=== PATIENT | female | born 1975 | race Caucasian/White ===

== ENCOUNTER 2016-09-05 00:37 | Inpatient (IN) | payer MEDICAID ==
[2016-09-05 00:51] VITALS: BMI 24.5
[2016-09-05] MEDS ORDERED: Morphine 2 mg/ml ISec IVP STA (00:51)
--- NOTE | 2016-09-05 00:57 | ED PDOC ---
Arrival/HPI - General Time Seen by Provider: 09/05/16 00:39 Historian: Patient - History of Present Illness Narrative History of Present Illness (Text): 09/05/16 01:07 Felisa Little is a 41 year old female, whose past medical history includes seizure, diverticulitis, appendectomy, and tubal ligation, presents to the emergency department for evaluation following a seizure episode prior to arrival. As per family who called ambulance, patient had a seizure episode while she was in the bath tub. Currently patient is alert, oriented X3 and is complaining of abdominal pain. States she did not take her seizure medications today. Denies any fever, chills, headache, nausea, vomiting, urinary symptoms, or any other complaints at this time. 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 - Integumentary Hx Dermatological Disorder: No - Musculoskeletal/Rheumatological Hx Falls: No - Gastrointestinal Hx Gastrointestinal Disorders: Yes Hx Diverticulitis: Yes - Genitourinary/Gynecological Hx Genitourinary Disorders: No - Psychiatric Hx Depression: No Hx Emotional Abuse: No Hx Physical Abuse: No Hx Substance Use: No - Surgical History Hx Appendectomy: Yes Other/Comment: ovarian cysts removed - Anesthesia Hx Anesthesia: Yes Hx Anesthesia Reactions: No - Suicidal Assessment Feels Threatened In Home Enviroment: No Family/Social History - Physician Review Nursing Documentation Reviewed: Yes Family/Social History: No Known Family HX Smoking Status: Former Smoker Hx Alcohol Use: Yes Hx Substance Use: No Hx Substance Use Treatment: No Allergies/Home Meds Allergies/Adverse Reactions: Allergies No Known Allergies Allergy (Verified 09/05/16 00:51) Review of Systems - Physician Review All systems were reviewed & negative as marked: Yes - Review of Systems Constitutional: Normal. absent: Fatigue, Fevers Respiratory: Normal. absent: SOB, Cough Cardiovascular: Normal. absent: Chest Pain Gastrointestinal: Abdominal Pain. absent: Diarrhea, Nausea, Vomiting Neurological: Seizure. absent: Headache, Dizziness Psychiatric: Normal Physical Exam Vital Signs Reviewed: Yes Vital Signs Temp Pulse Resp BP Pulse Ox 09/05/16 05:28 52 L 14 111/62 100 09/05/16 04:37 60 22 113/60 100 09/05/16 03:28 98.5 F 72 24 124/77 100 09/05/16 01:57 66 26 H 127/77 97 09/05/16 00:51 97.7 F 67 20 140/76 97 Temperature: Afebrile Blood Pressure: Normal Pulse: Regular Respiratory Rate: Normal Appearance: Positive for: Well-Appearing, Non-Toxic, Comfortable Pain Distress: None Mental Status: Positive for: Alert and Oriented X 3 - Systems Exam Head: Present: Atraumatic, Normocephalic Pupils: Present: PERRL Extroacular Muscles: Present: EOMI Conjunctiva: Present: Normal Mouth: Present: Moist Mucous Membranes Neck: Present: Normal Range of Motion Respiratory/Chest: Present: Clear to Auscultation, Good Air Exchange. No: Respiratory Distress, Accessory Muscle Use Cardiovascular: Present: Regular Rate and Rhythm, Normal S1, S2. No: Murmurs Abdomen: Present: Tenderness (diffuse abdominal tenderness ), Normal Bowel Sounds. No: Distention, Peritoneal Signs, Rebound, Guarding Upper Extremity: Present: Normal Inspection. No: Cyanosis, Edema Lower Extremity: Present: Normal Inspection. No: Edema Neurological: Present: GCS=15, CN II-XII Intact, Speech Normal, Motor Func Grossly Intact, Normal Sensory Function Skin: Present: Warm, Dry, Normal Color. No: Rashes Psychiatric: Present: Alert, Oriented x 3, Normal Insight, Normal Concentration Medical Decision Making ED Course and Treatment: 09/05/16 00:55 Impression: A 41 year old female who presents to emergency department for evaluation of seizure episode prior to arrival. Plan: -- EKG -- Labs, cardiac enzymes -- Keppra -- Morphine -- Protonix -- IV fluids -- Blood culture -- Urine Culture -- Urinalysis -- Reassess and disposition Progress Notes: 09/05/16 01:45 Patient with lactate of 3.3. Code sepsis called. 09/05/16 04:52 EKG reviewed by me: NSR @ 64 BPM. Normal [place]. Normal interval. EXAM: CT Abdomen and Pelvis Without Intravenous Contrast FINDINGS: Lower thorax: The bilateral lung bases are clear. ABDOMEN: Liver: Fatty infiltration of the liver is again identified. Gallbladder and bile ducts: The gallbladder is decompressed, without and with calcified stones. No intra-extrahepatic biliary ductal dilation. Pancreas: Limited evaluation secondary to the lack of intravenous contrast. Spleen: No acute findings. Adrenals: No acute findings. Kidneys and ureters: No obstructing stones. No hydronephrosis. PELVIS: Bladder: No acute findings. Reproductive: A 32 mm focus of decreased attenuation is identified within the left hemipelvis, statistically representing a cyst. The uterus is enlarged, and nodular in contour. Appendix: The appendix is not definitively visualized, however there is no pericecal inflammatory change to suggest appendicitis. ABDOMEN and PELVIS: Stomach and bowel: No acute findings. Peritoneum: No acute findings. Lymph nodes: Limited evaluation without intravenous contrast. Vasculature: No aortic aneurysm. Bones: No acute fracture. IMPRESSION: Findings within the left hemipelvis which statistically represent a cyst, for which ultrasound may be performed for confirmation. 09/05/16 04:55 Case discussed with who is aware and agrees with the plan to admit patient to [facility] for abdominal pain and sepsis. Accepts patient under hospitalist service. - Lab Interpretations Microbiology Results: Microbiology Results 09/05/16 02:30 Urine,Clean Catch Urine Culture - Final No Growth (<1,000 CFU/ML) 09/05/16 01:50 Blood-Venous Blood Culture - Preliminary NO GROWTH AFTER 24 HOURS 09/05/16 01:30 Blood-Venous Blood Culture - Preliminary NO GROWTH AFTER 24 HOURS Lab Results: 09/05/16 00:45 09/05/16 00:45 Lab Results 09/05/16 02:30: Urine Color Yellow, Urine Appearance Cloudy, Urine pH 8.0, Ur Specific [place] 1.020, Urine Protein Negative, Urine Glucose (UA) Negative, Urine Ketones Trace H, Urine Blood Small H, Urine Nitrate Negative, Urine Bilirubin Negative, Urine Urobilinogen 0.2, Ur Leukocyte Esterase Small H, Urine RBC 1 - 3, Urine WBC 2 - 5, Ur Epithelial Cells 6 - 8, Urine Bacteria Many , Urine Other Mucus 09/05/16 01:10: pO2 44, VBG pH 7.46 H, VBG pCO2 30.0 L, VBG HCO3 21.3, VBG Total CO2 22.2, VBG O2 Sat (Calc) 84.9 H, VBG Base Excess -1.5 L, VBG Potassium 5.2, Glucose 126 H, Lactate 3.3 H, FiO2 21.0, Sodium 140.0, Chloride 111.0 H, Venous Blood Potassium 5.2 09/05/16 00:45: Phosphorus 2.4 L, Magnesium 2.2 09/05/16 00:45: Procalcitonin < 0.05 L 09/05/16 00:45: Sodium 141, Potassium 3.7, Chloride 109 H, Carbon Dioxide 19 L, Anion Gap 17, BUN 12, Creatinine 0.7, Est GFR ( Amer) > 60, Est GFR (Non- Af Amer) > 60, Random Glucose 134 H, Calcium 9.7, Total Bilirubin 0.9, AST 29, ALT 43, Alkaline Phosphatase 69, Lactate Dehydrogenase 532, Total Creatine Kinase 126, Troponin I < 0.01, Total Protein 8.1, Albumin 4.2, Globulin 3.9, Albumin/Globulin Ratio 1.1, Amylase 88, Lipase 98 09/05/16 00:45: PT 11.2, INR 1.04, APTT 23.6 L 09/05/16 00:45: WBC 15.4 H D, RBC 4.42, Hgb 10.5 L, Hct 32.4 L, MCV 73.3 L, MCH 23.8 L, MCHC 32.4, RDW 16.5 H, Plt Count 362, MPV 9.8, Gran % 75.9 H, Lymph % ( Auto) 15.2 L, [place] % (Auto) 7.9 H, Eos % (Auto) 0.7 L, Baso % (Auto) 0.3, Gran # 11.65 H, Lymph # 2.3, Ma[place] # 1.2 H, Eos # 0.1, Baso # 0.04 - RAD Interpretation Radiology Orders: 09/05/16 01:10 ABD & PELVIS W/O PO OR IV CONT [CT] Stat 09/05/16 04:00 CHEST PORTABLE [RAD] Stat - Medication Orders Current Medication Orders: Acetaminophen (Tylenol 325mg Tab) 650 mg PO Q6H PRN PRN Reason: Pain, moderate (4-7) Last Admin: 09/06/16 08:37 Dose: 650 mg Re-Assess: [facility] Pain/Vitals Document 09/06/16 09:37 [facility] (Rec: 09/06/16 15:52 [id number] Pain Reassessment Is This A Pain ReAssessment? Yes Presence of Pain Presence of Pain Yes Levetiracetam (Keppra 500mg Ivpb) 500 mg in 100 mls @ 300 mls/hr IV Q12 [facility] Last Admin: 09/06/16 10:21 Dose: 300 mls/hr Sodium Chloride (Sodium Chloride 0.9%) 1,000 mls @ 100 mls/hr IV .Q10H [facility] Last Admin: 09/06/16 20:53 Dose: 100 mls/hr Morphine Sulfate (Morphine) 0.5 mg IVP Q4H PRN PRN Reason: Pain, moderate (4-7) Last Admin: 09/06/16 15:29 Dose: 0.5 mg Re-Assess: [facility] Pain Assessment Document 09/06/16 16:29 [facility] (Rec: 09/06/16 16:57 [id number] Pain Reassessment Is this a pain reassessment? Yes Sleep Is patient sleeping during reassessment? No Presence of Pain Presence of Pain Yes Pain Scale Used Pain Scale Used Numeric Description Intensity of Pain at present 1 Ondansetron HCl (Zofran Inj) 4 mg IVP Q6H PRN PRN Reason: Nausea/Vomiting Last Admin: 09/06/16 08:38 Dose: 4 mg Pantoprazole Sodium (Protonix Inj) 40 mg IVP BID [facility] Last Admin: 09/06/16 17:53 Dose: 40 mg Polyethylene Glycol (Miralax) 17 gm PO BID [facility] Last Admin: 09/06/16 17:54 Dose: 17 gm Discontinued Medications Heparin Sodium (Porcine) (Heparin) 5,000 units SC Q8 [facility] PRN Reason: Protocol Last Admin: 09/06/16 05:03 Dose: 5,000 units Hydromorphone HCl (Dilaudid) 2 mg IVP STAT ST[facility] Stop: 09/05/16 01:55 Last Admin: 09/05/16 02:13 Dose: 2 mg Hydromorphone HCl (Dilaudid) 2 mg IVP STAT STA Stop: 09/05/16 04:30 Last Admin: 09/05/16 04:48 Dose: 2 mg Re-Assess: [facility] Pain Assessment Document 09/05/16 05:48 [facility] (Rec: 09/05/16 06:43 [facility] [id number]) Pain Reassessment Is this a pain reassessment? Yes Sleep Is patient sleeping during reassessment? Yes Levetiracetam (Keppra 500mg Ivpb) 500 mg in 100 mls @ 400 mls/hr IVPB STAT STA Stop: 09/05/16 01:07 Last Admin: 09/05/16 01:55 Dose: 400 mls/hr Pantoprazole Sodium 40 mg/ (Sodium Chloride) 100 mls @ 400 mls/hr IV STAT STA Stop: 09/05/16 01:05 Last Admin: 09/05/16 02:12 Dose: 400 mls/hr Sodium Chloride (Sodium Chloride 0.9%) 1,000 mls @ 100 mls/hr IV .Q10H [facility] Stop: 09/05/16 10:50 Last Admin: 09/05/16 02:49 Dose: 100 mls/hr Sodium Chloride 1,800 ml/ IV (SUPPLIES) 1,800 mls @ 3,538.02 mls/hr IV ONCE ONE PRN Reason: 60 ML/KG/HR Stop: 09/05/16 01:38 Last Admin: 09/05/16 02:49 Dose: 3,538.02 mls/hr Vancomycin HCl (Vancomycin 1gm) 1 gm in 250 mls @ 167 mls/hr IVPB STAT ST[facility] PRN Reason: Protocol Stop: 09/05/16 03:06 Last Admin: 09/05/16 02:47 Dose: 167 mls/hr Piperacillin Sod/Tazobactam Sod (Zosyn 4.5 Gm In Ns 100ml) 4.5 gm in 100 mls @ 200 mls/hr IVPB STAT STA PRN Reason: Protocol Stop: 09/05/16 02:06 Last Admin: 09/05/16 02:35 Dose: 200 mls/hr Metronidazole (Flagyl) 500 mg in 100 mls @ 100 mls/hr IVPB Q8 [facility] PRN Reason: Protocol Last Admin: 09/06/16 15:21 Dose: 100 mls/hr Ceftriaxone Sodium (Rocephin 1 Gram Ivpb) 1 gm in 100 mls @ 100 mls/hr IVPB DAILY [facility] PRN Reason: Protocol Last Admin: 09/06/16 13:31 Dose: 100 mls/hr Sodium Chloride (Sodium Chloride 0.9%) 1,000 mls @ 100 mls/hr IV .Q10H [facility] Last Admin: 09/05/16 15:00 Dose: Sodium Chloride (Sodium Chloride 0.9%) 100 mls @ 100 mls/hr IV .Q1H [facility] Last Admin: 09/05/16 19:54 Dose: 100 mls/hr Levetiracetam (Keppra) 500 mg PO BID [facility] Last Admin: 09/05/16 10:41 Dose: Morphine Sulfate (Morphine) 2 mg IVP STAT STA Stop: 09/05/16 00:52 Last Admin: 09/05/16 01:23 Dose: 2 mg Re-Assess: ZEINAB Pain Assessment Document 09/05/16 02:23 [facility] (Rec: 09/05/16 06:43 [facility] [id number]) Pain Reassessment Is this a pain reassessment? Yes Sleep Is patient sleeping during reassessment? Yes Ondansetron HCl (Zofran Inj) 4 mg IVP STAT STA Stop: 09/05/16 00:52 Last Admin: 09/05/16 01:23 Dose: 4 mg Pantoprazole Sodium (Protonix Inj) 40 mg IVP DAILY [facility] Last Admin: 09/05/16 10:43 Dose: 40 mg Potassium Chloride (Potassium Chloride Oral Soln) 40 meq PO ONCE ONE Stop: 09/06/16 09:20 Last Admin: 09/06/16 10:20 Dose: 40 meq Potassium Phos/Sodium Phos (Neutra-Phos) 1 pkt PO ONCE ONE Stop: 09/06/16 14:24 Last Admin: 09/06/16 15:23 Dose: 1 pkt - Scribe Statement The provider has reviewed the documentation as recorded by the Aimee Couch Provider Attestation: All medical record entries made by the Busteribjanuary were at my direction and personally dictated by me. I have reviewed the chart and agree that the record accurately reflects my personal performance of the history, physical exam, medical decision making, and the department course for this patient. I have also personally directed, reviewed, and agree with the discharge instructions and disposition. Disposition/Present on Arrival - Present on Arrival Any Indicators Present on Arrival: No History of DVT/PE: No History of Uncontrolled Diabetes: No Urinary Catheter: No History Surgical Site Infection Following: None - Disposition Have Diagnosis and Disposition been Completed?: Yes Diagnosis: Seizure, Abdominal pain Disposition: HOSPITALIZED Disposition Time: 05:00 Condition: GOOD
[2016-09-05 00:59] LABS: ADD MANUAL DIFF? NO
[2016-09-05 01:02] LABS: BASO # 0.04 K/mm3 (0.0-2.0); BASO % 0.3 % (0.0-3.0); EOS # 0.1 (0.0-0.7); EOS % 0.7 % (1.5-5.0); GRAN # 11.65 (1.4-6.5); GRAN % 75.9 % (50.0-68.0); HEMATOCRIT 32.4 % (36.0-48.0); LYMPH # 2.3 (1.2-3.4); LYMPH % 15.2 % (22.0-35.0); MEAN CELL VOLUME 73.3 fL (80.0-105.0); MEAN CORPUSCULAR HEMOGLOBIN 23.8 pg (25.0-35.0); MEAN CORPUSCULAR HGB CONC 32.4 g/dl (31.0-37.0); MEAN PLATELET VOLUME 9.8 fl (7.0-11.0); MONO # 1.2 (0.1-0.6); MONO % 7.9 % (1.0-6.0); PLATELET COUNT 362 10^3/uL (120.0-450.0); RED CELL DISTRIBUTION WIDTH 16.5 % (11.5-14.5); WHITE BLOOD COUNT 15.4 10^3/ul (4.5-11.0)
[2016-09-05 01:07] LABS: INR 1.04 (0.93-1.08); PARTIAL THROMBOPLASTIN TIME 23.6 Seconds (23.7-30.8)
[2016-09-05 01:10] LABS: ALB/GLOB RATIO 1.1 (1.1-1.8); ALKALINE PHOSPHATASE 69 U/L (38-133); ALT/SGPT 43 U/L (7-56); AMYLASE 88 U/L (35-125); AST/SGOT 29 U/L (15-39); BILIRUBIN,TOTAL 0.9 mg/dL (0.2-1.3); BLOOD UREA NITROGEN 12 mg/dL (7-21); CALCIUM 9.7 mg/dL (8.4-10.5); CARBON DIOXIDE 19 mmol/L (21-33); GFR AFRICAN-AMERICAN > 60; GLUCOSE,RANDOM 134 mg/dL (70-110); LIPASE 98 U/L (23-300); POTASSIUM 3.7 mmol/L (3.6-5.0); SODIUM 141 mmol/L (132-148); TOTAL PROTEIN 8.1 g/dL (5.8-8.3)
[2016-09-05 01:12] LABS: CHLORIDE 109 mmol/L (98-107)
[2016-09-05 01:21] LABS: VENOUS BLOOD GAS BASE EXCESS -1.5 mmol/L (0.0-2.0); VENOUS BLOOD PH 7.46 (7.32-7.43)
[2016-09-05] MEDS: Sodium Chloride 0.9% 1,000 ML IV STA ×3 (01:23→18:00)
[2016-09-05] MEDS: levETIRAcetam 500mg IVPB 500 MG/100 ML BAG IVPB STA ×2 (01:24→01:55)
[2016-09-05 01:32] LABS: TROPONIN I < 0.01 ng/mL
[2016-09-05] MEDS ORDERED: Vancomycin 1gm in NS 250ml 1 GM/250 ML BAG IVPB STA (01:37)
[2016-09-05] MEDS ORDERED: HYDROmorphone 2 mg/ml ISec IVP STA ×2 (01:54→04:29)
[2016-09-05] MEDS: Pantoprazole 40 MG in Sodium Chloride 0.9% 100 ML IV STA ×2 (01:55→02:12)
[2016-09-05] MEDS: Piperacill/Tazo 4.5gm in NS 4.5 GM/100 ML BAG IVPB STA ×2 (02:12→02:35)
[2016-09-05 02:19] LABS: MAGNESIUM 2.2 mg/dL (1.7-2.2); PHOSPHOROUS 2.4 mg/dL (2.5-4.5)
[2016-09-05 03:04] LABS: URINE BILIRUBIN NEGATIVE (NEGATIVE); URINE BLOOD SMALL (NEGATIVE); URINE GLUCOSE (UA) NEGATIVE (NEGATIVE); URINE KETONE TRACE mg/dL (NEGATIVE); URINE LEUKOCYTE ESTERASE SMALL Leu/uL (NEGATIVE); URINE PROTEIN NEGATIVE mg/dL (<30 mg/dL); URINE UROBILINOGEN 0.2 E.U./dL (<1 E.U./dL)
[2016-09-05 03:10] LABS: URINE APPEARANCE CLOUDY (CLEAR); URINE COLOR YELLOW (YELLOW)
[2016-09-05 03:39] LABS: URINE BACTERIA MANY (NEG)
--- NOTE | 2016-09-05 03:56 | CT ---
EXAM: CT Abdomen and Pelvis Without Intravenous Contrast CLINICAL HISTORY: 41 years old, female; Pain; Abdominal pain; Generalized; Additional info: Abd pain TECHNIQUE: Axial computed tomography images of the abdomen and pelvis without intravenous contrast. This CT exam was performed using one or more of the following dose reduction techniques: automated exposure control, adjustment of the mA and/or kV according to patient size, and/or use of iterative reconstruction technique. Coronal and sagittal reformatted images were created and reviewed. COMPARISON: CT - ABD PELVIS W/O PO OR IV CONT 01/02/2016 11:27:29 AM FINDINGS: Lower thorax: The bilateral lung bases are clear. ABDOMEN: Liver: Fatty infiltration of the liver is again identified. Gallbladder and bile ducts: The gallbladder is decompressed, without and with calcified stones. No intra-extrahepatic biliary ductal dilation. Pancreas: Limited evaluation secondary to the lack of intravenous contrast. Spleen: No acute findings. Adrenals: No acute findings. Kidneys and ureters: No obstructing stones. No hydronephrosis. PELVIS: Bladder: No acute findings. Reproductive: A 32 mm focus of decreased attenuation is identified within the left hemipelvis, statistically representing a cyst. The uterus is enlarged, and nodular in contour. Appendix: The appendix is not definitively visualized, however there is no pericecal inflammatory change to suggest appendicitis. ABDOMEN and PELVIS: Stomach and bowel: No acute findings. Peritoneum: No acute findings. Lymph nodes: Limited evaluation without intravenous contrast. Vasculature: No aortic aneurysm. Bones: No acute fracture. IMPRESSION: Findings within the left hemipelvis which statistically represent a cyst, for which ultrasound may be performed for confirmation.
[2016-09-05 04:39] LABS: VENOUS BLOOD GAS BASE EXCESS -5.5 mmol/L (0.0-2.0); VENOUS BLOOD PH 7.24 (7.32-7.43)
--- NOTE | 2016-09-05 05:45 | CP.PCM.HP ---
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 Pt reports that she does not remember the events and remembers waking up in the ambulance. Pt is accompanied by her daughter who reports that the event did not look like a seizure, as her mother was complaining of chills, but was not actively shaking. The pt's daughter reports that her younger brother witnessed the event. Pt also reports that she is also experiencing mid abdominal pain, nausea, and has vomited 2 times day. Pt reports that she has a decreased appetite. Pt also reports chills and a headache. Pt denies fever, chest pain, shortness of breath, diarrhea, and constipation. 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 absent: Fever - EENT Eyes: absent: Blurred Vision Ears: absent: Disequilibrium - Cardiovascular Cardiovascular: absent: Chest Pain, Dyspnea - Respiratory Respiratory: absent: Cough - Gastrointestinal Gastrointestinal: Abdominal Pain, Nausea, Vomiting. absent: Diarrhea - Genitourinary Genitourinary: absent: Dysuria - Musculoskeletal Musculoskeletal: Back Pain - Neurological Neurological: Headaches. absent: Dizziness - Hematologic/Lymphatic Hematologic: absent: Easy Bleeding Past Patient History - Infectious Disease Hx of Infectious Diseases: None - Tetanus Immunizations Tetanus Immunization: Unknown - Past Social History Smoking Status: Former Smoker - CARDIAC Hx Cardiac Disorders: No - PULMONARY Hx Asthma: Yes (as a child) - NEUROLOGICAL Hx Seizures: Yes (keppra daily) - HEENT Hx HEENT Problems: No - RENAL Hx Chronic Kidney Disease: No - HEMATOLOGICAL/ONCOLOGICAL Hx Blood Disorders: Yes Other/Comment: lead poisoning as a child - INTEGUMENTARY Hx Dermatological Problems: No - MUSCULOSKELETAL/RHEUMATOLOGICAL Hx Falls: No - GASTROINTESTINAL Hx Gastrointestinal Disorders: Yes Hx Diverticulitis: Yes - GENITOURINARY/GYNECOLOGICAL Hx Genitourinary Disorders: No - PSYCHIATRIC Hx Depression: No Hx Emotional Abuse: No Hx Physical Abuse: No Hx Substance Use: No - SURGICAL HISTORY Hx Appendectomy: Yes Other/Comment: ovarian cysts removed - ANESTHESIA Hx Anesthesia: Yes Hx Anesthesia Reactions: No Meds Allergies/Adverse Reactions: Allergies Allergy/AdvReac Type Severity Reaction Status Date / Time No Known Allergies Allergy Verified 09/05/16 00:51 Physical Exam - Constitutional Appears: No Acute Distress - Head Exam Head Exam: ATRAUMATIC, NORMOCEPHALIC - Eye Exam Eye Exam: EOMI, PERRL - ENT Exam ENT Exam: Mucous Membranes Moist. absent: Mucous Membranes Dry - Respiratory Exam Respiratory Exam: Clear to Auscultation Bilateral. absent: Rales, Rhonchi, Wheezes - Cardiovascular Exam Cardiovascular Exam: +S1, +S2. absent: Gallop, Rubs - GI/Abdominal Exam GI & Abdominal Exam: Soft, Tenderness. absent: Distended, Rigid - Extremities Exam Extremities exam: Positive for: full ROM. Negative for: pedal edema - Neurological Exam Neurological exam: Alert, Oriented x3 - Psychiatric Exam Psychiatric exam: Normal Affect, Normal Mood - Skin Skin Exam: Normal Color, Warm Results - Vital Signs Recent Vital Signs: Last Vital Signs Temp 98.5 F 09/05/16 03:28 Pulse 60 09/05/16 04:37 Resp 22 09/05/16 04:37 BP 113/60 09/05/16 04:37 Pulse Ox 100 09/05/16 04:37 - Labs Result Diagrams: 09/05/16 00:45 09/05/16 00:45 Labs: Laboratory Results - last 24 hr 09/05/16 04:15 pO2 45 VBG pH 7.24 L VBG pCO2 52.0 VBG HCO3 22.3 VBG Total CO2 23.9 VBG O2 Sat (Calc) 77.3 H VBG Base Excess -5.5 L VBG Potassium 3.5 L Sodium 141.0 Chloride 118.0 H Glucose 131 H Lactate 1.6 FiO2 21.0 Venous Blood Potassium 3.5 L Assessment & Plan - Assessment and Plan (Free Text) Assessment: SIRS/Code Sepsis: WBC - 15.4 Initial lactate 3.3, repeat lactate 1.6 Afebrile, nontachycardic, normotensive CXR pending read Procalcitonin pending Abd/Pelvis CT w/o po or IV contrast- left hemipelvic cyst (please see full report) Blood cultures, urine cultures pending Urinalysis: urine positive for blood, trace ketones, leukocyte esterase positive Vacomycin 1 gm IV 1d Zosyn 3.375 gm IV q6h Abdominal Pain/Vomiting: Abd/Pelvis CT w/o po or Iv contrast- left hemipelvic cyst (please see full report) Procalcitonin pending Zofran 4 mg IV q4h prn for nausea NPO NS IVF 100 cc/hr Morphine 0.5 mg IV q4h prn for pain Anemia: H/H: 10.5/32.4 Iron studies pending: iron, TIBC, transferrin, ferritin Prophylactic Measures: GI: Protonix 40 mg IV qd DVT: SCDs, heparin 5000 units sc q8h <Mila Ritter - Last Filed: 09/05/16 07:03> Results - Vital Signs Recent Vital Signs: Last Vital Signs Temp 98.5 F 09/05/16 03:28 Pulse 52 L 09/05/16 05:28 Resp 14 09/05/16 05:28 BP 111/62 09/05/16 05:28 Pulse Ox 100 09/05/16 05:28 - Labs Result Diagrams: 09/05/16 00:45 09/05/16 00:45 Labs: Laboratory Results - last 24 hr 09/05/16 04:15 pO2 45 VBG pH 7.24 L VBG pCO2 52.0 VBG HCO3 22.3 VBG Total CO2 23.9 VBG O2 Sat (Calc) 77.3 H VBG Base Excess -5.5 L VBG Potassium 3.5 L Sodium 141.0 Chloride 118.0 H Glucose 131 H Lactate 1.6 FiO2 21.0 Venous Blood Potassium 3.5 L Attending/Attestation - Attestation I have personally seen and examined this patient.: Yes I have fully participated in the care of the patient.: Yes I have reviewed all pertinent clinical information: Yes Notes (Text): 09/05/16 07:02 Patient was seen when she was in bed # 16 in the ER. Agree with history, physical examination, assessment and plan.
[2016-09-05] MEDS ORDERED: Morphine 2 mg/ml ISec IVP PRN (06:35)
--- NOTE | 2016-09-05 07:16 | PCM.SEPTIC ---
Sepsis Progress Note - Reassessment Type Date of Evaluation: 09/05/16 Time of Evaluation: 07:00 Reassessment Type: Non-invasive reassessment - Non Invasive Reassessment Were the most recent vital sign reviewed: Yes Vital Sign (Latest): Temp Pulse Resp BP Pulse Ox 98.5 F 52 L 14 111/62 100 09/05/16 03:28 09/05/16 05:28 09/05/16 05:28 09/05/16 05:28 09/05/16 05:28 7am vitals BP: 103/55 P: 54 100% on 2L O2 RR: 18 Tepm: 97.7 Cardiovascular: Yes: Regular Rate, Rhythm. No: Edema Respiratory: Yes: Normal Breath Sounds. No: Accessory Muscle Use, Rales, Wheezing Capillary Refill: Normal (Less than 2 sec) Pulses: Normal Radial, Normal Dorsalis Pedis, Normal Posterior Tibialis Skin: Normal Color, Warm, Dry
--- NOTE | 2016-09-05 08:08 | RAD ---
HISTORY: SEPSIS COMPARISON: 01/08/2016 FINDINGS: LUNGS: No active pulmonary disease. PLEURA: No significant pleural effusion identified, no pneumothorax apparent. CARDIOVASCULAR: Normal. OSSEOUS STRUCTURES: No significant abnormalities. VISUALIZED UPPER ABDOMEN: Normal. OTHER FINDINGS: None. IMPRESSION: No active disease.
[2016-09-05 08:33] VITALS: RESP 18
--- NOTE | 2016-09-05 08:48 | CT ---
PROCEDURE: CT HEAD WITHOUT CONTRAST. HISTORY: Headache, s/p fall at home COMPARISON: 01/02/2016 TECHNIQUE: Axial computed tomography images were obtained through the head/brain without intravenous contrast. Radiation dose: Total exam DLP = 688.95 mGy-cm. This CT exam was performed using one or more of the following dose reduction techniques: Automated exposure control, adjustment of the mA and/or kV according to patient size, and/or use of iterative reconstruction technique. FINDINGS: HEMORRHAGE: No intracranial hemorrhage. BRAIN: [place]field-white matter differentiation is preserved. There is no mass, mass effect or abnormal extra-axial fluid collection. VENTRICLES: The ventricles are normal in size, shape and configuration. There is mild asymmetry in the size of the lateral ventricles, right larger than left, likely an anatomic variant. CALVARIUM: There is no calvarial fracture or extracranial soft tissue swelling. PARANASAL SINUSES: There is scattered mucosal thickening in the ethmoid air cells. The remaining included paranasal sinuses are predominantly clear. MASTOID AIR CELLS: Predominantly clear. OTHER FINDINGS: None. IMPRESSION: No acute intracranial abnormality.
[2016-09-05] MEDS: metroNIDAZOLE IV 500 mg/100 ml 500 MG/100 ML BAG IVPB SCH ×3 (09:02→21:10)
[2016-09-05 09:26] LABS: IRON 29 ug/dL (45-180)
[2016-09-05] MEDS: cefTRIAXone 1 gm 1 GM/100 ML BAG IVPB SCH (10:40)
[2016-09-05] MEDS: levETIRAcetam 500mg IVPB 500 MG/100 ML BAG IV SCH ×2 (11:23→21:12)
[2016-09-05] MEDS ORDERED: Piperacillin/Tazobact 3.375 gm 100 ML IVPB SCH (12:00)
--- NOTE | 2016-09-05 12:49 | CON ---
DATE: 09/05/2016 This is a 41-year-old female with a past medical history of asthma and diverticulitis and appendiciti s. Came with a past medical history of seizures. The patient is on Keppra. Came to the hospital wi th abdominal pain and workup in progress. PAST MEDICAL HISTORY: As above. ALLERGIES: No known drug allergies. SOCIAL HISTORY: The patient does not smoke, does not drink. PHYSICAL EXAMINATION: HEENT: Normocephalic, atraumatic. VITAL SIGNS: Blood pressure 113/60. NECK: Supple. NEUROLOGIC: Alert, awake, oriented x 3. No aphasia. Cranial nerves II-XII were tested. Pupils jerri ctive. EOM intact. Visual field full. No facial asymmetry. Tongue midline. Motor examination: M oves all the extremities equally. Tone normal. Deep tendon reflexes 1+. Both plantars are downgoin g. Sensory appears intact. Cerebellar, gait deferred. Workup in progress. WBC 15.4, hemoglobin 10.5, hematocrit 32.4, platelets 362. Sodium 141, potassiu m 3.7, chloride 109, CO2 19, glucose 134, BUN 12, creatinine 0.7. Continue present management. We will follow up. Noam Pena MD cc: [id number] TT: 09/05/2016 12:48:28 Confirmation # [id number] Dictation # [id number]
--- NOTE | 2016-09-05 12:53 | CON ---
DATE: 09/05/2016 Seen and examined at the bedside this morning. REQUEST FOR CONSULT: For abdominal pain. 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 The patient was brought by ambulance and is in the Emergency Room, awake and alert, complaining of abdominal pain. Originally, the patient comp lained of abdominal pain in the right quadrant, but now complaints of diffuse abdominal pain. Appare ntly, the patient did not take her seizure medication yesterday. Right now, the patient on admission was found to have elevated WBC count. The patient complained of having chills and a headache. Matheus es any known fever, chest pain, shortness of breath. She does report constipation and complains of l ower abdominal pain. Denies any dysuria or hematuria. Denies any weight loss or loss of appetite. She does complain of reflux and usually has the abdominal pain after eating heavy foods, usually frie d food. Never had an endoscopy or colonoscopy. On admission, she did have a CT scan of abdomen and pelvis done without any oral or IV contrast and it showed enlarged uterus and nodular in contour as w ell as a 32 mm focus of decreased attenuation in the left hemipelvis likely representing a cyst. No reports of any overt GI bleed. 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 PAST SURGICAL HISTORY: She had abdominal surgery for a congenital condition, appendectomy. Last menstrual period was 08/2016. FAMILY HISTORY: Hypertension, asthma, diabetes, and cancer unknown. SOCIAL HISTORY: Denies tobacco use. Drinks 1 bottle of beer at least twice a month, only socially. Denies any substance abuse. ALLERGIES: No known drug allergies. MEDICATIONS: Reviewed as per MAR. REVIEW OF SYSTEMS: Systems were reviewed with positive findings, see HPI. VITAL SIGNS: Temperature is 97.7, blood pressure 103/51, pulse 54, respirations 18. LABORATORY DATA: WBC is 15.4, H and H are 10.5 and 32.4, platelets are 362. PT is 11.2, INR is 1.0 4, PTT 23.6. Chem: Sodium 141, K 3.7, BUN 12, creatinine 0.7. Total bilirubin is 0.9, AST 29, ALT 43, alkaline phosphatase is 69. LDH is 532. Total CK is 126. Iron level 29 (that is low), TIBC 350 , percent saturation is 8 (that is low). Troponin is negative x 1. Urine was done; it showed small leukocyte esterase, trace of ketones, small blood. OTHER DIAGNOSTICS: She had a chest x-ray and that showed no active disease, no active pulmonary dise ase, no pleural effusion, no pneumothorax. Head CT: No intracranial hemorrhage, no mass, no acute i ntracranial abnormality. PHYSICAL EXAMINATION: HEENT: Sclerae are anicteric. NECK: Supple. CARDIAC: S1, S2. LUNGS: Sounds are clear. ABDOMEN: With bowel sounds. Soft. Positive tenderness to lower suprapubic area, more on the lower abdomen and suprapubic area. No rebound, guarding, or organomegaly. EXTREMITIES: Positive pulses. No edema. NEUROLOGIC: The patient is sleepy, is lethargic, but easily arousable and oriented. ASSESSMENT: This is a 41-year-old female with history of seizures secondary to lead poisoning. Repo rtedly had seizure at home. The patient reportedly forgot to take her medication, but the patient hargrove s been complaining of abdominal discomfort that seems mostly lower abdomen. CT scan: No acute bowel findings, but noted to have a left hemipelvis cyst. The patient is status post code sepsis. Mild a nemia. PLAN: Currently n.p.o. If patient's symptoms improve, will start with a clear liquid diet. Agree w [facility] pelvic sonogram. On IV antibiotics as per ID; she is on ceftriaxone and Flagyl. Continue Proton ix 40 daily, Zofran p.r.n. nausea. Is on DVT prophylaxis of heparin. She is pending an evaluation w [facility] ID and neuro. Will continue to follow along with you. Thank you for this consultation and for allowing us to participate in your patient's care. Will make further recommendations based upon patient's clinical course. The patient was seen and case discuss ed with Dr. Hannon. Genevieve BRAVO cc: [id number] TT: 09/05/2016 12:52:35 Confirmation # [id number] Dictation # [id number] mn
[2016-09-05] MEDS ORDERED: Sodium Chloride 0.9% 1,000 ML IV SCH (14:30)
[2016-09-05] MEDS ORDERED: Vancomycin 1gm in NS 250ml 1 GM/250 ML BAG IVPB SCH (15:00)
[2016-09-05] MEDS: POLYETHYLENE GLYCOL 3350 17 GM/Dose PACKET PO SCH (17:22)
--- NOTE | 2016-09-05 19:11 | CP.PCM.CON ---
History of Present Illness - History of Present Illness History of Present Illness: 40 year old female with PMH of diverticulitis, histoty of appendicitis S/P appendectomy, asthma, S/P abdominal surgery as a child was brought in to the ED because the patient apparently passed out at home while taking a bath in a bathtub. There was no note of convulsions, no trauma to the head. The patient also denies headache or dizziness, no chest pain, no palpitations, no SOB, no diarrhea. The patient complains of abdominal pain, which has been ongoing for years but has worsened in the past 3-4 days. The patient is currently comfortable in bed, not in distress. In the ED, CT of the abdomen and pelvis showed a pelvic cyst and nodular and enlarged uterus. Infectious Diseases consult is requested to further evaluate and manage. Review of Systems - Review of Systems All systems: reviewed and no additional remarkable complaints except (as per HPI ) Past Patient History - Infectious Disease Hx of Infectious Diseases: None - Tetanus Immunizations Tetanus Immunization: Unknown - Past Social History Smoking Status: Former Smoker - CARDIAC Hx Cardiac Disorders: No - PULMONARY Hx Asthma: Yes (as a child) - NEUROLOGICAL Hx Seizures: Yes (keppra daily) - HEENT Hx HEENT Problems: No - RENAL Hx Chronic Kidney Disease: No - HEMATOLOGICAL/ONCOLOGICAL Hx Blood Disorders: Yes Other/Comment: lead poisoning as a child - INTEGUMENTARY Hx Dermatological Problems: No - MUSCULOSKELETAL/RHEUMATOLOGICAL Hx Falls: No - GASTROINTESTINAL Hx Gastrointestinal Disorders: Yes Hx Diverticulitis: Yes - GENITOURINARY/GYNECOLOGICAL Hx Genitourinary Disorders: No - PSYCHIATRIC Hx Depression: No Hx Emotional Abuse: No Hx Physical Abuse: No Hx Substance Use: No - SURGICAL HISTORY Hx Appendectomy: Yes Other/Comment: ovarian cysts removed - ANESTHESIA Hx Anesthesia: Yes Hx Anesthesia Reactions: No Meds Allergies/Adverse Reactions: Allergies Allergy/AdvReac Type Severity Reaction Status Date / Time No Known Allergies Allergy Verified 09/05/16 00:51 - Medications Medications: Current Medications Heparin Sodium (Porcine) (Heparin) 5,000 units SC Q8 [facility] PRN Reason: Protocol Sodium Chloride (Sodium Chloride 0.9%) 1,000 mls @ 100 mls/hr IV .Q10H STA Stop: 09/05/16 10:50 Last Admin: 09/05/16 02:49 Dose: 100 mls/hr Vancomycin HCl (Vancomycin 1gm) 1 gm in 250 mls @ 167 mls/hr IVPB DAILY [facility] PRN Reason: Protocol Piperacillin Sod/Tazobactam Sod (Zosyn 3.375 In Ns 100ml) 100 mls @ 200 mls/hr IVPB Q6 [facility] PRN Reason: Protocol Stop: 09/05/16 18:29 Metronidazole (Flagyl) 500 mg in 100 mls @ 100 mls/hr IVPB Q8 [facility] PRN Reason: Protocol Last Admin: 09/05/16 09:02 Dose: 100 mls/hr Ceftriaxone Sodium (Rocephin 1 Gram Ivpb) 1 gm in 100 mls @ 100 mls/hr IVPB DAILY [facility] PRN Reason: Protocol Levetiracetam (Keppra) 500 mg PO BID [facility] Morphine Sulfate (Morphine) 0.5 mg IVP Q4H PRN PRN Reason: Pain, moderate (4-7) Ondansetron HCl (Zofran Inj) 4 mg IVP Q6H PRN PRN Reason: Nausea/Vomiting Pantoprazole Sodium (Protonix Inj) 40 mg IVP DAILY [facility] Physical Exam - Constitutional Appears: Non-toxic, No Acute Distress - Head Exam Head Exam: NORMAL INSPECTION - ENT Exam ENT Exam: Mucous Membranes Moist - Neck Exam Neck exam: Negative for: Lymphadenopathy, Meningismus - Respiratory Exam Respiratory Exam: Decreased Breath Sounds - Cardiovascular Exam Cardiovascular Exam: +S1, +S2 - GI/Abdominal Exam GI & Abdominal Exam: Soft. absent: Tenderness Results - Vital Signs Recent Vital Signs: Last Vital Signs Temp 97.7 F 09/05/16 07:30 Pulse 54 L 09/05/16 07:30 Resp 18 09/05/16 07:30 BP 103/51 L 09/05/16 07:30 Pulse Ox 54 L 09/05/16 07:30 - Labs Result Diagrams: 09/05/16 00:45 09/05/16 00:45 Labs: Laboratory Results - last 24 hr 09/05/16 04:15 pO2 45 VBG pH 7.24 L VBG pCO2 52.0 VBG HCO3 22.3 VBG Total CO2 23.9 VBG O2 Sat (Calc) 77.3 H VBG Base Excess -5.5 L VBG Potassium 3.5 L Sodium 141.0 Chloride 118.0 H Glucose 131 H Lactate 1.6 FiO2 21.0 Venous Blood Potassium 3.5 L Assessment & Plan - Assessment and Plan (Free Text) Plan: Assessment Systemic Inflammatory Response Syndrome, R/O sepsis source to be determined Nodular and enalrged uterus, pelvic cyst diverticulitis history of appendicitis S/P appendectomy asthma S/P abdominal surgery Plan Started patient on Rocephin and Flagyl pending blood cx, urine cx Would recommend OB-Sleep Lab Technologist evaluation for the uterus and pelvis Will monitor clinically
[2016-09-05] MEDS ORDERED: Sodium Chloride 0.9% 100 ML IV SCH (19:52)
[2016-09-05] MEDS: Sodium Chloride 0.9% 1,000 ML IV SCH (20:28)
--- NOTE | 2016-09-05 22:51 | CARD ---
APPROVED REPORT EKG Measurement Heart [id number] <Conclusion> Normal sinus rhythm Normal ECG
[2016-09-06] MEDS: metroNIDAZOLE IV 500 mg/100 ml 500 MG/100 ML BAG IVPB SCH ×2 (05:02→15:21)
[2016-09-06] MEDS: Sodium Chloride 0.9% 1,000 ML IV SCH ×3 (05:03→20:53)
[2016-09-06 07:04] LABS: ADD MANUAL DIFF? NO
[2016-09-06 07:16] LABS: BASO # 0.03 K/mm3 (0.0-2.0); BASO % 0.3 % (0.0-3.0); EOS # 0.3 (0.0-0.7); EOS % 3.1 % (1.5-5.0); GRAN # 4.52 (1.4-6.5); GRAN % 48.8 % (50.0-68.0); HEMATOCRIT 28.5 % (36.0-48.0); LYMPH # 3.7 (1.2-3.4); LYMPH % 39.5 % (22.0-35.0); MEAN CELL VOLUME 75.2 fL (80.0-105.0); MEAN CORPUSCULAR HEMOGLOBIN 23.5 pg (25.0-35.0); MEAN CORPUSCULAR HGB CONC 31.2 g/dl (31.0-37.0); MEAN PLATELET VOLUME 9.9 fl (7.0-11.0); MONO # 0.8 (0.1-0.6); MONO % 8.3 % (1.0-6.0); PLATELET COUNT 306 10^3/uL (120.0-450.0); RED CELL DISTRIBUTION WIDTH 16.9 % (11.5-14.5); WHITE BLOOD COUNT 9.3 10^3/ul (4.5-11.0)
[2016-09-06 07:23] LABS: ALKALINE PHOSPHATASE 54 U/L (38-133); ALT/SGPT 73 U/L (7-56); AST/SGOT 53 U/L (15-39); BLOOD UREA NITROGEN 3 mg/dL (7-21); CALCIUM 7.9 mg/dL (8.4-10.5); CARBON DIOXIDE 23 mmol/L (21-33); CHLORIDE 108 mmol/L (98-107); GFR AFRICAN-AMERICAN > 60; GLUCOSE,RANDOM 81 mg/dL (70-110); POTASSIUM 3.2 mmol/L (3.6-5.0); SODIUM 140 mmol/L (132-148); TOTAL PROTEIN 6.4 g/dL (5.8-8.3)
[2016-09-06] MEDS ORDERED: Potassium Chloride 40 mEq/30 ml LIQ UD PO ONE (09:19)
[2016-09-06] MEDS: POLYETHYLENE GLYCOL 3350 17 GM/Dose PACKET PO SCH ×2 (10:21→17:54)
[2016-09-06] MEDS: levETIRAcetam 500mg IVPB 500 MG/100 ML BAG IV SCH ×2 (10:21→22:26)
--- NOTE | 2016-09-06 12:09 | US ---
HISTORY: follow up cyst LMP 08/11/2016 COMPARISON: CT abdomen and pelvis 09/05/2016 - reporting a 3.2 mm left agustin pelvic probable ovarian cyst TECHNIQUE: Transvaginal technique utilized FINDINGS: UTERUS: Measures 11.2 x 5.8 x 6.4 cm and is anteverted. Cm. Normal in size. There is mild heterogeneity to the uterine echotexture An anterior intramural fibroid - 2.0 x 1.8 x 1.7 cm is present. ENDOMETRIUM: Measures 11 mm in diameter. Unremarkable. CERVIX: No cervical abnormality identified. RIGHT OVARY: Measures 2.1 x 1.9 x 3.2 cm. No solid mass. Normal flow. LEFT OVARY: Measures 2.7 x 1.9 x 2.7 cm. No solid mass. Normal flow. Currently no left ovarian cyst is noted. There is free fluid in the cul-de-sac - consistent with a very recently ruptured left ovarian cyst. FREE FLUID: Yes OTHER FINDINGS: None. IMPRESSION: No left ovarian cyst now appreciated. Given the free fluid in the cul-de-sac in this 41-year-old patient, a very recent rupture of a prior left ovarian cyst is inferred Incidentally noted is an anterior intramural fibroid
[2016-09-06] MEDS: cefTRIAXone 1 gm 1 GM/100 ML BAG IVPB SCH (13:31)
[2016-09-06] MEDS ORDERED: Potassium & Sodium Phosphate PO ONE (14:23)
[2016-09-06] MEDS ORDERED: Iron Sucrose 100 mg/5 ml Inj IVP ONE (14:26)
--- NOTE | 2016-09-06 14:33 | CP.PCM.PN ---
<Jose E Celestin - Last Filed: 09/06/16 14:09> Subjective - Date & Time of Evaluation Date of Evaluation: 09/06/16 Time of Evaluation: 07:45 - Subjective Subjective: Hospitalist progress note: Pt seen and examined at bedside. No acute events overnight. Pt c/o mid epigastric and supra pubic abd pain, but denies any nausea or vomiting. Denies any headaches, dizziness, f/c, sob, cp, urinary or bm changes. Objective - Vital Signs/Intake and Output Vital Signs (last 24 hours): Temp Pulse Resp BP Pulse Ox 97.8 F 58 L 18 106/61 97 09/06/16 06:00 09/06/16 06:00 09/06/16 06:00 09/06/16 06:00 09/06/16 06:00 Intake and Output: 09/06/16 09/06/16 06:59 18:59 Intake Total 360 Output Total 600 Balance -240 - Medications Medications: Current Medications Acetaminophen (Tylenol 325mg Tab) 650 mg PO Q6H PRN PRN Reason: Pain, moderate (4-7) Last Admin: 09/06/16 08:37 Dose: 650 mg Metronidazole (Flagyl) 500 mg in 100 mls @ 100 mls/hr IVPB Q8 [facility] PRN Reason: Protocol Last Admin: 09/06/16 05:02 Dose: 100 mls/hr Ceftriaxone Sodium (Rocephin 1 Gram Ivpb) 1 gm in 100 mls @ 100 mls/hr IVPB DAILY [facility] PRN Reason: Protocol Last Admin: 09/06/16 13:31 Dose: 100 mls/hr Levetiracetam (Keppra 500mg Ivpb) 500 mg in 100 mls @ 300 mls/hr IV Q12 [facility] Last Admin: 09/06/16 10:21 Dose: 300 mls/hr Sodium Chloride (Sodium Chloride 0.9%) 1,000 mls @ 100 mls/hr IV .Q10H [facility] Last Admin: 09/06/16 05:03 Dose: 100 mls/hr Levetiracetam (Keppra) 500 mg PO BID [facility] Last Admin: 09/05/16 10:41 Dose: Not Given Morphine Sulfate (Morphine) 0.5 mg IVP Q4H PRN PRN Reason: Pain, moderate (4-7) Ondansetron HCl (Zofran Inj) 4 mg IVP Q6H PRN PRN Reason: Nausea/Vomiting Last Admin: 09/06/16 08:38 Dose: 4 mg Pantoprazole Sodium (Protonix Inj) 40 mg IVP BID [facility] Last Admin: 09/06/16 10:21 Dose: 40 mg Polyethylene Glycol (Miralax) 17 gm PO BID [facility] Last Admin: 09/06/16 10:21 Dose: 17 gm - Labs Labs: 09/06/16 06:45 09/06/16 06:45 PT 11.2 Seconds (9.9-11.8) 09/05/16 00:45 INR 1.04 (0.93-1.08) 09/05/16 00:45 APTT 25.2 Seconds (23.7-30.8) 09/05/16 09:00 - Constitutional Appears: No Acute Distress - Head Exam Head Exam: ATRAUMATIC, NORMAL INSPECTION, NORMOCEPHALIC - Eye Exam Eye Exam: EOMI, Normal appearance, PERRL - ENT Exam ENT Exam: Mucous Membranes Moist, Normal Exam - Neck Exam Neck Exam: Full ROM, Normal Inspection. absent: Lymphadenopathy - Respiratory Exam Respiratory Exam: Clear to Ausculation Bilateral. absent: Rales, Rhonchi, Wheezes - Cardiovascular Exam Cardiovascular Exam: REGULAR RHYTHM, RRR, +S1, +S2 - GI/Abdominal Exam GI & Abdominal Exam: Soft. absent: Distended, Tenderness - Extremities Exam Extremities Exam: Normal Capillary Refill. absent: Calf Tenderness, Joint Swelling, Pedal Edema - Neurological Exam Neurological Exam: Alert, Awake, Oriented x3 - Psychiatric Exam Psychiatric exam: Normal Affect, Normal Mood - Skin Skin Exam: Dry, Intact, Normal Color, Warm Assessment and Plan - Assessment and Plan (Free Text) Assessment: 41 F female with a past medical history of seizures secondary to lead poisoning as a child, diverticulitis, appendicitis, and juvenile asthma who presents following seizure, now complaining of abdominal pain. 1. Seizure 2/2 non compliance - Cont Keppra 500mg BID - F/u Neuro Dr Pena recs - F/u EEG - Seizure, fall, aspiration precautions - Head CT - negative 2. Abdominal Pain/Vomiting: - Liquid diet - Transvaginal US showed - no L ovarian cyct appreciated, free fluid in the cul de sac infers a very recent rupture of L ovarian cyst -Abd/Pelvis CT w/o po or Iv contrast- left hemipelvic cyst (please see full report) - F/u GI Dr Parvez benson -Zofran 4 mg IV q4h prn for nausea -NS IVF 100 cc/hr -Morphine 0.5 mg IV q4h prn for pain 3. Sepsis - resolved -WBC - 15.4 --> 9.3 this am -Cont Rocephin and Flagyl - F/u ID Dr Noni benson -Initial lactate 3.3, repeat lactate 1.6 -Afebrile, nontachycardic, normotensive -CXR - no active disease -Procalcitonin 0.05 -Blood cultures, urine cultures pending -Urinalysis: urine positive for blood, trace ketones, leukocyte esterase positive 4. Anemia: -H/H 10.5/32.4 dec to 8.9/28.5 likely dilution due to IV fluids -Iron studies: iron 29, TIBC 350, transferrin 26.1, ferritin5.7 - Iron sucrose - ordered 5. Hypokalemia - K of 3.2 - KCl 40meq PO ordered - replete as needed 6. Hypophosphatemia - P of 2.4 - Neutraphos ordered - replete as needed 7.GI/DVT ppx - Protonix and SCDs Case and plan was seen, reviewed, and discussed in detail with Dr Cole <Bill Cole - Last Filed: 09/06/16 15:54> Objective - Vital Signs/Intake and Output Vital Signs (last 24 hours): Temp Pulse Resp BP Pulse Ox 97.8 F 58 L 18 106/61 97 09/06/16 06:00 09/06/16 06:00 09/06/16 06:00 09/06/16 06:00 09/06/16 06:00 Intake and Output: 09/06/16 09/06/16 06:59 18:59 Intake Total 360 Output Total 600 Balance -240 - Medications Medications: Current Medications Acetaminophen (Tylenol 325mg Tab) 650 mg PO Q6H PRN PRN Reason: Pain, moderate (4-7) Last Admin: 09/06/16 08:37 Dose: 650 mg Metronidazole (Flagyl) 500 mg in 100 mls @ 100 mls/hr IVPB Q8 [facility] PRN Reason: Protocol Last Admin: 09/06/16 15:21 Dose: 100 mls/hr Ceftriaxone Sodium (Rocephin 1 Gram Ivpb) 1 gm in 100 mls @ 100 mls/hr IVPB DAILY [facility] PRN Reason: Protocol Last Admin: 09/06/16 13:31 Dose: 100 mls/hr Levetiracetam (Keppra 500mg Ivpb) 500 mg in 100 mls @ 300 mls/hr IV Q12 [facility] Last Admin: 09/06/16 10:21 Dose: 300 mls/hr Sodium Chloride (Sodium Chloride 0.9%) 1,000 mls @ 100 mls/hr IV .Q10H [facility] Last Admin: 09/06/16 05:03 Dose: 100 mls/hr Morphine Sulfate (Morphine) 0.5 mg IVP Q4H PRN PRN Reason: Pain, moderate (4-7) Last Admin: 09/06/16 15:29 Dose: 0.5 mg Ondansetron HCl (Zofran Inj) 4 mg IVP Q6H PRN PRN Reason: Nausea/Vomiting Last Admin: 09/06/16 08:38 Dose: 4 mg Pantoprazole Sodium (Protonix Inj) 40 mg IVP BID [facility] Last Admin: 09/06/16 10:21 Dose: 40 mg Polyethylene Glycol (Miralax) 17 gm PO BID [facility] Last Admin: 09/06/16 10:21 Dose: 17 gm - Labs Labs: 09/06/16 06:45 09/06/16 06:45 PT 11.2 Seconds (9.9-11.8) 09/05/16 00:45 INR 1.04 (0.93-1.08) 09/05/16 00:45 APTT 25.2 Seconds (23.7-30.8) 09/05/16 09:00 Attending/Attestation - Attestation I have personally seen and examined this patient.: Yes I have fully participated in the care of the patient.: Yes I have reviewed all pertinent clinical information, including history, physical exam and plan: Yes Notes (Text): 09/06/16 15:51 Attending note; Patient seen and examined with resident. Patient is a 41-year-old female admitted after a seizure episode and a fall. CT head is negative. Noncompliance with Keppra. Neurology evaluation appreciated. Continue Keppra. Need for medication compliance insisted. Abdominal pain; CT abdomen and pelvis left hemipelvic cyst. Transvaginal ultrasound ordered. No nausea and vomiting; continue Zofran. On clear liquid diet. GI evaluation appreciated. Advance as tolerated. Today patient is complaining of epigastric pain. Elevated lactic acid; post seizure. Follow-up lactic acid negative. Code sepsis protocol followed. ID evaluation appreciated. Possible discharge home tomorrow if tolerates diet. Upon discharge patient will follow-up with PMD Dr. Alvarenga. 09/06/16 15:54
--- NOTE | 2016-09-06 18:29 | CP.PCM.PN ---
Subjective - Date & Time of Evaluation Date of Evaluation: 09/06/16 Time of Evaluation: 11:15 - Subjective Subjective: Comfortable in bed, improved abdominal pain, not in distress, afebrile. Objective - Vital Signs/Intake and Output Vital Signs (last 24 hours): Temp Pulse Resp BP Pulse Ox 97.8 F 58 L 18 106/61 97 09/06/16 06:00 09/06/16 06:00 09/06/16 06:00 09/06/16 06:00 09/06/16 06:00 Intake and Output: 09/06/16 09/06/16 06:59 18:59 Intake Total 360 Output Total 600 Balance -240 - Medications Medications: Current Medications Acetaminophen (Tylenol 325mg Tab) 650 mg PO Q6H PRN PRN Reason: Pain, moderate (4-7) Last Admin: 09/06/16 08:37 Dose: 650 mg Metronidazole (Flagyl) 500 mg in 100 mls @ 100 mls/hr IVPB Q8 [facility] PRN Reason: Protocol Last Admin: 09/06/16 15:21 Dose: 100 mls/hr Ceftriaxone Sodium (Rocephin 1 Gram Ivpb) 1 gm in 100 mls @ 100 mls/hr IVPB DAILY [facility] PRN Reason: Protocol Last Admin: 09/06/16 13:31 Dose: 100 mls/hr Levetiracetam (Keppra 500mg Ivpb) 500 mg in 100 mls @ 300 mls/hr IV Q12 [facility] Last Admin: 09/06/16 10:21 Dose: 300 mls/hr Sodium Chloride (Sodium Chloride 0.9%) 1,000 mls @ 100 mls/hr IV .Q10H [facility] Last Admin: 09/06/16 16:57 Dose: Not Given Morphine Sulfate (Morphine) 0.5 mg IVP Q4H PRN PRN Reason: Pain, moderate (4-7) Last Admin: 09/06/16 15:29 Dose: 0.5 mg Ondansetron HCl (Zofran Inj) 4 mg IVP Q6H PRN PRN Reason: Nausea/Vomiting Last Admin: 09/06/16 08:38 Dose: 4 mg Pantoprazole Sodium (Protonix Inj) 40 mg IVP BID [facility] Last Admin: 09/06/16 17:53 Dose: 40 mg Polyethylene Glycol (Miralax) 17 gm PO BID [facility] Last Admin: 09/06/16 17:54 Dose: 17 gm - Labs Labs: 09/06/16 06:45 09/06/16 06:45 PT 11.2 Seconds (9.9-11.8) 09/05/16 00:45 INR 1.04 (0.93-1.08) 09/05/16 00:45 APTT 25.2 Seconds (23.7-30.8) 09/05/16 09:00 - Constitutional Appears: Non-toxic, No Acute Distress - Head Exam Head Exam: NORMAL INSPECTION - Respiratory Exam Respiratory Exam: Decreased Breath Sounds - Cardiovascular Exam Cardiovascular Exam: +S1, +S2 - GI/Abdominal Exam GI & Abdominal Exam: Soft. absent: Tenderness Assessment and Plan - Assessment and Plan (Free Text) Plan: Assessment Systemic Inflammatory Response Syndrome - no evidence of sepsis identified Nodular and enalrged uterus - probably uterine fibroids diverticulitis history of appendicitis S/P appendectomy asthma S/P abdominal surgery Plan blood and urine cx are negative, PCT is <0.05 - will d/c Rocepsamantha and Imani Would recommend OB-[employer] Worker evaluation for the uterus and pelvis Will continue to monitor clinically off antibiotics
--- NOTE | 2016-09-06 22:36 | CP.PCM.PN ---
Subjective - Date & Time of Evaluation Date of Evaluation: 09/06/16 Time of Evaluation: 20:00 - Subjective Subjective: Seen and examined at bedside. Had abdominal pain earlier today but better. Last pain medication was 3 pm, tolerating oral intake. No N/V. No complaints of overt GI bleeding. TRansvaginal US report fibroids and left ovarian cyst, fluid in cul de sac likely from ruptured cyst. Objective - Vital Signs/Intake and Output Vital Signs (last 24 hours): Temp Pulse Resp BP Pulse Ox 97.8 F 56 L 18 123/79 99 09/06/16 16:00 09/06/16 16:00 09/06/16 16:00 09/06/16 16:00 09/06/16 16:00 Intake and Output: 09/06/16 09/07/16 18:59 06:59 Intake Total 660 Balance 660 - Medications Medications: Current Medications Acetaminophen (Tylenol 325mg Tab) 650 mg PO Q6H PRN PRN Reason: Pain, moderate (4-7) Last Admin: 09/06/16 08:37 Dose: 650 mg Levetiracetam (Keppra 500mg Ivpb) 500 mg in 100 mls @ 300 mls/hr IV Q12 [facility] Last Admin: 09/06/16 10:21 Dose: 300 mls/hr Sodium Chloride (Sodium Chloride 0.9%) 1,000 mls @ 100 mls/hr IV .Q10H [facility] Last Admin: 09/06/16 20:53 Dose: 100 mls/hr Morphine Sulfate (Morphine) 0.5 mg IVP Q4H PRN PRN Reason: Pain, moderate (4-7) Last Admin: 09/06/16 15:29 Dose: 0.5 mg Ondansetron HCl (Zofran Inj) 4 mg IVP Q6H PRN PRN Reason: Nausea/Vomiting Last Admin: 09/06/16 08:38 Dose: 4 mg Pantoprazole Sodium (Protonix Inj) 40 mg IVP BID [facility] Last Admin: 09/06/16 17:53 Dose: 40 mg Polyethylene Glycol (Miralax) 17 gm PO BID [facility] Last Admin: 09/06/16 17:54 Dose: 17 gm - Labs Labs: 09/06/16 06:45 09/06/16 06:45 PT 11.2 Seconds (9.9-11.8) 09/05/16 00:45 INR 1.04 (0.93-1.08) 09/05/16 00:45 APTT 25.2 Seconds (23.7-30.8) 09/05/16 09:00 - Constitutional Appears: No Acute Distress - Head Exam Head Exam: NORMAL INSPECTION - Eye Exam Eye Exam: Normal appearance Pupil Exam: NORMAL ACCOMODATION Additional comments: anicteric - ENT Exam ENT Exam: Mucous Membranes Moist - Neck Exam Neck Exam: Normal Inspection - Respiratory Exam Respiratory Exam: Clear to Ausculation Bilateral, NORMAL BREATHING PATTERN - Cardiovascular Exam Cardiovascular Exam: +S1, +S2 Additional comments: non tender, no rebound or guarding. - GI/Abdominal Exam GI & Abdominal Exam: Soft, Normal Bowel Sounds - Extremities Exam Extremities Exam: Normal Capillary Refill, Normal Inspection - Neurological Exam Neurological Exam: Alert, Awake, Oriented x3 - Skin Skin Exam: Dry, Warm Assessment and Plan - Assessment and Plan (Free Text) Assessment: ASSESSMENT: Seizures, H/O lead poisoning as child Abdominal Pain Left Ovarian cyst rupture, see transvaginal report Uterine Fibroids S/P Code Sepsis Anemia PLAN: Diet advanced to Regular continue PPI Off antibiotics stool guiac on Keppra siezure precaution FU iron studies R D INTERNSHIP FU Seen and discussed with Dr. Cavazos.
[2016-09-07] MEDS: Sodium Chloride 0.9% 1,000 ML IV SCH (06:53)
[2016-09-07] MEDS ORDERED: Pantoprazole 40 mg EC Tab PO SCH (07:30)
[2016-09-07 07:39] LABS: ADD MANUAL DIFF? NO
[2016-09-07 07:48] LABS: BASO # 0.04 K/mm3 (0.0-2.0); BASO % 0.4 % (0.0-3.0); EOS # 0.3 (0.0-0.7); EOS % 2.9 % (1.5-5.0); GRAN # 4.87 (1.4-6.5); GRAN % 52.6 % (50.0-68.0); HEMATOCRIT 30.3 % (36.0-48.0); LYMPH # 3.3 (1.2-3.4); LYMPH % 35.1 % (22.0-35.0); MEAN CELL VOLUME 74.8 fL (80.0-105.0); MEAN CORPUSCULAR HEMOGLOBIN 23.5 pg (25.0-35.0); MEAN CORPUSCULAR HGB CONC 31.4 g/dl (31.0-37.0); MEAN PLATELET VOLUME 9.6 fl (7.0-11.0); MONO # 0.8 (0.1-0.6); PLATELET COUNT 315 10^3/uL (120.0-450.0); RED CELL DISTRIBUTION WIDTH 16.9 % (11.5-14.5); WHITE BLOOD COUNT 9.3 10^3/ul (4.5-11.0)
[2016-09-07 07:59] LABS: ALKALINE PHOSPHATASE 55 U/L (38-133); ALT/SGPT 61 U/L (7-56); AST/SGOT 36 U/L (15-39); BILIRUBIN,TOTAL 0.8 mg/dL (0.2-1.3); BLOOD UREA NITROGEN 4 mg/dL (7-21); CALCIUM 8.2 mg/dL (8.4-10.5); CARBON DIOXIDE 26 mmol/L (21-33); CHLORIDE 106 mmol/L (98-107); GFR AFRICAN-AMERICAN > 60; GLUCOSE,RANDOM 87 mg/dL (70-110); IRON 19 ug/dL (45-180); PHOSPHOROUS 2.9 mg/dL (2.5-4.5); POTASSIUM 3.5 mmol/L (3.6-5.0); SODIUM 138 mmol/L (132-148); TOTAL PROTEIN 6.7 g/dL (5.8-8.3)
[2016-09-07 08:52] VITALS: BP 114/68; PULSE 60; TEMP 98.1; O2SAT 95
[2016-09-07] MEDS ORDERED: Potassium Chloride 40 mEq/30 ml LIQ UD PO ONE (09:00)
[2016-09-07] MEDS: levETIRAcetam 500mg IVPB 500 MG/100 ML BAG IV SCH (09:16)
[2016-09-07] MEDS: POLYETHYLENE GLYCOL 3350 17 GM/Dose PACKET PO SCH (09:16)
--- NOTE | 2016-09-07 13:45 | CP.PCM.DIS ---
<Jose E Celestin - Last Filed: 09/07/16 13:32> Provider - Provider Date of Admission: 09/05/16 04:01 Attending physician: Bill Cole MD Consults: Neurology, ID, GI Time Spent in preparation of Discharge (in minutes): 45 Hospital Course - Lab Results Lab Results: Most Recent Lab Values WBC 9.3 10^3/ul (4.5-11.0) 09/07/16 07:00 RBC 4.05 10^6/uL (3.5-6.1) 09/07/16 07:00 Hgb 9.5 gm/dL (12.0-16.0) L 09/07/16 07:00 Hct 30.3 % (36.0-48.0) L 09/07/16 07:00 MCV 74.8 fL (80.0-105.0) L 09/07/16 07:00 MCH 23.5 pg (25.0-35.0) L 09/07/16 07:00 MCHC 31.4 g/dl (31.0-37.0) 09/07/16 07:00 RDW 16.9 % (11.5-14.5) H 09/07/16 07:00 Plt Count 315 10^3/uL (120.0-450.0) 09/07/16 07:00 MPV 9.6 fl (7.0-11.0) 09/07/16 07:00 Gran % 52.6 % (50.0-68.0) 09/07/16 07:00 Lymph % (Auto) 35.1 % (22.0-35.0) H 09/07/16 07:00 Burt % (Auto) 9.0 % (1.0-6.0) H 09/07/16 07:00 Eos % (Auto) 2.9 % (1.5-5.0) 09/07/16 07:00 Baso % (Auto) 0.4 % (0.0-3.0) 09/07/16 07:00 Gran # 4.87 (1.4-6.5) 09/07/16 07:00 Lymph # 3.3 (1.2-3.4) 09/07/16 07:00 Burt # 0.8 (0.1-0.6) H 09/07/16 07:00 Eos # 0.3 (0.0-0.7) 09/07/16 07:00 Baso # 0.04 K/mm3 (0.0-2.0) 09/07/16 07:00 PT 11.2 Seconds (9.9-11.8) 09/05/16 00:45 INR 1.04 (0.93-1.08) 09/05/16 00:45 APTT 25.2 Seconds (23.7-30.8) 09/05/16 09:00 pO2 45 mm/Hg (30-55) 09/05/16 04:15 VBG pH 7.24 (7.32-7.43) L 09/05/16 04:15 VBG pCO2 52.0 (40-60) 09/05/16 04:15 VBG HCO3 22.3 mmol/l (21-28) 09/05/16 04:15 VBG Total CO2 23.9 mmol.L (22-28) 09/05/16 04:15 VBG O2 Sat (Calc) 77.3 % (40-65) H 09/05/16 04:15 VBG Base Excess -5.5 mmol/L (0.0-2.0) L 09/05/16 04:15 VBG Potassium 3.5 mmol/L (3.6-5.2) L 09/05/16 04:15 Sodium 141.0 mmol/L (132-148) 09/05/16 04:15 Chloride 118.0 mmol/L (98-107) H 09/05/16 04:15 Glucose 131 mg/dl (65-105) H 09/05/16 04:15 Lactate 1.6 mmol/L (0.7-2.1) 09/05/16 04:15 FiO2 21.0 % 09/05/16 04:15 Sodium 138 mmol/L (132-148) 09/07/16 07:00 Potassium 3.5 mmol/L (3.6-5.0) L 09/07/16 07:00 Chloride 106 mmol/L (98-107) 09/07/16 07:00 Carbon Dioxide 26 mmol/L (21-33) 09/07/16 07:00 Anion Gap 10 (10-20) 09/07/16 07:00 BUN 4 mg/dL (7-21) L 09/07/16 07:00 Creatinine 0.7 mg/dL (0.5-1.4) 09/07/16 07:00 Est GFR ( Amer) > 60 09/07/16 07:00 Est GFR (Non-Af Amer) > 60 09/07/16 07:00 Random Glucose 87 mg/dL (70-110) 09/07/16 07:00 Calcium 8.2 mg/dL (8.4-10.5) L 09/07/16 07:00 Phosphorus 2.9 mg/dL (2.5-4.5) 09/07/16 07:00 Magnesium 2.0 mg/dL (1.7-2.2) 09/07/16 07:00 Iron 19 ug/dL (45-180) L 09/07/16 07:00 TIBC 333 ug/dL (265-497) 09/07/16 07:00 % Saturation 6 % (20-55) L 09/07/16 07:00 Transferrin 261.69 mg/dL (206-381) 09/05/16 09:00 Ferritin 6.3 ng/mL 09/07/16 07:00 Total Bilirubin 0.8 mg/dL (0.2-1.3) 09/07/16 07:00 AST 36 U/L (15-39) 09/07/16 07:00 ALT 61 U/L (7-56) H 09/07/16 07:00 Alkaline Phosphatase 55 U/L (38-133) 09/07/16 07:00 Lactate Dehydrogenase 532 U/L (333-699) 09/05/16 00:45 Total Creatine Kinase 126 U/L (35-230) 09/05/16 00:45 Troponin I < 0.01 ng/mL 09/05/16 00:45 Total Protein 6.7 g/dL (5.8-8.3) 09/07/16 07:00 Albumin 3.3 g/dL (3.0-4.8) 09/07/16 07:00 Globulin 3.4 gm/dL 09/07/16 07:00 Albumin/Globulin Ratio 1.0 (1.1-1.8) L 09/07/16 07:00 Amylase 88 U/L (35-125) 09/05/16 00:45 Lipase 98 U/L (23-300) 09/05/16 00:45 Procalcitonin < 0.05 NG/ML (0.19-0.49) L 09/05/16 00:45 Venous Blood Potassium 3.5 mmol/L (3.6-5.2) L 09/05/16 04:15 Urine Color Yellow (YELLOW) 09/05/16 02:30 Urine Appearance Cloudy (CLEAR) 09/05/16 02:30 Urine pH 8.0 (4.7-8.0) 09/05/16 02:30 Ur Specific [place] 1.020 (1.005-1.035) 09/05/16 02:30 Urine Protein Negative mg/dL (<30 mg/dL) 09/05/16 02:30 Urine Glucose (UA) Negative mg/dL (NEGATIVE) 09/05/16 02:30 Urine Ketones Trace mg/dL (NEGATIVE) H 09/05/16 02:30 Urine Blood Small (NEGATIVE) H 09/05/16 02:30 Urine Nitrate Negative (NEGATIVE) 09/05/16 02:30 Urine Bilirubin Negative (NEGATIVE) 09/05/16 02:30 Urine Urobilinogen 0.2 E.U./dL (<1 E.U./dL) 09/05/16 02:30 Ur Leukocyte Esterase Small Tim/uL (NEGATIVE) H 09/05/16 02:30 Urine RBC 1 - 3 /hpf (0-2) 09/05/16 02:30 Urine WBC 2 - 5 /hpf (0-6) 09/05/16 02:30 Ur Epithelial Cells 6 - 8 /hpf (0-5) 09/05/16 02:30 Urine Bacteria Many (NEG) 09/05/16 02:30 Urine Other Mucus 09/05/16 02:30 Vancomycin Trough < 5.0 ug/mL (5.0-10.0) L 09/06/16 10:25 - Hospital Course Hospital Course: 41 F female with a past medical history of 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 In the ED basic labwork was done. Pt was septic likely related to her seizure with WBC - 15.4 Initial lactate 3.3, repeat lactate 1.6, Afebrile, nontachycardic, normotensive. CXR showed no active dx. Head CT showed no active disease. Keppra 50mmg BID was started. She was started on fluids and antibiotics. Abd/Pelvis CT w/o po or Iv contrast showed left hemipelvic cyst. Pt was admitted for seizure and abdominal pain. She placed on seizure, fall, aspiration precautions. Neurology, ID and gastroeneterologist were consulted. Sepsis resolved - procalcitonin, lactate, and leukocytosis within normal range. Pt started to c/o abdominal pain. Transvaginal US showed no L ovarian cyct appreciated, free fluid in the cul de sac infers a very recent rupture of L ovarian cyst. Pt was also Iron deficient, Iron 29--> 19 - and with pmh of lead poisoning pt refused IV Iron repletion and stated that she will f/u her Iron results with her primary care physician and Shuttle Fitting Supervisor as an outpatient. Neurology team stated cont current management. Pt was told multiple time to avoid driving at all cost until she follows up with neurologist. Today she states that her abd pain is much better. Denies any nausea, or vomiting. Denies any headache, dizziness, n/v/d, f/c, sob, cp, abd pain, urinary or bm changes. Dx: Seizure / abdominal pain / rupture ovarian cyst Discharge Exam - Head Exam Head Exam: NORMAL INSPECTION - Eye Exam Eye Exam: EOMI, Normal appearance, PERRL - ENT Exam ENT Exam: Mucous Membranes Moist - Respiratory Exam Respiratory Exam: Clear to PA & Lateral. absent: Rales, Wheezes - Cardiovascular Exam Cardiovascular Exam: REGULAR RHYTHM, RRR, +S1, +S2 - GI/Abdominal Exam GI & Abdominal Exam: Soft. absent: Distended, Tenderness - Back Exam Back exam: NORMAL INSPECTION - Neurological Exam Neurological exam: Alert, Oriented x3 - Psychiatric Exam Psychiatric exam: Normal Affect, Normal Mood - Skin Skin Exam: Dry, Intact, Normal Color, Warm Discharge Plan - Discharge Medications Prescriptions: Doxycycline Hyclate 100 mg PO BID #14 capsule Levetiracetam [Keppra] 500 mg PO BID #60 tablet Famotidine [Pepcid] 40 mg PO DAILY #30 tab Cefpodoxime [Vantin] 200 mg PO BID #14 tab - Follow Up Plan Condition: GOOD Disposition: HOME/ ROUTINE Instructions: Acute Abdominal Pain (DC), Acute Abdominal Pain (GEN) Additional Instructions: Please AVOID DRIVING at all cost until you see your neurologist. Take your antibiotics as prescribed and follow up with your PUMPER GAGER doctor. Follow up on Iron studies with a ribbon hand. Please follow up with your primary care physician with in 1 week. Follow up with your neurologist, and gastroeneterologist. Take your medication as prescribed. Referrals: Sam Cheney MD [Staff Provider] - Noam Pena MD [Staff Provider] - Janie Hannon MD [Medical Doctor] - <Bill Cole - Last Filed: 09/07/16 16:53> Provider - Provider Date of Admission: 09/05/16 04:01 Attending physician: Bill Cole MD Hospital Course - Lab Results Lab Results: Most Recent Lab Values WBC 9.3 10^3/ul (4.5-11.0) 09/07/16 07:00 RBC 4.05 10^6/uL (3.5-6.1) 09/07/16 07:00 Hgb 9.5 gm/dL (12.0-16.0) L 09/07/16 07:00 Hct 30.3 % (36.0-48.0) L 09/07/16 07:00 MCV 74.8 fL (80.0-105.0) L 09/07/16 07:00 MCH 23.5 pg (25.0-35.0) L 09/07/16 07:00 MCHC 31.4 g/dl (31.0-37.0) 09/07/16 07:00 RDW 16.9 % (11.5-14.5) H 09/07/16 07:00 Plt Count 315 10^3/uL (120.0-450.0) 09/07/16 07:00 MPV 9.6 fl (7.0-11.0) 09/07/16 07:00 Gran % 52.6 % (50.0-68.0) 09/07/16 07:00 Lymph % (Auto) 35.1 % (22.0-35.0) H 09/07/16 07:00 Burt % (Auto) 9.0 % (1.0-6.0) H 09/07/16 07:00 Eos % (Auto) 2.9 % (1.5-5.0) 09/07/16 07:00 Baso % (Auto) 0.4 % (0.0-3.0) 09/07/16 07:00 Gran # 4.87 (1.4-6.5) 09/07/16 07:00 Lymph # 3.3 (1.2-3.4) 09/07/16 07:00 Burt # 0.8 (0.1-0.6) H 09/07/16 07:00 Eos # 0.3 (0.0-0.7) 09/07/16 07:00 Baso # 0.04 K/mm3 (0.0-2.0) 09/07/16 07:00 PT 11.2 Seconds (9.9-11.8) 09/05/16 00:45 INR 1.04 (0.93-1.08) 09/05/16 00:45 APTT 25.2 Seconds (23.7-30.8) 09/05/16 09:00 pO2 45 mm/Hg (30-55) 09/05/16 04:15 VBG pH 7.24 (7.32-7.43) L 09/05/16 04:15 VBG pCO2 52.0 (40-60) 09/05/16 04:15 VBG HCO3 22.3 mmol/l (21-28) 09/05/16 04:15 VBG Total CO2 23.9 mmol.L (22-28) 09/05/16 04:15 VBG O2 Sat (Calc) 77.3 % (40-65) H 09/05/16 04:15 VBG Base Excess -5.5 mmol/L (0.0-2.0) L 09/05/16 04:15 VBG Potassium 3.5 mmol/L (3.6-5.2) L 09/05/16 04:15 Sodium 141.0 mmol/L (132-148) 09/05/16 04:15 Chloride 118.0 mmol/L (98-107) H 09/05/16 04:15 Glucose 131 mg/dl (65-105) H 09/05/16 04:15 Lactate 1.6 mmol/L (0.7-2.1) 09/05/16 04:15 FiO2 21.0 % 09/05/16 04:15 Sodium 138 mmol/L (132-148) 09/07/16 07:00 Potassium 3.5 mmol/L (3.6-5.0) L 09/07/16 07:00 Chloride 106 mmol/L (98-107) 09/07/16 07:00 Carbon Dioxide 26 mmol/L (21-33) 09/07/16 07:00 Anion Gap 10 (10-20) 09/07/16 07:00 BUN 4 mg/dL (7-21) L 09/07/16 07:00 Creatinine 0.7 mg/dL (0.5-1.4) 09/07/16 07:00 Est GFR ( Amer) > 60 09/07/16 07:00 Est GFR (Non-Af Amer) > 60 09/07/16 07:00 Random Glucose 87 mg/dL (70-110) 09/07/16 07:00 Calcium 8.2 mg/dL (8.4-10.5) L 09/07/16 07:00 Phosphorus 2.9 mg/dL (2.5-4.5) 09/07/16 07:00 Magnesium 2.0 mg/dL (1.7-2.2) 09/07/16 07:00 Iron 19 ug/dL (45-180) L 09/07/16 07:00 TIBC 333 ug/dL (265-497) 09/07/16 07:00 % Saturation 6 % (20-55) L 09/07/16 07:00 Transferrin 261.69 mg/dL (206-381) 09/05/16 09:00 Ferritin 6.3 ng/mL 09/07/16 07:00 Total Bilirubin 0.8 mg/dL (0.2-1.3) 09/07/16 07:00 AST 36 U/L (15-39) 09/07/16 07:00 ALT 61 U/L (7-56) H 09/07/16 07:00 Alkaline Phosphatase 55 U/L (38-133) 09/07/16 07:00 Lactate Dehydrogenase 532 U/L (333-699) 09/05/16 00:45 Total Creatine Kinase 126 U/L (35-230) 09/05/16 00:45 Troponin I < 0.01 ng/mL 09/05/16 00:45 Total Protein 6.7 g/dL (5.8-8.3) 09/07/16 07:00 Albumin 3.3 g/dL (3.0-4.8) 09/07/16 07:00 Globulin 3.4 gm/dL 09/07/16 07:00 Albumin/Globulin Ratio 1.0 (1.1-1.8) L 09/07/16 07:00 Amylase 88 U/L (35-125) 09/05/16 00:45 Lipase 98 U/L (23-300) 09/05/16 00:45 Procalcitonin < 0.05 NG/ML (0.19-0.49) L 09/05/16 00:45 Venous Blood Potassium 3.5 mmol/L (3.6-5.2) L 09/05/16 04:15 Urine Color Yellow (YELLOW) 09/05/16 02:30 Urine Appearance Cloudy (CLEAR) 09/05/16 02:30 Urine pH 8.0 (4.7-8.0) 09/05/16 02:30 Ur Specific [place] 1.020 (1.005-1.035) 09/05/16 02:30 Urine Protein Negative mg/dL (<30 mg/dL) 09/05/16 02:30 Urine Glucose (UA) Negative mg/dL (NEGATIVE) 09/05/16 02:30 Urine Ketones Trace mg/dL (NEGATIVE) H 09/05/16 02:30 Urine Blood Small (NEGATIVE) H 09/05/16 02:30 Urine Nitrate Negative (NEGATIVE) 09/05/16 02:30 Urine Bilirubin Negative (NEGATIVE) 09/05/16 02:30 Urine Urobilinogen 0.2 E.U./dL (<1 E.U./dL) 09/05/16 02:30 Ur Leukocyte Esterase Small Tim/uL (NEGATIVE) H 09/05/16 02:30 Urine RBC 1 - 3 /hpf (0-2) 09/05/16 02:30 Urine WBC 2 - 5 /hpf (0-6) 09/05/16 02:30 Ur Epithelial Cells 6 - 8 /hpf (0-5) 05/02/17 02:30 Urine Bacteria Many (NEG) 09/05/16 02:30 Urine Other Mucus 09/05/16 02:30 Vancomycin Trough < 5.0 ug/mL (5.0-10.0) L 09/06/16 10:25 Attending/Attestation - Attestation I have personally seen and examined this patient.: Yes I have fully participated in the care of the patient.: Yes I have reviewed all pertinent clinical information, including history, physical exam and plan: Yes Notes (Text): 09/07/16 16:47 Attending note; Patient seen and examined with resident. Patient is a 41-year-old female admitted after a seizure episode and a fall. CT head is negative. Noncompliance with Keppra. Neurology evaluation appreciated. Continue Keppra. Need for medication compliance insisted. Abdominal pain; CT abdomen and pelvis left hemipelvic cyst. Transvaginal ultrasound showed free fluid in the cul-de-sac with the possibility of recently ruptured left ovarian cyst. No nausea and vomiting; resolved.tolerated diet well. GI evaluation appreciated. follow-up GI as outpatient for EGD. Elevated lactic acid; post seizure. Follow-up lactic acid negative. Code sepsis protocol followed. ID evaluation appreciated. possible STD. Discharged home with po vantin and doxycycline. Follow-up with Upon discharge patient will follow-up with PMD Dr. Alvarenga. diagnosis; seizure ovarian cyst anemia
--- NOTE | 2016-09-07 15:17 | PN ---
DATE: 09/07/2016 The patient is in bed, in no acute distress, was seen earlier in [facility], bed 1. No fevers and chills. PHYSICAL EXAMINATION: VITAL SIGNS: Temperature is 98, blood pressure is 105/70, respiratory rate of 16. HEENT: Unremarkable. NECK: Supple. LUNGS: Have decreased breath sounds. HEART: Normal S1, S2. ABDOMEN: Soft, nontender. LABORATORY EXAMINATION: Reveals a white count of 9.3, hemoglobin of 9, platelets of 315. BUN of 4, creatinine of 0.7 and procalcitonin is less than 0.05. The urinalysis is noted. Toxicology is noted . Microbiology reveals the blood cultures and urine cultures are negative. Review of orders reveals the patient to be off of antibiotics. Microbiology is noted. dis charge order is reviewed. Genevieve Dawson's note is reviewed. ASSESSMENT AND PLAN: A 41-year-old female with systemic inflammatory response, nodular enlarged uter us, history of diverticulitis. The patient is sexually active, 1 partner. She does not know if he h as other partners and not always protected sex. Would work up for sexually transmitted diseases and treat for such with gonorrhea, chlamydia and would do gonorrhea workup and chlamydia workup and sexua lly transmitted disease workup and human immunodeficiency virus and rapid plasma reagin and treat the patient with doxycycline. The patient has already received ceftriaxone therapy. Would complete wit h doxycycline and Vantin as outpatient and SEXUAL ABUSE COUNSELLOR followup. The patient is clinically improved and with sexually transmitted disease workup. Case discussed with in detail and his poker supervisor. Sam Cheney MD cc: [id number] TT: 09/07/2016 15:16:35 Confirmation # [id number] Dictation # [id number] en
--- NOTE | 2016-09-07 16:27 | PN ---
DATE: 09/07/2016 Seen and examined at the bedside earlier today. Denies any nausea, vomiting, or abdominal pain. She is tolerating her oral intake and is moving her bowels. No diarrhea or bleeding reported. No acute overnight events were reported. VITAL SIGNS: Temperature 98.1, blood pressure 114/68, pulse 60, respirations 18, 95 on room air. LABORATORY DATA: WBC is 9.3, H and H is 9.5 and hematocrit is 30.3, platelets are 315. Her sodium i s 138, K is 3.5, BUN is 4, creatinine is 0.7, total bilirubin is 0.8, AST 36, ALT 61, alkaline phosph atase is 55. Her iron is 19, TIBC is 33, and percent saturation is 6. PHYSICAL EXAMINATION: HEENT: Sclera is anicteric. NECK: Supple. CARDIAC: S1, S2. LUNGS: Clear. ABDOMEN: With bowel sounds, soft, nontender. No rebound, guarding, or organomegaly. EXTREMITIES: Lower extremities, no edema. 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 Came to emergency for evaluation of status post seizure and fall. The patient was with leukocytosis, status post code sepsis. The patient also had complained of abdominal pain. The patie nt status post transvaginal ultrasound, looks like has left ovarian cyst rupture, uterine fibroids an d anemia. PLAN: The patient is on Keppra. Likely, the patient is going to be discharged home. Discussed with Dr. Cole. The patient would likely benefit from a GI workup in view of anemia and her previous complaint of abdominal pain. We will refer to GI clinic. Can refer to GI clinic in [facility]. [facility] sed with Dr. Cole. The patient was seen and case discussed with Dr. Hannon. Genevieve Lovelles LAWRENCE cc: [id number] TT: 09/07/2016 16:26:56 Confirmation # [id number] Dictation # [id number] sn
--- NOTE | 2016-09-11 17:52 | EEG ---
DATE: 09/06/2016 STUDY PERFORMED: EEG. CHIEF COMPLAINT: Seizures. MEDICATIONS: Morphine, Keppra, Dilaudid. INTERPRETATION: This is a 16-channel international recording. The background activity of this fany ng was composed of 6-7 cycles per second. There was a small amount of beta activity of 16-20 cycles per second seen in this recording. There was increased amount of theta activity 5-7 cycles per secon d seen in this tracing. Drowsiness was characterized by mixed beta and theta activities. Sleep was characterized by vertex transient waves, sleep spindles and bilateral slowing. Photic stimulation sh owed no change in tracing. No paroxysmal activity was noted in this recording. CONCLUSION: Abnormal electroencephalogram due to presence of diffuse slowing throughout consistent w ith bilateral cerebral dysfunction. Please clinically correlate. No evidence of any epileptiform ac tivity. Keshawn Pena MD cc: [id number] TT: 09/11/2016 17:52:08 Confirmation # [id number] Dictation # [id number] ln
== END 2016-09-07 17:30 | disposition home or self-care (01) | DRG 532 ==
LOC: ED 00:37 → ERH 04:01 → 3RSO 06:03
PROVIDERS: ADMIT Internal Medicine; ATTEND Internal Medicine
DX: R56.9 Unspecified convulsions (principal); Z91.14 Patient's other noncompliance with medication regimen; R65.10 Systemic inflammatory response syndrome (SIRS) of non-infectious origin without acute organ dysfunction; E87.6 Hypokalemia; D64.9 Anemia, unspecified; N83.202 Unspecified ovarian cyst, left side; J45.909 Unspecified asthma, uncomplicated; K21.9 Gastro-esophageal reflux disease without esophagitis; E83.39 Other disorders of phosphorus metabolism; E61.1 Iron deficiency; K59.00 Constipation, unspecified; D25.9 Leiomyoma of uterus, unspecified; K57.92 Diverticulitis of intestine, part unspecified, without perforation or abscess without bleeding; Z87.19 Personal history of other diseases of the digestive system; Z90.49 Acquired absence of other specified parts of digestive tract; Z87.891 Personal history of nicotine dependence; Z82.49 Family history of ischemic heart disease and other diseases of the circulatory system; Z83.3 Family history of diabetes mellitus; Z82.5 Family history of asthma and other chronic lower respiratory diseases

== ENCOUNTER 2016-12-23 11:18 | Emergency (ER) | payer MEDICAID ==
[2016-12-23 11:18] VITALS: BMI 24.5
[2016-12-23] MEDS ORDERED: levETIRAcetam 500mg IVPB 500 MG/100 ML BAG IV STA (11:39)
[2016-12-23] MEDS ORDERED: Famotidine 20mg/50ml 20 MG/50 ML BAG IVPB STA (11:39)
--- NOTE | 2016-12-23 11:42 | ED PDOC ---
Arrival/HPI - General Time Seen by Provider: 12/23/16 11:19 Historian: Patient - History of Present Illness Narrative History of Present Illness (Text): 12/23/16 11:34 A 41 year old female, whose past medical history includes seizure disorder on Keppra 500mg BID, was brought into the emergency department by EMS after a seizure at home prior to arrival. Patient reports she is not always compliant with her medication and states she forgot to take it yesterday. Patient notes urinary incontinence and denies any head trauma or tongue biting. She is unable to recall any further details. Patient notes worsening abdominal and back pain for 3 days and one episode of non-bilious non-bloody vomiting today. Patient denies any fever, chills, urinary symptoms, chest pain, shortness of breath or any other complaints. Time/Duration: Prior to Arrival Quality: Other Context: Home Past Medical History - Provider Review Nursing Documentation Reviewed: Yes - Infectious Disease Hx of Infectious Diseases: None - Tetanus Immunization Tetanus Immunization: Unknown - Cardiac Hx Cardiac Disorders: No - Pulmonary Hx Asthma: Yes (as a child) - Neurological Hx Seizures: Yes (keppra daily) - HEENT Hx HEENT Disorder: No - Renal Hx Renal Disorder: No - Hematological/Oncological Hx Blood Disorders: Yes Other/Comment: lead poisoning as a child - Integumentary Hx Dermatological Disorder: No - Musculoskeletal/Rheumatological Hx Falls: No - Gastrointestinal Hx Gastrointestinal Disorders: Yes Hx Diverticulitis: Yes - Genitourinary/Gynecological Hx Genitourinary Disorders: No - Psychiatric Hx Depression: No Hx Emotional Abuse: No Hx Physical Abuse: No Hx Substance Use: No - Surgical History Hx Appendectomy: Yes Other/Comment: ovarian cysts removed - Anesthesia Hx Anesthesia: Yes Hx Anesthesia Reactions: No - Suicidal Assessment Feels Threatened In Home Enviroment: No Family/Social History - Physician Review Nursing Documentation Reviewed: Yes Family/Social History: No Known Family HX Smoking Status: Former Smoker Hx Alcohol Use: Yes Hx Substance Use: No Hx Substance Use Treatment: No Allergies/Home Meds Allergies/Adverse Reactions: Allergies No Known Allergies Allergy (Verified 09/05/16 00:51) Review of Systems - Physician Review All systems were reviewed & negative as marked: Yes - Review of Systems Constitutional: absent: Fevers, Night Sweats Respiratory: absent: SOB Cardiovascular: absent: Chest Pain Gastrointestinal: Abdominal Pain, Vomiting Genitourinary Female: absent: Dysuria, Frequency, Hematuria, Urine Output Changes Musculoskeletal: Back Pain Neurological: Seizure Physical Exam Vital Signs Temp Pulse Resp BP Pulse Ox 12/23/16 14:52 98.1 F 81 20 112/73 98 12/23/16 11:18 98.1 F 72 20 110/70 99 Appearance: Positive for: Well-Appearing, Non-Toxic, Comfortable Pain Distress: None Mental Status: Positive for: Alert and Oriented X 3 - Systems Exam Head: Present: Atraumatic, Normocephalic Pupils: Present: PERRL Extroacular Muscles: Present: EOMI Conjunctiva: Present: Normal Mouth: Present: Moist Mucous Membranes Pharnyx: No: ERYTHEMA, EXUDATE, TONSILS ENLARGED Neck: Present: Normal Range of Motion Respiratory/Chest: Present: Clear to Auscultation, Good Air Exchange. No: Respiratory Distress, Accessory Muscle Use Cardiovascular: Present: Regular Rate and Rhythm, Normal S1, S2. No: Murmurs Abdomen: Present: Normal Bowel Sounds. No: Tenderness, Distention, Peritoneal Signs Back: Present: Normal Inspection Upper Extremity: Present: Normal Inspection. No: Cyanosis, Edema Lower Extremity: Present: Normal Inspection. No: Edema Neurological: Present: GCS=15, CN II-XII Intact, Speech Normal, Motor Func Grossly Intact, Normal Sensory Function, Normal Cerebellar Funct Skin: Present: Warm, Dry, Normal Color. No: Rashes Psychiatric: Present: Alert, Oriented x 3, Normal Insight, Normal Concentration Medical Decision Making ED Course and Treatment: 12/23/16 11:34 Impression: A 41 year old female brought in after seizure. Patient is not compliant with her medication. She reports worsening abdominal and back pain for 3 days. Differential Diagnosis included but are not limited to: Seizure Plan: -- Head CT -- EKG -- Labs -- Urine culture and Urinalysis -- Tylenol, Flexeril, Keppra and Pepcid -- Reassess and disposition Progress Notes: EKG shows NSR at [address]-segment elevations, normal intervals, normal axis. Interpreted by me. 12/23/16 14:40 Patient refusing to get a head CT done since she has had so many performed already. She reports her seizure was witnessed by her children, both in their 20 's, who report she did not injury herself. On re-evaluation, patient feels better and is in no acute distress. She is able to tolerated PO fluids. No seizures in the ED. Patient states her abdominal and back pain have fully resolved. She says whenever she gets pain she sometimes gets a seizure, especially when she hasn't taken her meds. On exam, non-tender. Patient was instructed to follow up with neurologist Dr. Pena and continue taking Keppra or return if symptoms worsen or new concerning symptoms arise. - Lab Interpretations Lab Results: 12/23/16 11:50 12/23/16 11:50 Lab Results 12/23/16 13:24: Urine Opiates Screen Negative, Urine Methadone Screen Negative, Ur Barbiturates Screen Negative, Ur Phencyclidine Scrn Negative, Ur Amphetamines Screen Negative, U Benzodiazepines Scrn Negative, U Oth Cocaine Metabols Negative, U Cannabinoids Screen Negative 12/23/16 12:24: POC Glucose (mg/dL) 107 12/23/16 11:51: Urine Color Yellow, Urine Appearance Clear, Urine pH 6.0, Ur Specific [place] 1.010, Urine Protein Trace H, Urine Glucose (UA) Negative, Urine Ketones Negative, Urine Blood Small H, Urine Nitrate Negative, Urine Bilirubin Negative, Urine Urobilinogen 0.2, Ur Leukocyte Esterase Negative, Urine RBC 0 - 2, Urine WBC Negative, Ur Epithelial Cells 0 - 2, Urine Bacteria Neg 12/23/16 11:50: Alcohol, Quantitative < 10 12/23/16 11:50: Sodium 140, Potassium 3.9, Chloride 108 H, Carbon Dioxide 19 L, Anion Gap 17, BUN 14, Creatinine 0.6, Est GFR ( Amer) > 60, Est GFR (Non- Af Amer) > 60, Random Glucose 111 H, Calcium 9.3, Total Bilirubin 0.3, AST 23, ALT 24, Alkaline Phosphatase 66, Total Creatine Kinase 88, Total Protein 8.1, Albumin 4.4, Globulin 3.6, Albumin/Globulin Ratio 1.2 12/23/16 11:50: WBC 11.1 H, RBC 4.88, Hgb 11.2 L, Hct 35.5 L, MCV 72.7 L, MCH 23.0 L, MCHC 31.5, RDW 17.3 H, Plt Count 303, MPV 10.1, Gran % 83.2 H, Lymph % ( Auto) 11.9 L, [place] % (Auto) 4.2, Eos % (Auto) 0.4 L, Baso % (Auto) 0.3, Gran # 9.25 H, Lymph # 1.3, [place] # 0.5, Eos # 0.1, Baso # 0.03 I have reviewed the lab results: Yes - Medication Orders Current Medication Orders: Discontinued Medications Acetaminophen (Tylenol 325mg Tab) 650 mg PO STAT STA Stop: 12/23/16 11:41 Last Admin: 12/23/16 11:52 Dose: 650 mg Cyclobenzaprine HCl (Flexeril) 10 mg PO STAT STA Stop: 12/23/16 11:41 Last Admin: 12/23/16 11:51 Dose: 10 mg Levetiracetam (Keppra 500mg Ivpb) 500 mg in 100 mls @ 400 mls/hr IV STAT STA Stop: 12/23/16 11:53 Last Admin: 12/23/16 12:14 Dose: 400 mls/hr Famotidine (Pepcid 20mg/50ml Premix) 20 mg in 50 mls @ 100 mls/hr IVPB STAT STA Stop: 12/23/16 12:08 Last Admin: 12/23/16 11:53 Dose: 100 mls/hr Sodium Chloride (Sodium Chloride 0.9%) 1,000 mls @ 999 mls/hr IV .Q1H1M STA Stop: 12/23/16 13:53 Last Admin: 12/23/16 13:17 Dose: 999 mls/hr Ondansetron HCl (Zofran Inj) 4 mg IVP STAT STA Stop: 12/23/16 11:59 Last Admin: 12/23/16 12:01 Dose: 4 mg Ondansetron HCl (Zofran Inj) Confirm Administered Dose 4 mg .ROUTE .STK-MED ONE Stop: 12/23/16 12:02 - Scribe Statement The provider has reviewed the documentation as recorded by the Aimee Lambert Provider Scribe Attestation: All medical record entries made by the Scribe were at my direction and personally dictated by me. I have reviewed the chart and agree that the record accurately reflects my personal performance of the history, physical exam, medical decision making, and the department course for this patient. I have also personally directed, reviewed, and agree with the discharge instructions and disposition. Disposition/Present on Arrival - Present on Arrival Any Indicators Present on Arrival: No History of DVT/PE: No History of Uncontrolled Diabetes: No Urinary Catheter: No History Surgical Site Infection Following: None - Disposition Have Diagnosis and Disposition been Completed?: Yes Diagnosis: Seizure, Abdominal pain Disposition: HOME/ ROUTINE Disposition Time: 14:40 Patient Plan: Discharge Patient Problems: Current Active Problems Problem Status Onset Abdominal pain Acute Seizure Acute Condition: IMPROVED Discharge Instructions (ExitCare): Epilepsy (ED), Abdominal Pain (ED) Additional Instructions: Ms Little, thank you for letting us take care of you today. Your provider was Dr. Scott You were treated for Seizure, Abdominal Pain The emergency medical care you received today was directed at your acute symptoms. If you were prescribed any medication, please fill it and take as directed. It may take several days for your symptoms to resolve. Return to the Emergency Department if your symptoms worsen, do not improve, or if you have any other problems. Please contact your doctor or call one of the physicians/clinics you have been referred to that are listed on the Patient Visit Information form that is included in your discharge packet. Bring any paperwork you were given at discharge with you along with any medications you are taking to your follow up visit. Our treatment cannot replace ongoing medical care by a primary care provider (PCP) outside of the emergency department. Thank you for allowing the [facility] [employer] team to be part of your care today. If you had an X-Ray or CT scan: A Radiologist will review the ED reading if any change in treatment is needed we will contact you. If you had a blood, urine, or wound culture: It will take several days for the results, if any change in treatment is needed we will contact you. If you had an STI test: It will take 48 hours for the results. Please call after 1 week if you have not heard back. Prescriptions: Ondansetron ODT [Zofran ODT] 4 mg PO Q6 #14 odt Ranitidine HCl [Zantac] 150 mg PO BID PRN #30 tablet PRN Reason: Pain, Mild (1-3) Referrals: Jose Kimbrough, [Family Provider] - Follow up with primary Keshawn Pena MD [Staff Provider] - Follow up with primary Forms: [employer] (Latvian)
[2016-12-23 11:56] LABS: BASO # 0.03 K/mm3 (0.0-2.0); BASO % 0.3 % (0.0-3.0); EOS # 0.1 (0.0-0.7); EOS % 0.4 % (1.5-5.0); GRAN # 9.25 (1.4-6.5); GRAN % 83.2 % (50.0-68.0); HEMATOCRIT 35.5 % (36.0-48.0); LYMPH # 1.3 (1.2-3.4); LYMPH % 11.9 % (22.0-35.0); MEAN CELL VOLUME 72.7 fl (80.0-105.0); MEAN CORPUSCULAR HGB CONC 31.5 g/dl (31.0-37.0); MEAN PLATELET VOLUME 10.1 fl (7.0-11.0); MONO # 0.5 (0.1-0.6); MONO % 4.2 % (1.0-6.0); RED CELL DISTRIBUTION WIDTH 17.3 % (11.5-14.5); WHITE BLOOD COUNT 11.1 10^3/ul (4.5-11.0)
[2016-12-23 11:57] LABS: URINE BILIRUBIN NEGATIVE (NEGATIVE); URINE BLOOD SMALL (NEGATIVE); URINE GLUCOSE (UA) NEGATIVE (NEGATIVE); URINE KETONE NEGATIVE (NEGATIVE); URINE LEUKOCYTE ESTERASE NEGATIVE Leu/uL (NEGATIVE); URINE PROTEIN TRACE mg/dL (<30 mg/dL); URINE UROBILINOGEN 0.2 E.U./dL (<1 E.U./dL)
[2016-12-23 12:04] LABS: URINE APPEARANCE CLEAR (CLEAR); URINE COLOR YELLOW (YELLOW)
[2016-12-23 12:06] LABS: URINE BACTERIA NEG (NEG); URINE EPITHELIAL CELLS 0 - 2 /hpf (0-5); URINE RBC 0 - 2 /hpf (0-2); URINE WBC NEGATIVE /hpf (0-6)
[2016-12-23 12:25] LABS: ALB/GLOB RATIO 1.2 (1.1-1.8); ALKALINE PHOSPHATASE 66 U/L (38-133); ALT/SGPT 24 U/L (7-56); AST/SGOT 23 U/L (15-39); BILIRUBIN,TOTAL 0.3 mg/dL (0.2-1.3); BLOOD UREA NITROGEN 14 mg/dL (7-21); CALCIUM 9.3 mg/dL (8.4-10.5); CARBON DIOXIDE 19 mmol/L (21-33); CHLORIDE 108 mmol/L (98-107); GFR AFRICAN-AMERICAN > 60; GLUCOSE,RANDOM 111 mg/dL (70-110); POTASSIUM 3.9 mmol/L (3.6-5.0); SODIUM 140 mmol/L (132-148); TOTAL PROTEIN 8.1 g/dL (5.8-8.3)
[2016-12-23] MEDS ORDERED: Sodium Chloride 0.9% 1,000 ML IV STA (12:53)
--- NOTE | 2016-12-23 13:14 | CARD ---
APPROVED REPORT EKG Measurement Heart [id number] <Conclusion> Normal sinus rhythm Normal ECG
[2016-12-23 14:52] VITALS: RESP 20; TEMP 98.1
[2016-12-23 14:53] VITALS: BP 112/73; PULSE 81; O2SAT 98
== END 2016-12-23 15:18 | disposition home or self-care (01) ==
LOC: ED 11:18
DX: R56.9 Unspecified convulsions (principal); R10.9 Unspecified abdominal pain
CPT/HCPCS: 80053; 80320; 80324; 80345; 80346; 80349; 80353; 80358; 80361; 81001; 82550; 82948; 83992; 85025; 87086; 93005; 96365; 96375; 99285; J1953; J2405; J7040

== ENCOUNTER 2017-12-15 20:40 | Observation (INO) | payer MEDICAID ==
[2017-12-15 20:48] VITALS: BMI 26.0
--- NOTE | 2017-12-15 21:11 | ED PDOC ---
Arrival/HPI - General Chief Complaint: Seizure Time Seen by Provider: 12/15/17 20:42 Historian: Patient, Family - History of Present Illness Narrative History of Present Illness (Text): 12/15/17 21:11 Felisa Little is a 42 year old female, whose past medial history includes seizure disorder, diverticulitis, and asthma, who presents to the Emergency department brought in by EMS accompanied by son status post multiple seizures today. Son states patient had 3 witnessed seizure episodes at home prior to arrival while lying down in bed. Son states patient's last seizure was 3 month prior and patient reports she was on Keppra 500mg but stopped taking it "a while ago." Son states patient was unconscious during the seizure episodes and denies any urinary/bowel incontinence, head trauma, or tongue-biting. Patient now complaining of a headache and right thigh discomfort. Patient denies any fever, chills, chest pain, shortness of breath, back pain, or any other complaints. Time/Duration: Prior to Arrival Symptom Onset: Sudden Symptom Course: Unchanged Activities at Onset: Light Context: Home Past Medical History - Provider Review Nursing Documentation Reviewed: Yes - Infectious Disease Hx of Infectious Diseases: None - Tetanus Immunization Tetanus Immunization: Unknown - Cardiac Hx Cardiac Disorders: No - Pulmonary Hx Asthma: Yes (as a child) - Neurological Hx Seizures: Yes (keppra daily) - HEENT Hx HEENT Disorder: No - Renal Hx Renal Disorder: No - Hematological/Oncological Hx Blood Disorders: Yes Other/Comment: lead poisoning as a child - Integumentary Hx Dermatological Disorder: No - Musculoskeletal/Rheumatological Hx Falls: No - Gastrointestinal Hx Gastrointestinal Disorders: Yes Hx Diverticulitis: Yes - Genitourinary/Gynecological Hx Genitourinary Disorders: No - Psychiatric Hx Depression: No Hx Emotional Abuse: No Hx Physical Abuse: No Hx Substance Use: No - Surgical History Hx Appendectomy: Yes Other/Comment: ovarian cysts removed - Anesthesia Hx Anesthesia: Yes Hx Anesthesia Reactions: No - Suicidal Assessment Feels Threatened In Home Enviroment: No Family/Social History - Physician Review Nursing Documentation Reviewed: Yes Family/Social History: Unknown Family HX Smoking Status: Former Smoker Hx Alcohol Use: Yes Hx Substance Use: No Hx Substance Use Treatment: No Allergies/Home Meds Allergies/Adverse Reactions: Allergies No Known Allergies Allergy (Verified 12/15/17 20:44) Review of Systems - Physician Review All systems were reviewed & negative as marked: Yes - Review of Systems Constitutional: Normal. absent: Fevers Eyes: Normal ENT: Normal Respiratory: Normal. absent: SOB, Cough Cardiovascular: Normal. absent: Chest Pain Gastrointestinal: Normal. absent: Abdominal Pain, Diarrhea, Nausea, Vomiting Genitourinary Female: Normal. absent: Dysuria, Frequency, Urine Output Changes Musculoskeletal: Normal. absent: Back Pain, Neck Pain Skin: Normal. absent: Rash Neurological: Headache, Seizure Endocrine: Normal Hemo/Lymphatic: Normal Psychiatric: Normal Physical Exam Vital Signs Reviewed: Yes Vital Signs Temp Pulse Resp BP Pulse Ox 12/15/17 21:03 98.5 F 70 16 98/71 L 98 Temperature: Afebrile Blood Pressure: Normal Pulse: Regular Respiratory Rate: Normal Appearance: Positive for: Well-Appearing, Non-Toxic, Comfortable Pain Distress: None Mental Status: Positive for: Alert and Oriented X 3 - Systems Exam Head: Present: Atraumatic, Normocephalic Pupils: Present: PERRL Extroacular Muscles: Present: EOMI Conjunctiva: Present: Normal Mouth: Present: Moist Mucous Membranes Neck: Present: Normal Range of Motion. No: Meningeal Signs, MIDLINE TENDERNESS , Paraspinal Tenderness Respiratory/Chest: Present: Clear to Auscultation, Good Air Exchange. No: Respiratory Distress, Accessory Muscle Use Cardiovascular: Present: Regular Rate and Rhythm, Normal S1, S2. No: Murmurs Abdomen: No: Tenderness, Distention, Peritoneal Signs Back: Present: Normal Inspection. No: CVA Tenderness, Midline Tenderness, Paraspinal Tenderness Upper Extremity: Present: Normal Inspection. No: Cyanosis, Edema Lower Extremity: Present: Normal Inspection. No: Edema Neurological: Present: GCS=15, CN II-XII Intact, Speech Normal, Motor Func Grossly Intact, Normal Sensory Function, Normal Cerebellar Funct Skin: Present: Warm, Dry, Normal Color. No: Rashes Psychiatric: Present: Alert, Oriented x 3, Normal Insight, Normal Concentration Medical Decision Making ED Course and Treatment: 12/15/17 21:11 Impression: 42 year old female brought in by EMS s/p 3 seizure episodes. Plan: -- CT Head w/o contrast -- EKG -- Chest X-ray -- Labs, cardiac enzymes -- Keppra -- Reassess and disposition Prior Visits: Notes and results from previous visits were reviewed. On 12/23/2016, pt was seen in the Emergency department status post seizure. Pt was d/c home. Progress Notes: 12/15/17 22:48 Reviewed EKG, sinus bradycardia at [address]-segment elevations or depressions, no T-wave inversions, normal intervals. 12/15/17 22:53 Chest X-ray reviewed, shows no acute processes. 12/15/17 22:59 Case discussed with medical management specialist substation engineer, who is aware and agrees with plan. 12/15/17 23:[address] Anderson, who is aware and agrees with plan. Accepts pt in to hospitalist service. Pt will go to Telemetry observation for recurrent seizures. 12/15/17 23:46 CT Head reviewed, shows: Brain: No intracranial hemorrhage. No mass. No definite edema. Ventricles: No hydrocephalus. Bones/joints: No acute fracture. Soft tissues: Unremarkable. Sinuses: Minimal partial opacification of RIGHT ethmoid sinus. Mastoid air cells: No significant effusion. Orbits: Unremarkable as visualized. IMPRESSION: 1. No definite acute intracranial abnormality. 2. Incidental/non-acute findings are described above. - Lab Interpretations Lab Results: 12/15/17 21:55 12/15/17 21:55 Lab Results 12/15/17 21:55: WBC 11.0, RBC 4.74, Hgb 11.2 L, Hct 35.9 L, MCV 75.7 L D, MCH 23.6 L, MCHC 31.2, RDW 16.9 H, Plt Count 368, MPV 9.8 12/15/17 21:55: Sodium 143, Potassium 4.0, Chloride 104, Carbon Dioxide 26, Anion Gap 16, BUN 15, Creatinine 0.9, Est GFR ( Amer) > 60, Est GFR (Non- Af Amer) > 60, Random Glucose 85, Calcium 9.4, Phosphorus 3.2, Magnesium 2.1, Total Bilirubin 0.4, AST 24, ALT 22, Alkaline Phosphatase 58, Lactate Dehydrogenase 454, Total Creatine Kinase 85, Troponin I < 0.01, Total Protein 8.1, Albumin 4.6, Globulin 3.5, Albumin/Globulin Ratio 1.3 I have reviewed the lab results: Yes - RAD Interpretation Radiology Orders: 12/15/17 21:14 CHEST PORTABLE [RAD] Stat 12/15/17 21:15 HEAD W/O CONTRAST [CT] Stat Hospitality Director: ED Physician, Radiologist - EKG Interpretation Interpreted by ED Physician: Yes Type: 12 lead EKG - Medication Orders Current Medication Orders: Discontinued Medications Levetiracetam 500 mg/ Sodium (Chloride) 105 mls @ 440 mls/hr IV ONCE ONE Stop: 12/15/17 21:31 Last Admin: 12/15/17 22:00 Dose: 440 mls/hr eMAR Start Stop Document 12/15/17 22:00 RG (Rec: 12/15/17 22:06 RG [id number]) Intravenous Solution Start Date 12/15/17 Start Time 22:00 - Scribe Statement The provider has reviewed the documentation as recorded by the Scribjanuary Cameron All medical record entries made by the Scribe were at my direction and personally dictated by me. I have reviewed the chart and agree that the record accurately reflects my personal performance of the history, physical exam, medical decision making, and the department course for this patient. I have also personally directed, reviewed, and agree with the discharge instructions and disposition. Disposition/Present on Arrival - Present on Arrival Any Indicators Present on Arrival: No History of DVT/PE: No History of Uncontrolled Diabetes: No Urinary Catheter: No History of Decub. Ulcer: No History Surgical Site Infection Following: None - Disposition Have Diagnosis and Disposition been Completed?: Yes Diagnosis: Recurrent seizures Disposition: HOSPITALIZED Disposition Time: 23:24 Patient Plan: Observation Patient Problems: Current Active Problems Problem Status Onset Recurrent seizures Acute Condition: STABLE Referrals: Darian Velasquez MD [Primary Care Provider] - Follow up with primary Forms: [employer] ([place]an)
[2017-12-15] MEDS ORDERED: levETIRAcetam 500 MG in Sodium Chloride 0.9% 100 ML IV ONE (21:17)
[2017-12-15 22:11] LABS: HEMOGLOBIN 11.2 g/dL (12.0-16.0); MEAN CELL VOLUME 75.7 fl (80.0-105.0); MEAN CORPUSCULAR HEMOGLOBIN 23.6 pg (25.0-35.0); MEAN CORPUSCULAR HGB CONC 31.2 g/dl (31.0-37.0); MEAN PLATELET VOLUME 9.8 fl (7.0-11.0); RBC 4.74 10^6/uL (3.5-6.1); RED CELL DISTRIBUTION WIDTH 16.9 % (11.5-14.5)
[2017-12-15 22:24] LABS: ALB/GLOB RATIO 1.3 (1.1-1.8); ALBUMIN 4.6 g/dL (3.0-4.8); ALT/SGPT 22 U/L (7-56); AST/SGOT 24 U/L (14-36); BLOOD UREA NITROGEN 15 mg/dL (7-21); CALCIUM 9.4 mg/dL (8.4-10.5); GFR AFRICAN-AMERICAN > 60; GFR NON-AFRICAN AMERICAN > 60
[2017-12-15 22:34] LABS: TROPONIN I < 0.01 ng/mL
--- NOTE | 2017-12-16 00:48 | CP.PCM.HP ---
<Terry Mendiola - Last Filed: 12/16/17 01:20> History of Present Illness - History of Present Illness History of Present Illness: Terry Maury, PGY-1 HISTORY & PHYSICAL NOTE FOR HOSPITALIST TEAM CC: Seizures since today evening 42F with pmhx of recurrent seizures, lead poisoning, diverticulitis, asthma presents to ED after being bib EMS s/p multiple seizures. Son is at bedside who provided majority of history. Son reports that patient had 3 witnessed seizure episodes at home prior to arrival while lying down in bed that were a few minutes apart from each other, each lasting 51s, 49s and 25s. Pt had a pre- ictal aura of nausea before the seizure began. Son reports pt started "bobbing head" before the seizure and pt was aware that seizure was going to ensue. Pt had lost consciousness and had diffuse "stiffening" during the episode, however did not have tongue biting, urinary/bowel incontinence, discharge from mouth or hallucinations. He reports that last time his mother had a seizure was 3 months ago and she has a long history of seizures since she was 14 years old. He reports this seizure was "worse than usual." She reportedly had been taking Keppra for the seizures, but stopped taking her medications once she ran out. He doesn't recall supply amount of the Keppra, but reports dosage was 500mg. Pt reports no family history of seizures, and reports etiology of seizures to lead poisoning, however she was unclear about when/how she got lead poisoning. Upon interview, pt was AxOx4 but very lethargic and tired. She reports diffuse pain and weakness but denies fevers, chills, nausea, chest pain, shortness of breath , dizziness, headache. PMD: [place] PMH: Seizures, Diverticulitis, Asthma PSH: Appendectomy, tubal ligation SH: Denies smoking, alcohol FH: denies Meds: Keppra (non-compliant) Present on Admission - Present on Admission Any Indicators Present on Admission: No Review of Systems - Review of Systems All systems: reviewed and no additional remarkable complaints except (as per HPI , otherwise negative) Past Patient History - Infectious Disease Hx of Infectious Diseases: None - Tetanus Immunizations Tetanus Immunization: Unknown - Past Social History Smoking Status: Former Smoker - CARDIAC Hx Cardiac Disorders: No - PULMONARY Hx Asthma: Yes (as a child) - NEUROLOGICAL Hx Seizures: Yes (keppra daily) - HEENT Hx HEENT Problems: No - RENAL Hx Chronic Kidney Disease: No - HEMATOLOGICAL/ONCOLOGICAL Hx Blood Disorders: Yes Other/Comment: lead poisoning as a child - INTEGUMENTARY Hx Dermatological Problems: No - MUSCULOSKELETAL/RHEUMATOLOGICAL Hx Falls: No - GASTROINTESTINAL Hx Gastrointestinal Disorders: Yes Hx Diverticulitis: Yes - GENITOURINARY/GYNECOLOGICAL Hx Genitourinary Disorders: No - PSYCHIATRIC Hx Depression: No Hx Emotional Abuse: No Hx Physical Abuse: No Hx Substance Use: No - SURGICAL HISTORY Hx Appendectomy: Yes Other/Comment: ovarian cysts removed - ANESTHESIA Hx Anesthesia: Yes Hx Anesthesia Reactions: No Meds Allergies/Adverse Reactions: Allergies Allergy/AdvReac Type Severity Reaction Status Date / Time No Known Allergies Allergy Verified 12/15/17 20:44 Physical Exam - Constitutional Appears: Well, Non-toxic, No Acute Distress - Head Exam Head Exam: ATRAUMATIC, NORMAL INSPECTION, NORMOCEPHALIC - Eye Exam Eye Exam: EOMI, Normal appearance, PERRL Pupil Exam: PERRL - ENT Exam ENT Exam: Normal Exam - Neck Exam Neck exam: Positive for: Normal Inspection - Respiratory Exam Respiratory Exam: Clear to Auscultation Bilateral, NORMAL BREATHING PATTERN - Cardiovascular Exam Cardiovascular Exam: REGULAR RHYTHM, +S1, +S2 - GI/Abdominal Exam GI & Abdominal Exam: Soft. absent: Rebound, Tenderness - Extremities Exam Extremities exam: Positive for: normal inspection. Negative for: calf tenderness - Neurological Exam Neurological exam: Alert, CN II-XII Intact, Oriented x3 - Psychiatric Exam Psychiatric exam: Agitated, Normal Mood - Skin Skin Exam: Dry, Intact, Warm Results - Vital Signs Recent Vital Signs: Last Vital Signs Temp 98.5 F 12/15/17 21:03 Pulse 70 12/15/17 21:03 Resp 16 12/15/17 21:03 BP 98/71 L 12/15/17 21:03 Pulse Ox 98 12/15/17 21:03 - Labs Result Diagrams: 12/15/17 21:55 12/15/17 21:55 Assessment & Plan - Assessment and Plan (Free Text) Assessment: 42y/o F with pmhx of recurrent seizures admitted to telemetry s/p multiple witnessed seizures Plan: Recurrent seizures CT Head: 1. No definite acute intracranial abnormality Start Keppra 500mg with NS@100mL/hr Q12H Seizure precautions Neuro checks q6H High fall risk protocol Head of bed 30 degrees NPO diet Aspiration precautions f/u TSH levels Consult Neurology: Dr. Evangelista Hx of Lead poisoning F/u blood lead level Hx of Asthma Start Albuterol 1.25mgIH q6H prn DVT/GI ppx: Lovenox/Protonix Case discussed with and seen by attending physician, Dr. Anderson <Alyce Anderson - Last Filed: 12/16/17 19:48> Results - Vital Signs Recent Vital Signs: Last Vital Signs Temp 99 F 12/16/17 18:00 Pulse 66 12/16/17 18:00 Resp 20 12/16/17 18:00 BP 110/68 12/16/17 18:00 Pulse Ox 97 12/16/17 18:00 - Labs Result Diagrams: 12/16/17 06:30 12/15/17 21:55 Labs: Laboratory Results - last 24 hr 12/16/17 12/16/17 12/16/17 00:04 00:30 06:30 WBC 9.4 RBC 4.59 Hgb 10.7 L Hct 35.0 L MCV 76.3 L MCH 23.3 L MCHC 30.6 L RDW 17.1 H Plt Count 360 MPV 9.8 Gran % 57.9 Lymph % (Auto) 30.1 [place] % (Auto) 7.8 H Eos % (Auto) 3.6 Baso % (Auto) 0.6 Gran # 5.41 Lymph # (Auto) 2.8 [place] # (Auto) 0.7 H Eos # (Auto) 0.3 Baso # (Auto) 0.06 TSH 3rd Generation 0.99 Urine Opiates Screen Negative Urine Methadone Screen Negative Ur Barbiturates Screen Negative Ur Phencyclidine Scrn Negative Ur Amphetamines Screen Negative U Benzodiazepines Scrn Negative U Oth Cocaine Metabols Negative U Cannabinoids Screen Negative Attending/Attestation - Attestation I have personally seen and examined this patient.: Yes I have fully participated in the care of the patient.: Yes I have reviewed all pertinent clinical information: Yes Notes (Text): Pt. was seen and examined. Reports 3 seizures. Only symptom when seen is generalized body aches. 12/16/17 19:47
[2017-12-16 00:53] LABS: BARBITURATES, UR NEGATIVE (NEGATIVE); BENZODIAZEPINES, UR NEGATIVE (NEGATIVE); OPIATES, UR NEGATIVE (NEGATIVE); PHENCYCLIDINE, UR NEGATIVE (NEGATIVE)
[2017-12-16] MEDS ORDERED: Albuterol 0.042% Inhal Sol (1.25 mg/3 mL) UD IH PRN (01:20)
[2017-12-16] MEDS: Sodium Chloride 0.9% 1,000 ML IV SCH (06:22)
[2017-12-16 08:03] LABS: BASO # 0.06 K/mm3 (0.0-2.0); BASO % 0.6 % (0.0-3.0); EOS # 0.3 (0.0-0.7); EOS % 3.6 % (1.5-5.0); GRAN # 5.41 (1.4-6.5); GRAN % 57.9 % (50.0-68.0); HEMOGLOBIN 10.7 g/dL (12.0-16.0); LYMPH # 2.8 (1.2-3.4); LYMPH % 30.1 % (22.0-35.0); MEAN CELL VOLUME 76.3 fl (80.0-105.0); MEAN CORPUSCULAR HEMOGLOBIN 23.3 pg (25.0-35.0); MEAN CORPUSCULAR HGB CONC 30.6 g/dl (31.0-37.0); MEAN PLATELET VOLUME 9.8 fl (7.0-11.0); MONO # 0.7 (0.1-0.6); MONO % 7.8 % (1.0-6.0); RBC 4.59 10^6/uL (3.5-6.1); RED CELL DISTRIBUTION WIDTH 17.1 % (11.5-14.5); WHITE BLOOD COUNT 9.4 10^3/ul (4.5-11.0)
--- NOTE | 2017-12-16 09:24 | CT ---
Date of service: 12/15/2017 PROCEDURE: CT HEAD WITHOUT CONTRAST. HISTORY: recurrent seizures COMPARISON: Comparison made with prior CT scan brain 09/05/2016 TECHNIQUE: Axial computed tomography images were obtained through the head/brain without intravenous contrast. Radiation dose: Total exam DLP = 789.22 mGy-cm. This CT exam was performed using one or more of the following dose reduction techniques: Automated exposure control, adjustment of the mA and/or kV according to patient size, and/or use of iterative reconstruction technique. FINDINGS: HEMORRHAGE: No intracranial hemorrhage. BRAIN: No mass effect or edema. No atrophy or chronic microvascular ischemic changes. VENTRICLES: No obstructive hydrocephalus. Re- demonstrated asymmetry of the lateral ventricles right-side of which remains slightly larger slightly larger than the left side felt to represent an anatomic variation. CALVARIUM: Unremarkable. PARANASAL SINUSES: Unremarkable as visualized. No significant inflammatory changes. MASTOID AIR CELLS: Unremarkable as visualized. No inflammatory changes. OTHER FINDINGS: None. IMPRESSION: No acute intracranial hemorrhage.
[2017-12-16] MEDS ORDERED: levETIRAcetam 500mg IVPB 500 MG/100 ML BAG IV SCH (10:00)
[2017-12-16] MEDS: Enoxaparin 40 mg Syringe SC SCH (10:04)
--- NOTE | 2017-12-16 11:00 | RAD ---
Date of service: 12/15/2017 HISTORY: Seizure COMPARISON: Comparison chest 09/05/2016 FINDINGS: LUNGS: No active pulmonary disease. PLEURA: No significant pleural effusion identified, no pneumothorax apparent. CARDIOVASCULAR: Normal. OSSEOUS STRUCTURES: No significant abnormalities. VISUALIZED UPPER ABDOMEN: Normal. OTHER FINDINGS: None. IMPRESSION: No active disease.
--- NOTE | 2017-12-16 15:31 | CARD ---
APPROVED REPORT Date of service: 12/15/2017 EKG Measurement Heart [id number] <Conclusion> Sinus bradycardia Otherwise normal ECG
--- NOTE | 2017-12-16 17:56 | CP.PCM.CON ---
History of Present Illness - History of Present Illness History of Present Illness: Neurology Consultation Note: Mrs. Little is a 42-year-old woman with a past medical history of recurrent seizures, lead poisoning, diverticulitis, asthma. who presented to the ED after having 3 witnessed seizures at home. She is on Keppra 500 mg BID for seizure prophylaxis. The seizures were reported as starting with an aura of nausea, followed by head-bobbing, then whole body stiffening, not associated with urinary/bowel incontinence. When I saw the patient, she was extremely somnolent and having difficulty staying awake during the examination. She answered all my questions appropriately, but was not fully lucid. She said that she stopped taking her Keppra at home due to the medication making her somnolent. CT scan of the head was normal. Vital signs were normal. Review of Systems - Review of Systems All systems: reviewed and no additional remarkable complaints except Past Patient History - Infectious Disease Hx of Infectious Diseases: None - Tetanus Immunizations Tetanus Immunization: Unknown - Past Social History Smoking Status: Former Smoker - CARDIAC Hx Cardiac Disorders: No - PULMONARY Hx Asthma: Yes (as a child) - NEUROLOGICAL Hx Dizziness: Yes Hx Seizures: Yes (seizure disorder) - HEENT Hx HEENT Problems: No - RENAL Hx Chronic Kidney Disease: No - HEMATOLOGICAL/ONCOLOGICAL Hx Blood Disorders: Yes Other/Comment: lead poisoning as a child - INTEGUMENTARY Hx Dermatological Problems: No - MUSCULOSKELETAL/RHEUMATOLOGICAL Hx Musculoskeletal Disorders: No Hx Falls: No - GASTROINTESTINAL Hx Diverticulitis: Yes HX Swallowing Problems: Yes - GENITOURINARY/GYNECOLOGICAL Hx Genitourinary Disorders: No - PSYCHIATRIC Hx Anxiety: Yes - SURGICAL HISTORY Hx Surgeries: Yes Hx Appendectomy: Yes - ANESTHESIA Hx Anesthesia: Yes Hx Anesthesia Reactions: No Meds Allergies/Adverse Reactions: Allergies Allergy/AdvReac Type Severity Reaction Status Date / Time No Known Allergies Allergy Verified 12/15/17 20:44 - Medications Medications: Current Medications Albuterol Sulfate (Albuterol 0.042% Inhal Wendy (1.25mg/3ml) Ud) 1.25 mg IH Q6H PRN PRN Reason: Shortness of Breath Enoxaparin Sodium (Lovenox) 40 mg SC DAILY [facility] PRN Reason: Protocol Last Admin: 12/16/17 10:04 Dose: 40 mg Sodium Chloride (Sodium Chloride 0.9%) 1,000 mls @ 100 mls/hr IV .Q10H [facility] Last Admin: 12/16/17 06:22 Dose: 100 mls/hr Pantoprazole Sodium (Protonix Inj) 40 mg IVP DAILY [facility] Last Admin: 12/16/17 10:05 Dose: 40 mg Physical Exam - Neurological Exam Neurological exam: Alert, CN II-XII Intact, Normal Gait, Oriented x3, Reflexes Normal Results - Vital Signs Recent Vital Signs: Last Vital Signs Temp 98.0 F 12/16/17 12:00 Pulse 56 L 12/16/17 14:00 Resp 21 12/16/17 12:00 BP 126/73 12/16/17 12:00 Pulse Ox 94 L 12/16/17 06:00 - Labs Result Diagrams: 12/16/17 06:30 12/15/17 21:55 Labs: Laboratory Results - last 24 hr 12/16/17 12/16/17 12/16/17 00:04 00:30 06:30 WBC 9.4 RBC 4.59 Hgb 10.7 L Hct 35.0 L MCV 76.3 L MCH 23.3 L MCHC 30.6 L RDW 17.1 H Plt Count 360 MPV 9.8 Gran % 57.9 Lymph % (Auto) 30.1 [place] % (Auto) 7.8 H Eos % (Auto) 3.6 Baso % (Auto) 0.6 Gran # 5.41 Lymph # (Auto) 2.8 [place] # (Auto) 0.7 H Eos # (Auto) 0.3 Baso # (Auto) 0.06 TSH 3rd Generation 0.99 Urine Opiates Screen Negative Urine Methadone Screen Negative Ur Barbiturates Screen Negative Ur Phencyclidine Scrn Negative Ur Amphetamines Screen Negative U Benzodiazepines Scrn Negative U Oth Cocaine Metabols Negative U Cannabinoids Screen Negative Assessment & Plan (1) Recurrent seizures Assessment and Plan: It is difficult to determine if these seizures are actual epileptic events. I recommend longer term EGG monitoring. In the mean time, it would be better to switch her to another AED that will not cause as much sedation. I will start her on Vimpat 100 mg BID. Thank you. Status: Acute Priority: Medium
[2017-12-16 18:36] VITALS: RESP 20
[2017-12-17 00:50] LABS: ALB/GLOB RATIO 1.1 (1.1-1.8); ALBUMIN 3.6 g/dL (3.0-4.8); ALT/SGPT 20 U/L (7-56); AST/SGOT 17 U/L (14-36); BLOOD UREA NITROGEN 10 mg/dL (7-21); CALCIUM 8.7 mg/dL (8.4-10.5); GFR AFRICAN-AMERICAN > 60; GFR NON-AFRICAN AMERICAN > 60
[2017-12-17] MEDS: Sodium Chloride 0.9% 1,000 ML IV SCH ×3 (05:36→13:38)
[2017-12-17 06:16] VITALS: O2SAT 100
--- NOTE | 2017-12-17 08:53 | CP.PCM.PN ---
<Tri Aponte - Last Filed: 12/17/17 15:25> Subjective - Date & Time of Evaluation Date of Evaluation: 12/17/17 Time of Evaluation: 14:52 - Subjective Subjective: Tri Aponte PGY1 Progress Note for Dr. Debora Bonilla Ms. Little was examined at bedside this morning. She was resting comfortably in bed, and had no complaints overnight. She denied any other episodes of seizures , dizziness, headache, chest pain, shortness of breath, abdominal pain, nausea, vomiting, or dysuria. Objective - Vital Signs/Intake and Output Vital Signs (last 24 hours): Temp Pulse Resp BP Pulse Ox 98.5 F 57 L 20 115/72 100 12/17/17 06:00 12/17/17 06:00 12/17/17 06:00 12/17/17 06:00 12/17/17 06:00 Intake and Output: 12/17/17 12/17/17 06:59 18:59 Intake Total 2220 Output Total 1250 Balance 970 - Medications Medications: Current Medications Albuterol Sulfate (Albuterol 0.042% Inhal Wendy (1.25mg/3ml) Ud) 1.25 mg IH Q6H PRN PRN Reason: Shortness of Breath Enoxaparin Sodium (Lovenox) 40 mg SC DAILY [facility] PRN Reason: Protocol Last Admin: 12/16/17 10:04 Dose: 40 mg Sodium Chloride (Sodium Chloride 0.9%) 1,000 mls @ 100 mls/hr IV .Q10H [facility] Last Admin: 12/17/17 05:37 Dose: Not Given Oxcarbazepine (Trileptal) 300 mg PO BID [facility] PRN Reason: Protocol Last Admin: 12/16/17 18:49 Dose: 300 mg Pantoprazole Sodium (Protonix Inj) 40 mg IVP DAILY [facility] Last Admin: 12/16/17 10:05 Dose: 40 mg - Labs Labs: 12/16/17 06:30 12/16/17 23:55 - Constitutional Appears: Well, No Acute Distress - Head Exam Head Exam: ATRAUMATIC, NORMOCEPHALIC - Eye Exam Eye Exam: EOMI, Normal appearance, PERRL - ENT Exam ENT Exam: Mucous Membranes Moist - Respiratory Exam Respiratory Exam: Clear to Ausculation Bilateral, NORMAL BREATHING PATTERN - Cardiovascular Exam Cardiovascular Exam: REGULAR RHYTHM, +S1, +S2 - GI/Abdominal Exam GI & Abdominal Exam: Soft, Normal Bowel Sounds. absent: Distended, Firm, Tenderness - Extremities Exam Extremities Exam: Normal Inspection. absent: Pedal Edema, Tenderness - Back Exam Back Exam: NORMAL INSPECTION - Neurological Exam Neurological Exam: Alert, Awake, CN II-XII Intact, Oriented x3 - Psychiatric Exam Psychiatric exam: Normal Affect, Normal Mood - Skin Skin Exam: Normal Color Assessment and Plan - Assessment and Plan (Free Text) Assessment: 42y/o F with pmhx of recurrent seizures admitted to telemetry s/p multiple witnessed seizures Plan: Recurrent seizures - pt denied any acute events overnight - CT Head: No definite acute intracranial abnormality - EEG: pending reading - ECHO: pending reading - trop neg x1 - Utox negative - TSH 0.99 - d/c Keppra - start trileptal 300mg q8h, as per neuro - seizure precautions - Neuro checks q6H - High fall risk protocol - head of bed 30 degrees - advance diet - Neurology consulted: Dr. Evangelista, recs appreciated Hx of Lead poisoning - F/u blood lead level Hx of Asthma - Albuterol 1.25mgIH q6H prn DVT/GI ppx: Lovenox/Protonix Case discussed with and seen by Dr. Debora Bonilla <Debora Bonilla R - Last Filed: 12/17/17 21:38> Objective - Vital Signs/Intake and Output Vital Signs (last 24 hours): Temp Pulse Resp BP Pulse Ox 98 F 62 20 120/83 100 12/17/17 17:45 12/17/17 17:45 12/17/17 17:45 12/17/17 17:45 12/17/17 06:00 Intake and Output: 12/17/17 12/18/17 18:59 06:59 Intake Total 1320 Output Total 8 Balance 1312 - Labs Labs: 12/16/17 06:30 12/16/17 23:55 Attending/Attestation - Attestation I have personally seen and examined this patient.: Yes I have fully participated in the care of the patient.: Yes I have reviewed all pertinent clinical information, including history, physical exam and plan: Yes Notes (Text): Patient seen and examined by me at 09:50AM with resident. Case including HPI, physical exam, and assessment and plan discussed with resident. Agree with above with following additions/corrections. Patient is a 42-year-old female with past medical history significant for recurrent seizures, blood poisoning, diverticulitis, and asthma that presented to the emergency room after having multiple seizures at home. Patient states that she is feeling much better today. No more seizure-like activity. She denies any headaches or dizziness. No change in vision. No lightheadedness. No feelings of confusion. No nausea, vomiting, or abdominal pain. No fevers or chills. No chest pain or shortness of breath. No dysuria. No diarrhea or constipation. Physical exam: Gen: Awake and alert sitting up in bed in no acute distress HEENT: Normocephalic, atraumatic. Extraocular muscles intact, pupils equal reactive. No scleral icterus. Oropharynx is pink and moist, no pharyngeal erythema or exudate appreciated. Neck is supple. Cardiovascular: Normal rhythm. Normal S1, S2. No murmurs, rubs, or gallops appreciated Pulmonary: Normal respiratory effort. No rhonchi, rales or wheezing appreciated. Gastrointestinal: Soft, nontender, nondistended, positive bowel sounds all 4 quadrants, no guarding. Musculoskeletal: Normal range of motion all extremities, no calf tenderness, no edema appreciated Central nervous system: AAO x 3. Dermatologic: Skin warm and dry Assessment and plan: Patient is a 42-year-old female with past medical history significant for recurrent seizures, blood poisoning, diverticulitis, and asthma that presented to the emergency room after having multiple seizures at home. 1. Recurrent seizure. Patient stopped home Keppra secondary to drowsiness. Patient changed from IV Keppra here to Trileptal. Patient tolerating Trileptal well. Head CT per radiologist shows no acute intracranial abnormality. 2-D echo results pending. Pending EEG. Pending Keppra level. Continue with seizure precautions. 2. Chronic anemia. No signs of acute bleeding. Continue to monitor CBC 3. History of lead poisoning. Pending lead level 4. History of asthma. No acute exacerbation. Continue nebulizer treatments as needed. 5. GI/DVT prophylaxis. Protonix and Lovenox 6. Patient is a full code Case was discussed in detail with the patient regarding current diagnosis and treatment plan. 12/17/17 21:38
--- NOTE | 2017-12-17 09:37 | CP.PCM.PN ---
Subjective - Date & Time of Evaluation Date of Evaluation: 12/17/17 Time of Evaluation: 09:06 - Subjective Subjective: Marcos Arroyo PGY 2 Neurology Consult Note for Dr. Vazquez Patient was seen and examined at bedside. She denies any seizure-like activity since being in the hospital, and does not recall the episode that happened at home. She states that she has been noncompliant with her Keppra medication due to feeling sleepy on it. When asked who prescribes the Keppra, the patient states that she gets her medications when admitted at hospitals for seizures, most recently at [facility] within the last 3 months. Prior charts note that the patient was [place] [facility] [place]-like activity. On Trileptal, per nursing staff, the patient has been able to ambulate with assistance and use the restroom, and is feeling less somnolent. Objective - Vital Signs/Intake and Output Vital Signs (last 24 hours): Temp Pulse Resp BP Pulse Ox 98.5 F 57 L 20 115/72 100 12/17/17 06:00 12/17/17 06:00 12/17/17 06:00 12/17/17 06:00 12/17/17 06:00 Intake and Output: 12/17/17 12/17/17 06:59 18:59 Intake Total 2220 Output Total 1250 Balance 970 - Medications Medications: Current Medications Albuterol Sulfate (Albuterol 0.042% Inhal Wendy (1.25mg/3ml) Ud) 1.25 mg IH Q6H PRN PRN Reason: Shortness of Breath Enoxaparin Sodium (Lovenox) 40 mg SC DAILY [facility] PRN Reason: Protocol Last Admin: 12/16/17 10:04 Dose: 40 mg Sodium Chloride (Sodium Chloride 0.9%) 1,000 mls @ 100 mls/hr IV .Q10H [facility] Last Admin: 12/17/17 05:37 Dose: Not Given Oxcarbazepine (Trileptal) 300 mg PO BID [facility] PRN Reason: Protocol Last Admin: 12/16/17 18:49 Dose: 300 mg Pantoprazole Sodium (Protonix Inj) 40 mg IVP DAILY [facility] Last Admin: 12/16/17 10:05 Dose: 40 mg - Labs Labs: 12/16/17 06:30 12/16/17 23:55 - Constitutional Appears: Well, Non-toxic, No Acute Distress - Head Exam Head Exam: NORMAL INSPECTION - Eye Exam Eye Exam: EOMI, Normal appearance, PERRL - ENT Exam ENT Exam: Mucous Membranes Moist - Neck Exam Neck Exam: Normal Inspection - Respiratory Exam Respiratory Exam: NORMAL BREATHING PATTERN. absent: Respiratory Distress - Cardiovascular Exam Cardiovascular Exam: RRR, +S1, +S2 - GI/Abdominal Exam GI & Abdominal Exam: Soft, Normal Bowel Sounds. absent: Distended, Tenderness - Extremities Exam Extremities Exam: Full ROM. absent: Pedal Edema - Back Exam Back Exam: NORMAL INSPECTION - Neurological Exam Neurological Exam: Alert, Awake, Oriented x3 Neuro motor strength exam: Left Upper Extremity: 5, Right Upper Extremity: 5, Left Lower Extremity: 5, Right Lower Extremity: 5 - Psychiatric Exam Psychiatric exam: Normal Mood - Skin Skin Exam: Warm Assessment and Plan - Assessment and Plan (Free Text) Assessment: 42-year-old female with a PMH of recurrent seizures (noncompliant with medication), lead poisoning at 3 years old, and asthma who presents with an episode of witnessed seizures likely due to noncompliance with medications. Plan: Seizure disorder, noncompliance with medications - Continue Trileptal 300 mg q12 hours - Seizure precautions - EEG ordered - Echo ordered - Keppra/lead blood level is pending - Aspiration precautions - PT eval recommending home when medically cleared - Encourage medication compliance and proper follow-up after discharge - Recommend longer term EEG monitoring, as outpatient, to determine if actual epileptic events - Upon discharge, patient should f/u Dr. Vazquez in office - Further Recs per Dr. Vazquez Case was reviewed and discussed with attending, Dr. Vazquez
[2017-12-17] MEDS: Enoxaparin 40 mg Syringe SC SCH (10:06)
[2017-12-17 17:46] VITALS: BP 120/83; PULSE 62; TEMP 98
--- NOTE | 2017-12-17 18:07 | CARD ---
APPROVED REPORT Date of service: 12/17/2017 EXAM: Two-dimensional and M-mode echocardiogram with Doppler and color Doppler. INDICATION WEAKNESS,SEIZURES 2D DIMENSIONS Left Atrium (2D)3.4 (1.6-4.0cm)IVSd0.9 (0.7-1.1cm) LVDd4.5 (3.9-5.9cm)PWd0.9 (0.7-1.1cm) LVDs3.0 (2.5-4.0cm)FS (%) 33.6 % LVEF (%)62.4 (>50%) M-Mode DIMENSIONS Aortic Root2.70 (2.2-3.7cm)Aortic Cusp Exc.1.60 (1.5-2.0cm) Aortic Valve AoV Peak Oazfaafp212.0cm/Ina Peak GR.6mmHg Mitral Valve MV E Vxcbjpaw30.3cm/sMV A Jddqatiq46.2cm/sE/A ratio1.4 TDI Lateral E' Peak V13.50cm/sMedial E' Peak V9.85cm/sE/Lateral E'6.8 E/Medial E'9.4 Pulmonary Valve PV Peak Ngppvhvx33.2cm/sPV Peak Grad.1mmHg Tricuspid Valve TR Peak Zqldjhzr459fk/sRAP [id number] Peak Gr.25mmHg [id number] LEFT VENTRICLE The left ventricle is normal size. There is normal left ventricular wall thickness. The left ventricular function is normal.EF-60-65% There is normal LV segmental wall motion. The left ventricular diastolic function is normal. No left ventricle thrombus noted on this study. There is no ventricular septal defect visualized. There is no left ventricular aneurysm. There is no mass noted in the left ventricle. RIGHT VENTRICLE The right ventricle is normal size. There is normal right ventricular wall thickness. The right ventricular systolic function is normal. ATRIA The left atrium size is normal. The right atrium size is normal. The interatrial septum is intact with no evidence for an atrial septal defect. AORTIC VALVE The aortic valve is thickened but opens well. Trivial AR There is no aortic valvular stenosis. There is no aortic valvular vegetation. MITRAL VALVE The mitral valve is thickened but opens well. Mitral regurgitation is trace to mild. There is no mitral valve stenosis. There is no evidence of mitral valve prolapse. TRICUSPID VALVE The tricuspid valve leaflets are thickened , but open well. There is mild tricuspid regurgitation.RVSP-35 mmof hg. There is no tricuspid valve stenosis. There is no tricuspid valve prolapse or vegetation. PULMONIC VALVE The pulmonary valve is normal in structure. There is no pulmonic valvular regurgitation. There is no pulmonic valvular stenosis. GREAT VESSELS The aortic root is normal in size. The ascending aorta is normal in size. The pulmonary artery is normal. The IVC is normal in size and collapses >50% with inspiration. PERICARDIAL EFFUSION There is no pleural effusion. There is no pericardial effusion. <Conclusion> Normal chamber SIze, EF-60-65% Trivial AR Mitral regurgitation is trace to mild. There is mild tricuspid regurgitation.RVSP-35 mmof hg. The IVC is normal in size and collapses >50% with inspiration. There is no pericardial effusion. No Vegetation or thrombus noted.
[2017-12-18] MEDS ORDERED: Pantoprazole 40 mg EC Tab PO SCH (07:30)
--- NOTE | 2017-12-18 09:11 | CP.PCM.DIS ---
<[facility] [place] - Last Filed: 12/18/17 09:10> Provider - Provider Date of Admission: 12/15/17 23:22 Attending physician: Debora Bonilla DO Primary care physician: Darian Velasquez MD Consults: Neuro Time Spent in preparation of Discharge (in minutes): 70 Hospital Course - Lab Results Lab Results: Most Recent Lab Values WBC 9.4 10^3/ul (4.5-11.0) 12/16/17 06:30 RBC 4.59 10^6/uL (3.5-6.1) 12/16/17 06:30 Hgb 10.7 g/dL (12.0-16.0) L 12/16/17 06:30 Hct 35.0 % (36.0-48.0) L 12/16/17 06:30 MCV 76.3 fl (80.0-105.0) L 12/16/17 06:30 MCH 23.3 pg (25.0-35.0) L 12/16/17 06:30 MCHC 30.6 g/dl (31.0-37.0) L 12/16/17 06:30 RDW 17.1 % (11.5-14.5) H 12/16/17 06:30 Plt Count 360 10^3/uL (120.0-450.0) 12/16/17 06:30 MPV 9.8 fl (7.0-11.0) 12/16/17 06:30 Gran % 57.9 % (50.0-68.0) 12/16/17 06:30 Lymph % (Auto) 30.1 % (22.0-35.0) 12/16/17 06:30 [place] % (Auto) 7.8 % (1.0-6.0) H 12/16/17 06:30 Eos % (Auto) 3.6 % (1.5-5.0) 12/16/17 06:30 Baso % (Auto) 0.6 % (0.0-3.0) 12/16/17 06:30 Gran # 5.41 (1.4-6.5) 12/16/17 06:30 Lymph # (Auto) 2.8 (1.2-3.4) 12/16/17 06:30 [place] # (Auto) 0.7 (0.1-0.6) H 12/16/17 06:30 Eos # (Auto) 0.3 (0.0-0.7) 12/16/17 06:30 Baso # (Auto) 0.06 K/mm3 (0.0-2.0) 12/16/17 06:30 Sodium 143 mmol/L (132-148) 12/16/17 23:55 Potassium 3.9 mmol/L (3.6-5.0) 12/16/17 23:55 Chloride 110 mmol/L (98-107) H 12/16/17 23:55 Carbon Dioxide 23 mmol/L (21-33) 12/16/17 23:55 Anion Gap 14 (10-20) 12/16/17 23:55 BUN 10 mg/dL (7-21) 12/16/17 23:55 Creatinine 0.7 mg/dl (0.7-1.2) 12/16/17 23:55 Est GFR ( Amer) > 60 12/16/17 23:55 Est GFR (Non-Af Amer) > 60 12/16/17 23:55 POC Glucose (mg/dL) 84 mg/dL (65-110) 12/15/17 22:32 Random Glucose 99 mg/dL (70-110) 12/16/17 23:55 Calcium 8.7 mg/dL (8.4-10.5) 12/16/17 23:55 Phosphorus 3.2 mg/dL (2.5-4.5) 12/15/17 21:55 Magnesium 2.1 mg/dL (1.7-2.2) 12/15/17 21:55 Total Bilirubin 0.4 mg/dL (0.2-1.3) 12/16/17 23:55 AST 17 U/L (14-36) 12/16/17 23:55 ALT 20 U/L (7-56) 12/16/17 23:55 Alkaline Phosphatase 59 U/L (38-126) 12/16/17 23:55 Lactate Dehydrogenase 454 U/L (333-699) 12/15/17 21:55 Total Creatine Kinase 85 U/L (35-230) 12/15/17 21:55 Troponin I < 0.01 ng/mL 12/15/17 21:55 Total Protein 6.8 g/dL (5.8-8.3) 12/16/17 23:55 Albumin 3.6 g/dL (3.0-4.8) 12/16/17 23:55 Globulin 3.2 gm/dL 12/16/17 23:55 Albumin/Globulin Ratio 1.1 (1.1-1.8) 12/16/17 23:55 TSH 3rd Generation 0.99 mIU/mL (0.46-4.68) 12/16/17 00:30 Urine Opiates Screen Negative (NEGATIVE) 12/16/17 00:04 Urine Methadone Screen Negative (NEGATIVE) 12/16/17 00:04 Ur Barbiturates Screen Negative (NEGATIVE) 12/16/17 00:04 Ur Phencyclidine Scrn Negative (NEGATIVE) 12/16/17 00:04 Ur Amphetamines Screen Negative (NEGATIVE) 12/16/17 00:04 U Benzodiazepines Scrn Negative (NEGATIVE) 12/16/17 00:04 U Oth Cocaine Metabols Negative (NEGATIVE) 12/16/17 00:04 U Cannabinoids Screen Negative (NEGATIVE) 12/16/17 00:04 Whole Blood Lead 35 mcg/dL (<5) H 12/15/17 21:55 - Hospital Course Hospital Course: Ms. Little is a 42 F with pmhx of recurrent seizures, lead poisoning, diverticulitis, asthma who presented to ED after being bib EMS s/p multiple seizures. Pt's son reported that patient had 3 witnessed seizure episodes at home prior to arrival while lying down in bed that were a few minutes apart from each other. Pt had lost consciousness and had diffuse "stiffening" during the episode, however did not have tongue biting, urinary/bowel incontinence, discharge from mouth or hallucinations. Pt had reportedly been taking Keppra for the seizures, but stopped because it made her drowsy. She reported diffuse pain and weakness but denied fevers, chills, nausea, chest pain, shortness of breath, dizziness, headache. In the ED, pt was AAOx4 and had no acute defecits. She was given Keppra 500mg, NS @100ml/hr, and albuterol q6h PRN. Pt was put on aspiration precautions and kept NPO. CT of the head was unremarkable. ECHO showed mild mitral and tricuspid regurg. Neurology was consulted and recommended an EEG and Trileptal 300mg q8h. Pt did not have any reported or witnessed seizures overnight. She was counseled on the importance of medication compliance and recommended to follow up with her primary care physician and neurologist upon discharge. Discharge Exam - Head Exam Head Exam: ATRAUMATIC, NORMAL INSPECTION - Eye Exam Eye Exam: EOMI, PERRL - ENT Exam ENT Exam: Mucous Membranes Moist - Respiratory Exam Respiratory Exam: Clear to PA & Lateral, NORMAL BREATHING PATTERN - Cardiovascular Exam Cardiovascular Exam: REGULAR RHYTHM, +S1, +S2 - GI/Abdominal Exam GI & Abdominal Exam: Normal Bowel Sounds, Soft. absent: Tenderness - Extremities Exam Extremities exam: normal inspection - Back Exam Back exam: NORMAL INSPECTION - Neurological Exam Neurological exam: Alert, CN II-XII Intact, Oriented x3 - Psychiatric Exam Psychiatric exam: Normal Affect, Normal Mood - Skin Skin Exam: Normal Color Discharge Plan - Discharge Medications Prescriptions: OXcarbazepine [Trileptal] 300 mg PO BID 30 Days #60 tab - Follow Up Plan Condition: STABLE Disposition: HOME/ ROUTINE Instructions: Epilepsy in Adults, Oxcarbazepine Additional Instructions: Please follow up with your primary care doctor within 3 to 5 days. Your sodium level will need to be monitored through blood work on the new medication. You will need to follow this with your primary care doctor. Please follow up with Dr. Vazquze, neurology, within 7 days. Please take the following medications as prescribed: Trileptal twice a day. If symptoms return, please visit the emergency department. Referrals: Darian Velasquez MD [Primary Care Provider] - John Vazquez MD [Staff Provider] - <Debora Bonilla - Last Filed: 12/18/17 17:47> Provider - Provider Date of Admission: 12/15/17 23:22 Attending physician: Debora Bonilla DO Primary care physician: Darian Velasquez MD Hospital Course - Lab Results Lab Results: Most Recent Lab Values WBC 9.4 10^3/ul (4.5-11.0) 12/16/17 06:30 RBC 4.59 10^6/uL (3.5-6.1) 12/16/17 06:30 Hgb 10.7 g/dL (12.0-16.0) L 12/16/17 06:30 Hct 35.0 % (36.0-48.0) L 12/16/17 06:30 MCV 76.3 fl (80.0-105.0) L 12/16/17 06:30 MCH 23.3 pg (25.0-35.0) L 12/16/17 06:30 MCHC 30.6 g/dl (31.0-37.0) L 12/16/17 06:30 RDW 17.1 % (11.5-14.5) H 12/16/17 06:30 Plt Count 360 10^3/uL (120.0-450.0) 12/16/17 06:30 MPV 9.8 fl (7.0-11.0) 12/16/17 06:30 Gran % 57.9 % (50.0-68.0) 12/16/17 06:30 Lymph % (Auto) 30.1 % (22.0-35.0) 12/16/17 06:30 [place] % (Auto) 7.8 % (1.0-6.0) H 12/16/17 06:30 Eos % (Auto) 3.6 % (1.5-5.0) 12/16/17 06:30 Baso % (Auto) 0.6 % (0.0-3.0) 12/16/17 06:30 Gran # 5.41 (1.4-6.5) 12/16/17 06:30 Lymph # (Auto) 2.8 (1.2-3.4) 12/16/17 06:30 [place] # (Auto) 0.7 (0.1-0.6) H 12/16/17 06:30 Eos # (Auto) 0.3 (0.0-0.7) 12/16/17 06:30 Baso # (Auto) 0.06 K/mm3 (0.0-2.0) 12/16/17 06:30 Sodium 143 mmol/L (132-148) 12/16/17 23:55 Potassium 3.9 mmol/L (3.6-5.0) 12/16/17 23:55 Chloride 110 mmol/L (98-107) H 12/16/17 23:55 Carbon Dioxide 23 mmol/L (21-33) 12/16/17 23:55 Anion Gap 14 (10-20) 12/16/17 23:55 BUN 10 mg/dL (7-21) 12/16/17 23:55 Creatinine 0.7 mg/dl (0.7-1.2) 12/16/17 23:55 Est GFR ( Amer) > 60 12/16/17 23:55 Est GFR (Non-Af Amer) > 60 12/16/17 23:55 POC Glucose (mg/dL) 84 mg/dL (65-110) 12/15/17 22:32 Random Glucose 99 mg/dL (70-110) 12/16/17 23:55 Calcium 8.7 mg/dL (8.4-10.5) 12/16/17 23:55 Phosphorus 3.2 mg/dL (2.5-4.5) 12/15/17 21:55 Magnesium 2.1 mg/dL (1.7-2.2) 12/15/17 21:55 Total Bilirubin 0.4 mg/dL (0.2-1.3) 12/16/17 23:55 AST 17 U/L (14-36) 12/16/17 23:55 ALT 20 U/L (7-56) 12/16/17 23:55 Alkaline Phosphatase 59 U/L (38-126) 12/16/17 23:55 Lactate Dehydrogenase 454 U/L (333-699) 12/15/17 21:55 Total Creatine Kinase 85 U/L (35-230) 12/15/17 21:55 Troponin I < 0.01 ng/mL 12/15/17 21:55 Total Protein 6.8 g/dL (5.8-8.3) 12/16/17 23:55 Albumin 3.6 g/dL (3.0-4.8) 12/16/17 23:55 Globulin 3.2 gm/dL 12/16/17 23:55 Albumin/Globulin Ratio 1.1 (1.1-1.8) 12/16/17 23:55 TSH 3rd Generation 0.99 mIU/mL (0.46-4.68) 12/16/17 00:30 Urine Opiates Screen Negative (NEGATIVE) 12/16/17 00:04 Urine Methadone Screen Negative (NEGATIVE) 12/16/17 00:04 Ur Barbiturates Screen Negative (NEGATIVE) 12/16/17 00:04 Ur Phencyclidine Scrn Negative (NEGATIVE) 12/16/17 00:04 Ur Amphetamines Screen Negative (NEGATIVE) 12/16/17 00:04 U Benzodiazepines Scrn Negative (NEGATIVE) 12/16/17 00:04 U Oth Cocaine Metabols Negative (NEGATIVE) 12/16/17 00:04 U Cannabinoids Screen Negative (NEGATIVE) 12/16/17 00:04 Whole Blood Lead 35 mcg/dL (<5) H 12/15/17 21:55 Attending/Attestation - Attestation I have personally seen and examined this patient.: Yes I have fully participated in the care of the patient.: Yes I have reviewed all pertinent clinical information, including history, physical exam and plan: Yes Notes (Text): Patient seen and examined by me with resident at at 9:50AM and prior to discharge 12/17/17. Please see progress note from same day. Case including discharge plan discussed with resident. Agree with above with following additions/corrections Patient is a 42-year-old female with past medical history significant for recurrent seizures, blood poisoning, diverticulitis, and asthma that presented to the emergency room after having multiple seizures at home. Please see H&P for details. Patient was admitted with recurrent seizures. Neurology was consulted. Patient was initially started on IV Keppra. Per patient she stopped her home Keppra secondary to feeling drowsy. Keppra was stopped and patient was placed on Trileptal. Patient maintained on Trileptal 300 mg TWICE (not q8hrs as above) a day. Patient had no recurrent seizures while in the hospital. Patient tolerated Trileptal well. Head CT per radiology showed no acute intracranial abnormality. 2-D echo per picker / packer showed normal size chamber, EF 60-65%, trivial AR, mild mitral and tricuspid regurgitation (please see official read for full details). EEG was done. Patient was seen by neurology. EEG results are pending. Case was discussed with neurologist Dr. Vazquez. Patient was cleared for discharged by neurologist Dr. Vazquez with outpatient follow-up. Patient has a history of chronic anemia. H&H remained stable. Patient also with a history of lead poisoning. Levels in 2016 were 77. Levels down trended to 35 here. Patient will need continued outpatient follow up with PMD. All symptoms resolved. Patient cleared for discharge by neurology. She was discharged home. Please see chart for full details. Follow up instructions. Follow up with PMD within 3-5 days. Sodium level will need to be monitored through blood work secondary to being on the new medication of Trileptal. This will need to be done with primary care doctor. Patient to follow up with neurologist Dr. Vazquez within 7 days. All instructions explained to patient in detail. Patient both understands and agrees to all instructions. Time spent in discharging the patient including chart review, medication reconciliation, discussion with the patient, medical assisting program director, consultants, and nursing staff was approximately 35 minutes.
--- NOTE | 2017-12-19 10:07 | CP.PCM.PCO ---
Physician Communication Note - Physician Communication Note Physician Communication Note: Patient is cleared for discharge per Dr. Vazquez, Neurology
== END 2017-12-17 18:41 | disposition home or self-care (01) ==
LOC: ED 20:40 → ERH 23:22 → 2RNO 12-16 00:54
PROVIDERS: ADMIT Internal Medicine; ATTEND Hospitalist
DX: G40.909 Epilepsy, unspecified, not intractable, without status epilepticus (principal); D64.9 Anemia, unspecified; I08.1 Rheumatic disorders of both mitral and tricuspid valves; J45.909 Unspecified asthma, uncomplicated; Z87.891 Personal history of nicotine dependence; Z91.14 Patient's other noncompliance with medication regimen; Z91.89 Other specified personal risk factors, not elsewhere classified
CPT/HCPCS: 70450; 71045; 80053; 80177; 80324; 80345; 80346; 80349; 80353; 80358; 80361; 82550; 82948; 83615; 83655; 83735; 83992; 84100; 84443; 84484; 85025; 85027; 92610; 93005; 93306; 95812; 97116; 97161; 99285; C9113; G0378; G8978; G8979; G8980; G8996; G8997; G8998; J1650; J1953; J7030

== ENCOUNTER 2018-01-20 22:42 | Emergency (ER) | payer MEDICAID ==
[2018-01-20 22:48] VITALS: BMI 29.9
[2018-01-20] MEDS ORDERED: Sodium Chloride 0.9% 500 ML IV STA (22:56)
--- NOTE | 2018-01-20 23:04 | ED PDOC ---
Arrival/HPI - General Chief Complaint: Seizure Time Seen by Provider: 01/20/18 22:44 Historian: Patient - History of Present Illness Narrative History of Present Illness (Text): 01/20/18 23:01 42 year old female, whose past medical history includes seizure disorder, diverticulitis, and asthma, presents to the emergency department brought in by EMS s/p seizure episode. Patient denies any fever, chills, chest pain, shortness of breath, abdominal pain, nausea, vomiting, diarrhea, urinary symptoms, back pain, neck pain, headache, dizziness, or any other complaints. PMD: Dr. Cecile Velasquez Time/Duration: Prior to Arrival Symptom Onset: Sudden Symptom Course: Improving Activities at Onset: Light Context: Home Past Medical History - Provider Review Nursing Documentation Reviewed: Yes - Infectious Disease Hx of Infectious Diseases: None - Tetanus Immunization Tetanus Immunization: Unknown - Cardiac Hx Cardiac Disorders: No - Pulmonary Hx Asthma: Yes (as a child) - Neurological Hx Dizziness: Yes Hx Seizures: Yes (seizure disorder) - HEENT Hx HEENT Disorder: No - Renal Hx Renal Disorder: No - Hematological/Oncological Hx Blood Disorders: Yes Other/Comment: lead poisoning as a child - Integumentary Hx Dermatological Disorder: No - Musculoskeletal/Rheumatological Hx Musculoskeletal Disorders: No Hx Falls: No - Gastrointestinal Hx Diverticulitis: Yes HX Swallowing Problems: Yes - Genitourinary/Gynecological Hx Genitourinary Disorders: No - Psychiatric Hx Anxiety: Yes Hx Substance Use: No - Surgical History Hx Appendectomy: Yes - Anesthesia Hx Anesthesia: Yes Hx Anesthesia Reactions: No - Suicidal Assessment Feels Threatened In Home Enviroment: No Family/Social History - Physician Review Nursing Documentation Reviewed: Yes Family/Social History: No Known Family HX Smoking Status: Former Smoker Hx Alcohol Use: Yes Hx Substance Use: No Hx Substance Use Treatment: No Allergies/Home Meds Allergies/Adverse Reactions: Allergies No Known Allergies Allergy (Verified 01/20/18 22:55) Review of Systems - Physician Review All systems were reviewed & negative as marked: Yes - Review of Systems Constitutional: absent: Fevers, Other (Chills) Respiratory: absent: SOB Cardiovascular: absent: Other Gastrointestinal: absent: Abdominal Pain, Diarrhea, Nausea, Vomiting Genitourinary Female: absent: Dysuria, Frequency, Hematuria Neurological: Seizure. absent: Headache, Dizziness Physical Exam Vital Signs Reviewed: Yes Vital Signs Temp Pulse Resp BP Pulse Ox 01/21/18 04:42 56 L 16 125/73 96 01/21/18 03:10 98.5 F 66 16 110/59 L 97 01/21/18 02:47 98.6 F 61 18 108/64 96 01/21/18 01:47 98.5 F 68 16 120/76 97 01/20/18 22:53 98.8 F 69 14 98/65 L 97 Temperature: Afebrile Blood Pressure: Normal Pulse: Regular Respiratory Rate: Normal Appearance: Positive for: Well-Appearing, Non-Toxic, Comfortable Pain Distress: None Mental Status: Positive for: Alert and Oriented X 3 - Systems Exam Head: Present: Atraumatic, Normocephalic Pupils: Present: PERRL Extroacular Muscles: Present: EOMI Conjunctiva: Present: Normal Mouth: Present: Moist Mucous Membranes Neck: Present: Normal Range of Motion Respiratory/Chest: Present: Clear to Auscultation, Good Air Exchange. No: Respiratory Distress, Accessory Muscle Use Cardiovascular: Present: Regular Rate and Rhythm, Normal S1, S2. No: Murmurs Abdomen: No: Tenderness, Distention, Peritoneal Signs Back: Present: Normal Inspection Upper Extremity: Present: Normal Inspection. No: Cyanosis, Edema Lower Extremity: Present: Normal Inspection. No: Edema Neurological: Present: GCS=15, CN II-XII Intact, Speech Normal Skin: Present: Warm, Dry, Normal Color. No: Rashes Psychiatric: Present: Alert, Oriented x 3, Normal Insight, Normal Concentration Medical Decision Making ED Course and Treatment: 01/20/18 23:07 Impression: 42 year old female presents s/p seizure episode. Plan: -- EKG -- Labs -- IV Fluids -- UA -- reassess and disposition Prior Visits: Notes and results from pervious visits were reviewed. Progress Notes: 01/20/18 22:52 EKG shows NSR at 66 BPM. Normal EKG. Interpreted by me. 01/20/18 23:52 On re-evaluation, patient is complaining of lower abdominal pain. Ordered Abd & Pelvis CT with IV Contrast 01/21/18 00:08 Patient is complaining of nausea. Ordered Zofran Inj EXAM: CT Abdomen and Pelvis With Intravenous Contrast Dictated and Authenticated by: Delon Smart MD 01/21/2018 2:17 AM IMPRESSION: 1. Moderate large amount of retained feces throughout the colon. 2. Hyperintensity in the right uterus approximately 3 cm may represent a fibroid. Ultrasound pelvis recommended with color Doppler interrogation to exclude hypervascular lesion. - Lab Interpretations Lab Results: 01/20/18 23:05 01/20/18 23:05 Lab Results 01/20/18 23:45: Urine Opiates Screen Negative, Urine Methadone Screen Negative, Ur Barbiturates Screen Negative, Ur Phencyclidine Scrn Negative, Ur Amphetamines Screen Negative, U Benzodiazepines Scrn Negative, U Oth Cocaine Metabols Negative, U Cannabinoids Screen Negative 01/20/18 23:45: Urine Color Yellow, Urine Appearance Clear, Urine pH 7.5, Ur Specific [place] 1.010, Urine Protein Negative, Urine Glucose (UA) Negative, Urine Ketones Negative, Urine Blood Trace-intact H, Urine Nitrate Negative, Urine Bilirubin Negative, Urine Urobilinogen 0.2, Ur Leukocyte Esterase Negative , Urine RBC 0 - 2, Urine WBC 0 - 2, Ur Epithelial Cells 3 - 4 01/20/18 23:05: Alcohol, Quantitative < 10 01/20/18 23:05: Sodium 139, Potassium 3.3 L, Chloride 107, Carbon Dioxide 20 L, Anion Gap 16, BUN 12, Creatinine 0.7, Est GFR ( Amer) > 60, Est GFR (Non- Af Amer) > 60, Random Glucose 146 H, Calcium 9.2, Magnesium 2.0, Total Bilirubin 0.4, AST 21, ALT 19, Alkaline Phosphatase 62, Total Protein 7.9, Albumin 4.2, Globulin 3.7, Albumin/Globulin Ratio 1.1, Lipase 187 01/20/18 23:05: WBC 12.5 H D, RBC 4.57, Hgb 10.7 L, Hct 34.9 L, MCV 76.4 L, MCH 23.4 L, MCHC 30.7 L, RDW 17.0 H, Plt Count 313, MPV 9.8, Gran % 75.9 H, Lymph % (Auto) 16.1 L, [place] % (Auto) 6.6 H, Eos % (Auto) 1.1 L, Baso % (Auto) 0.3, Gran # 9.46 H, Lymph # (Auto) 2.0, [place] # (Auto) 0.8 H, Eos # (Auto) 0.1, Baso # ( Auto) 0.04 I have reviewed the lab results: Yes - RAD Interpretation Radiology Orders: 01/20/18 23:50 ABD & PELVIS IV CONTRAST ONLY [CT] Stat - EKG Interpretation Interpreted by ED Physician: Yes Type: 12 lead EKG - Medication Orders Current Medication Orders: Discontinued Medications Sodium Chloride (Sodium Chloride 0.9%) 500 mls @ 1,000 mls/hr IV .Q30M STA Stop: 01/20/18 23:25 Last Admin: 01/20/18 23:14 Dose: 1,000 mls/hr eMAR Start Stop Document 01/20/18 23:14 (Rec: 01/20/18 23:14 [id number] Intravenous Solution Start Date 01/20/18 Start Time 23:14 Ketorolac Tromethamine (Toradol) 15 mg IVP ONCE ONE Stop: 01/20/18 23:57 Last Admin: 01/21/18 00:05 Dose: 15 mg [facility] Pain Assessment Document 01/21/18 00:05 (Rec: 01/21/18 00:06 [id number] Pain Reassessment Is this a pain reassessment? Yes Presence of Pain Presence of Pain Yes Location Upper or Lower Lower Pain Location Body Site Abdomen IVP Administration Document 01/21/18 00:05 (Rec: 01/21/18 00:06 [id number] Charges for Administration # of IVP Administrations 1 Re-Assess: [facility] Pain Assessment Document 01/21/18 01:05 (Rec: 01/21/18 01:27 [id number] Pain Reassessment Is this a pain reassessment? Yes Sleep Is patient sleeping during reassessment? Yes Ondansetron HCl (Zofran Inj) 4 mg IVP STAT STA Stop: 01/21/18 00:09 Last Admin: 01/21/18 00:26 Dose: 4 mg IVP Administration Document 01/21/18 00:26 (Rec: 01/21/18 00:29 [id number] Charges for Administration # of IVP Administrations 1 - Scribe Statement The provider has reviewed the documentation as recorded by the Aimee Rausch Provider Scribe Attestation: All medical record entries made by the Scribjanuary were at my direction and personally dictated by me. I have reviewed the chart and agree that the record accurately reflects my personal performance of the history, physical exam, medical decision making, and the department course for this patient. I have also personally directed, reviewed, and agree with the discharge instructions and disposition. Disposition/Present on Arrival - Present on Arrival History of DVT/PE: No History of Uncontrolled Diabetes: No Urinary Catheter: No History of Decub. Ulcer: No History Surgical Site Infection Following: None - Disposition Diagnosis: Seizure, Fibroid uterus Disposition: HOME/ ROUTINE Disposition Time: 06:20 Condition: GOOD Discharge Instructions (ExitCare): Uterine Fibroids, Seizures Additional Instructions: follow up with your senior center director Referrals: Darian Velasquez MD [Primary Care Provider] - Follow up with primary Forms: [employer] (Guyanese)
[2018-01-20 23:24] LABS: BASO # 0.04 K/mm3 (0.0-2.0); BASO % 0.3 % (0.0-3.0); EOS # 0.1 (0.0-0.7); EOS % 1.1 % (1.5-5.0); GRAN # 9.46 (1.4-6.5); GRAN % 75.9 % (50.0-68.0); HEMOGLOBIN 10.7 g/dL (12.0-16.0); LYMPH % 16.1 % (22.0-35.0); MEAN CELL VOLUME 76.4 fl (80.0-105.0); MEAN CORPUSCULAR HEMOGLOBIN 23.4 pg (25.0-35.0); MEAN CORPUSCULAR HGB CONC 30.7 g/dl (31.0-37.0); MEAN PLATELET VOLUME 9.8 fl (7.0-11.0); MONO # 0.8 (0.1-0.6); MONO % 6.6 % (1.0-6.0); RBC 4.57 10^6/uL (3.5-6.1); WHITE BLOOD COUNT 12.5 10^3/ul (4.5-11.0)
[2018-01-20 23:49] LABS: ALB/GLOB RATIO 1.1 (1.1-1.8); ALBUMIN 4.2 g/dL (3.0-4.8); ALT/SGPT 19 U/L (7-56); AST/SGOT 21 U/L (14-36); BLOOD UREA NITROGEN 12 mg/dL (7-21); CALCIUM 9.2 mg/dL (8.4-10.5); GFR NON-AFRICAN AMERICAN > 60; LIPASE 187 U/L (23-300)
[2018-01-21 00:14] LABS: PH,URINE 7.5 (4.7-8.0); URINE BILIRUBIN NEGATIVE (NEGATIVE); URINE BLOOD TRACE-INTACT (NEGATIVE); URINE GLUCOSE (UA) NEGATIVE (NEGATIVE); URINE LEUKOCYTE ESTERASE NEGATIVE Leu/uL (NEGATIVE); URINE PROTEIN NEGATIVE mg/dL (<30 mg/dL); URINE UROBILINOGEN 0.2 E.U./dL (<1 E.U./dL)
[2018-01-21 00:17] LABS: URINE APPEARANCE CLEAR (CLEAR); URINE COLOR YELLOW (YELLOW)
[2018-01-21 00:32] LABS: BARBITURATES, UR NEGATIVE (NEGATIVE); BENZODIAZEPINES, UR NEGATIVE (NEGATIVE); OPIATES, UR NEGATIVE (NEGATIVE); PHENCYCLIDINE, UR NEGATIVE (NEGATIVE); URINE RBC 0 - 2 /hpf (0-2); URINE WBC 0 - 2 /hpf (0-6)
[2018-01-21] MEDS ORDERED: Iohexol 350 MG/100 ML VIAL ONE (00:45)
[2018-01-21 07:26] VITALS: BP 120/72; PULSE 60; RESP 18; TEMP 97.4; O2SAT 100
--- NOTE | 2018-01-21 08:03 | CT ---
EXAM: CT Abdomen and Pelvis With Intravenous Contrast CLINICAL HISTORY: 42 years old, female; Pain; Abdominal pain; Localized; Lower; Prior surgery; Surgery date: 6+ months; Surgery type: HX appendectomy, HX tubal ligation; Additional info: Lower abd pain TECHNIQUE: Axial computed tomography images of the abdomen and pelvis with intravenous contrast. All CT scans at this facility use at least one of these dose optimization techniques: automated exposure control; mA and/or kV adjustment per patient size (includes targeted exams where dose is matched to clinical indication); or iterative reconstruction. Coronal and sagittal reformatted images were created and reviewed. CONTRAST: 100 mL of omnipaque 350 administered intravenously. COMPARISON: CT - ABD PELVIS W/O PO OR IV CONT 09/05/2016 3:07 AM FINDINGS: Lung bases: Dependent lung atelectasis. ABDOMEN: Liver: Fatty. No masses. Gallbladder and bile ducts: Intact. No calcified stones. No ductal dilation. Pancreas: No mass. No ductal dilation. Spleen: No splenomegaly. Adrenals: No mass. Kidneys and ureters: No solid mass. No hydronephrosis. Stomach and bowel: Moderate large amount of retained feces throughout the colon. PELVIS: Appendix: Appendectomy Bladder: No mass. Reproductive: Hyperintensity in the right uterus approximately 3 cm may represent a fibroid. ABDOMEN and PELVIS: Intraperitoneal space: No free air. No significant fluid collection. Bones/joints: No acute fracture. No dislocation. Soft tissues: No radiopaque foreign body. Vasculature: No aortic aneurysm. Lymph nodes: No enlarged lymph nodes. IMPRESSION: 1. Moderate large amount of retained feces throughout the colon. 2. Hyperintensity in the right uterus approximately 3 cm may represent a fibroid. Ultrasound pelvis recommended with color Doppler interrogation to exclude hypervascular lesion.
--- NOTE | 2018-01-21 15:20 | CARD ---
APPROVED REPORT Date of service: 01/20/2018 EKG Measurement Heart [id number] <Conclusion> Normal sinus rhythm Normal ECG
== END 2018-01-21 07:00 | disposition home or self-care (01) ==
LOC: ED 22:42
DX: G40.909 Epilepsy, unspecified, not intractable, without status epilepticus (principal); D25.9 Leiomyoma of uterus, unspecified; J45.909 Unspecified asthma, uncomplicated; Z87.891 Personal history of nicotine dependence
CPT/HCPCS: 74177; 80053; 80320; 80324; 80345; 80346; 80349; 80353; 80358; 80361; 81001; 83690; 83735; 83992; 85025; 93005; 96374; 96375; 99285; J1885; J2405; J7040; Q9967

== ENCOUNTER 2018-05-28 13:02 | Emergency (ER) | payer MEDICAID ==
[2018-05-28 12:16] VITALS: BMI 29.9
[2018-05-28 12:56] VITALS: RESP 18; TEMP 98.2
--- NOTE | 2018-05-28 13:09 | ED PDOC ---
Arrival/HPI - General Chief Complaint: Seizure Historian: Patient, Family (son) - History of Present Illness Narrative History of Present Illness (Text): 05/28/18 13:09 A 43 year old female, whose past medical history includes seizure disorder and lead poisoning (since childhood), presents to the emergency department for witnessed seizure episodes. Per son, patient had one seizure last night, witness by patient's daughter, and another at approximately 12:00 by him. States with 2nd seizure episode, patient hit her head. Mentions during seizure he witnessed, patient's arms and neck were stiff, legs were shaking bilaterally, and patient was conscious. Son asked patient questions to make sure she knew who she is and where she is, answered questions appropriately. Patient also complains of headache to back of head. No PMD (Goes to [facility]). Past Medical History - Provider Review Nursing Documentation Reviewed: Yes - Infectious Disease Hx of Infectious Diseases: None - Tetanus Immunization Tetanus Immunization: Unknown - Cardiac Hx Cardiac Disorders: No - Pulmonary Hx Asthma: Yes (as a child) - Neurological Hx Dizziness: Yes Hx Seizures: Yes (seizure disorder) - HEENT Hx HEENT Disorder: No - Renal Hx Renal Disorder: No - Hematological/Oncological Hx Blood Disorders: Yes Other/Comment: lead poisoning as a child - Integumentary Hx Dermatological Disorder: No - Musculoskeletal/Rheumatological Hx Musculoskeletal Disorders: No Hx Falls: No - Gastrointestinal Hx Diverticulitis: Yes HX Swallowing Problems: Yes - Genitourinary/Gynecological Hx Genitourinary Disorders: No - Psychiatric Hx Anxiety: Yes Hx Substance Use: No - Surgical History Hx Appendectomy: Yes - Anesthesia Hx Anesthesia: Yes Hx Anesthesia Reactions: No - Suicidal Assessment Feels Threatened In Home Enviroment: No Family/Social History - Physician Review Nursing Documentation Reviewed: Yes Family/Social History: No Known Family HX Smoking Status: Former Smoker Hx Alcohol Use: Yes Hx Substance Use: No Hx Substance Use Treatment: No Allergies/Home Meds Allergies/Adverse Reactions: Allergies No Known Allergies Allergy (Verified 01/20/18 22:55) Review of Systems - Physician Review All systems were reviewed & negative as marked: Yes - Review of Systems Constitutional: Other (head trauma) Neurological: Headache, Seizure Physical Exam - Physical Exam Narrative Physical Exam (Text): Gen: VS reviewed, drowsy, well nourished, nontoxic, mild distress. ENT: normal pharynx. Eye: EOMI, PERRL. Neck: no JVD, supple, no adenopathy. CV: regular rate, regular rhythm, no rubs, no murmur, no gallops, S1, S2, pulses equal and strong. Pulm: no distress, clear to auscultation, no wheeze, no rhonchi, breath sounds equal, no rales. Abd: soft, nontender, no guarding, no rebound, no rigidity, normal bowel sounds. Ext: no edema. Skin: good color, no rash, no cyanosis. Psych: responds appropriately to questions, normal affect. Neuro: oriented x 3, CN2-12 intact grossly, motor intact, sensation intact. Vital Signs Temp Pulse Resp BP Pulse Ox 05/28/18 12:16 98.2 F 73 18 122/74 98 Medical Decision Making ED Course and Treatment: 05/28/18 13:11 Impression: 43 year old female with witnessed seizure episodes. Plan: -- EKG -- Head CT -- Labs -- CXR -- Zofran -- POC Urine Test -- Reassess and disposition Progress Notes: 05/28/18 13:18 patient is now awake and alert and is crying/sobbing. it is reported that the patient's last night. patient is grieving. 05/28/18 15:49 patient is awake and alert, feels well to go home. will go home in the company of family at bedside. patient has been compliant with her medications. pt to follow up with her doctor for medication management for seizure disorder. 05/28/18 15:53 - RAD Interpretation Narrative RAD Interpretations (Text): 05/28/2018 15:[address] IMPRESSION: No acute findings. Dictator: Vini Young MD 05/28/2018 15:24 Chest X-ray IMPRESSION: No active disease. Dictator: Vini Young MD Radiology Orders: 05/28/18 12:28 HEAD W/O CONTRAST [CT] Stat CHEST PORTABLE [RAD] Stat - EKG Interpretation EKG Interpretation (Text): 05/28/18 13:33 1244: nsr at 67 bpm, nml qrs, nml axis, nonspecific t wave abn Interpreted by ED Physician: Yes - Medication Orders Current Medication Orders: Discontinued Medications Ondansetron HCl (Zofran Inj) 4 mg IVP STAT STA Stop: 05/28/18 12:29 - Scribe Statement The provider has reviewed the documentation as recorded by the Aimee Rachel Provider Busteribjanuary Attestation: All medical record entries made by the Scribe were at my direction and personally dictated by me. I have reviewed the chart and agree that the record accurately reflects my personal performance of the history, physical exam, medical decision making, and the department course for this patient. I have also personally directed, reviewed, and agree with the discharge instructions and disposition. Disposition/Present on Arrival - Present on Arrival Any Indicators Present on Arrival: No History of DVT/PE: No History of Uncontrolled Diabetes: No Urinary Catheter: No History of Decub. Ulcer: No History Surgical Site Infection Following: None - Disposition Have Diagnosis and Disposition been Completed?: Yes Diagnosis: Seizure Disposition: HOME/ ROUTINE Disposition Time: 15:54 Patient Plan: Discharge Patient Problems: Current Active Problems Problem Status Onset Seizure Acute Condition: STABLE Discharge Instructions (ExitCare): Seizures, Adult (DC) Additional Instructions: follow up with your regular doctor to discuss your medication for your seizure disorder. Referrals: Darian Velasquez MD [Primary Care Provider] - Follow up with primary Smith Evangelista MD [Staff Provider] - Follow up with primary Forms: [employer] ([place])
[2018-05-28 13:25] LABS: BASO # 0.02 K/mm3 (0.0-2.0); BASO % 0.2 % (0.0-3.0); EOS % 0.1 % (1.5-5.0); GRAN # 6.66 (1.4-6.5); GRAN % 81.4 % (50.0-68.0); HEMOGLOBIN 11.9 g/dL (12.0-16.0); LYMPH # 1.1 (1.2-3.4); LYMPH % 13.8 % (22.0-35.0); MEAN CELL VOLUME 74.7 fl (80.0-105.0); MEAN CORPUSCULAR HEMOGLOBIN 23.3 pg (25.0-35.0); MEAN CORPUSCULAR HGB CONC 31.2 g/dl (31.0-37.0); MEAN PLATELET VOLUME 9.3 fl (7.0-11.0); MONO # 0.4 (0.1-0.6); MONO % 4.5 % (1.0-6.0); RBC 5.1 10^6/uL (3.5-6.1); RED CELL DISTRIBUTION WIDTH 15.7 % (11.5-14.5); WHITE BLOOD COUNT 8.2 10^3/uL (4.5-11.0)
[2018-05-28 13:37] LABS: ALB/GLOB RATIO 1.1 (1.1-1.8); ALBUMIN 4.5 g/dL (3.0-4.8); ALT/SGPT 23 U/L (7-56); AST/SGOT 21 U/L (14-36); BLOOD UREA NITROGEN 10 mg/dL (7-21); CALCIUM 9.5 mg/dL (8.4-10.5); GFR NON-AFRICAN AMERICAN > 60
--- NOTE | 2018-05-28 15:15 | CT ---
Date of service: 05/28/2018 PROCEDURE: CT HEAD WITHOUT CONTRAST. HISTORY: occipital headache, seizure COMPARISON: 12/15/2017 TECHNIQUE: Axial computed tomography images were obtained through the head/brain without intravenous contrast. Radiation dose: Total exam DLP = 789.49 mGy-cm. This CT exam was performed using one or more of the following dose reduction techniques: Automated exposure control, adjustment of the mA and/or kV according to patient size, and/or use of iterative reconstruction technique. FINDINGS: HEMORRHAGE: No intracranial hemorrhage. BRAIN: No mass effect or edema. No atrophy or chronic microvascular ischemic changes. VENTRICLES: Unremarkable. No hydrocephalus. CALVARIUM: Unremarkable. PARANASAL SINUSES: Unremarkable as visualized. No significant inflammatory changes. MASTOID AIR CELLS: Unremarkable as visualized. No inflammatory changes. OTHER FINDINGS: None. IMPRESSION: No acute findings
--- NOTE | 2018-05-28 15:27 | RAD ---
Date of service: 05/28/2018 HISTORY: aspriation COMPARISON: 12/15/2017 FINDINGS: LUNGS: No active pulmonary disease. PLEURA: No significant pleural effusion identified, no pneumothorax apparent. CARDIOVASCULAR: No aortic atherosclerotic calcification present. Normal cardiac size. No pulmonary vascular congestion. OSSEOUS STRUCTURES: No significant abnormalities. VISUALIZED UPPER ABDOMEN: Normal. OTHER FINDINGS: None. IMPRESSION: No active disease.
[2018-05-28 15:57] VITALS: BP 147/71; PULSE 88; O2SAT 96
--- NOTE | 2018-05-28 19:29 | CARD ---
APPROVED REPORT Date of service: 05/28/2018 EKG Measurement Heart [id number] AL [id number] <Conclusion> Normal sinus rhythm Nonspecific T wave abnormality Abnormal ECG
== END 2018-05-28 16:26 | disposition home or self-care (01) ==
LOC: ED 13:02
DX: G40.909 Epilepsy, unspecified, not intractable, without status epilepticus (principal)

== ENCOUNTER 2018-10-03 10:46 | Emergency (ER) | payer MEDICAID ==
[2018-10-03 10:54] VITALS: BMI 27.0
[2018-10-03 10:55] VITALS: RESP 18; TEMP 98.2; O2SAT 98
[2018-10-03] MEDS ORDERED: Sodium Chloride 0.9% 1,000 ML IV STA (11:17)
--- NOTE | 2018-10-03 11:29 | ED PDOC ---
Arrival/HPI - General Chief Complaint: Seizure Time Seen by Provider: 10/03/18 11:02 Historian: Patient, Family - History of Present Illness Narrative History of Present Illness (Text): 10/03/18 11:23 Pt is a 43 yo female with a PMH of seizures, asthma, diverticulitis, lead poisoning who presents after a witnessed seizure by her son. Pt reports non compliance with her seizure medications. Yesterday pt was watching TV and began to have a seizure after seeing flashing lights. This only lasted about 10 seconds. Pt took her oxcarbazepine last night after her seizure. This morning pt had 2 witnessed seizures which lasted about 15 seconds each. Pt states she experienced nausea before the event. Pt was in bed when the seizure occurred, she did not fall, she did not hit her head. Pt took her seizure medication after the seizure and then came to the ED. She also experienced a post ictal state with confusion and lethargy. Denies chest pain, SOB, diarrhea. Time/Duration: Prior to Arrival Symptom Course: Worsening Severity Level: 5 Activities at Onset: Rest Context: Sitting Past Medical History - Infectious Disease Hx of Infectious Diseases: None - Tetanus Immunization Tetanus Immunization: Unknown - Cardiac Hx Cardiac Disorders: No - Pulmonary Hx Asthma: Yes (as a child) - Neurological Hx Dizziness: Yes Hx Seizures: Yes (seizure disorder) - HEENT Hx HEENT Disorder: No - Renal Hx Renal Disorder: No - Hematological/Oncological Hx Blood Disorders: Yes Other/Comment: lead poisoning as a child - Integumentary Hx Dermatological Disorder: No - Musculoskeletal/Rheumatological Hx Musculoskeletal Disorders: No Hx Falls: No - Gastrointestinal Hx Diverticulitis: Yes HX Swallowing Problems: Yes - Genitourinary/Gynecological Hx Genitourinary Disorders: No - Psychiatric Hx Anxiety: Yes Hx Substance Use: No - Surgical History Hx Appendectomy: Yes - Anesthesia Hx Anesthesia: Yes Hx Anesthesia Reactions: No - Suicidal Assessment Feels Threatened In Home Enviroment: No Family/Social History Family/Social History: No Known Family HX Smoking Status: Former Smoker Hx Alcohol Use: Yes Hx Substance Use: No Hx Substance Use Treatment: No Allergies/Home Meds Allergies/Adverse Reactions: Allergies No Known Allergies Allergy (Verified 10/03/18 10:58) Review of Systems - Review of Systems Constitutional: Fatigue Eyes: Normal ENT: Normal Respiratory: Normal Cardiovascular: Normal Gastrointestinal: Nausea Genitourinary Female: Normal Musculoskeletal: Normal Skin: Normal Neurological: Seizure Endocrine: Normal Hemo/Lymphatic: Normal Psychiatric: Normal Physical Exam Vital Signs Reviewed: Yes Vital Signs Temp Pulse Resp BP Pulse Ox 10/03/18 10:55 98.2 F 65 18 138/74 98 10/03/18 10:47 98.2 F 65 18 138/94 H 98 Temperature: Afebrile Blood Pressure: Normal Pulse: Regular Respiratory Rate: Normal Appearance: Positive for: Well-Appearing Mental Status: Positive for: Alert and Oriented X 3 Finger Stick Blood Glucose: 115 - Systems Exam Head: Present: Atraumatic, Normocephalic Pupils: Present: PERRL Extroacular Muscles: Present: EOMI Mouth: Present: Moist Mucous Membranes Neck: Present: Normal Range of Motion Respiratory/Chest: Present: Clear to Auscultation Cardiovascular: Present: Regular Rate and Rhythm Abdomen: Present: Normal Bowel Sounds. No: Tenderness, Distention Upper Extremity: Present: Normal Inspection Lower Extremity: Present: Normal Inspection Neurological: Present: GCS=15, CN II-XII Intact Skin: Present: Warm, Dry, Normal Color Psychiatric: Present: Alert, Oriented x 3 Medical Decision Making ED Course and Treatment: 10/03/18 11:34 witnessed seizure BHCG CMP UDS Trileptal level CBC zofran UA Head CT Neuro paged 10/03/18 11:56 Spoke with Neurology, Dr Evangelista recommened ativan 2mg and Tripleptal 300mg 10/03/18 11:58 EKG shows NSR, RRR, no signs of ST or T wave abnormalities 10/03/18 14:[address] shows no signs of intracranial pathology discharge pt Pt seen, examined, assessment and plan discussed with Dr Belia Vidales PGY1 - RAD Interpretation Radiology Orders: 10/03/18 11:03 HEAD W/O CONTRAST [CT] Stat - Medication Orders Current Medication Orders: Sodium Chloride (Sodium Chloride 0.9%) 1,000 mls @ 999 mls/hr IV .Q1H1M STA Stop: 10/03/18 12:17 Ondansetron HCl (Zofran Inj) 4 mg IVP STAT STA Stop: 10/03/18 11:17 Disposition/Present on Arrival - Present on Arrival Any Indicators Present on Arrival: No History of DVT/PE: No History of Uncontrolled Diabetes: No Urinary Catheter: No History of Decub. Ulcer: No History Surgical Site Infection Following: None - Disposition Have Diagnosis and Disposition been Completed?: Yes Diagnosis: Seizure Disposition: HOME/ ROUTINE Disposition Time: 14:16 Patient Plan: Discharge Patient Problems: Current Active Problems Problem Status Onset Seizure Acute Condition: GOOD Discharge Instructions (ExitCare): Seizures, Adult (DC) Print Language: YORUBA Additional Instructions: Please follow up with your neurologist and take your antiepileptic medications as prescribed Prescriptions: OXcarbazepine [Trileptal] 300 mg PO BID #20 tab Referrals: Eliana Alvarenga MD [Primary Care Provider] - Follow up with primary John Vazquez MD [Staff Provider] - Follow up with primary Forms: [employer] (Slovak)
[2018-10-03 11:47] LABS: ALB/GLOB RATIO 1.2 (1.1-1.8); ALBUMIN 4.3 g/dL (3.0-4.8); ALT/SGPT 16 U/L (7-56); AST/SGOT 20 U/L (14-36); BLOOD UREA NITROGEN 13 mg/dL (7-21); CALCIUM 9.3 mg/dL (8.4-10.5); GFR NON-AFRICAN AMERICAN > 60
[2018-10-03 11:57] LABS: BASO # 0.05 K/mm3 (0.0-2.0); BASO % 0.4 % (0.0-3.0); EOS # 0.1 (0.0-0.7); EOS % 0.6 % (1.5-5.0); HEMOGLOBIN 11.3 g/dL (12.0-16.0); LYMPH # 1.9 (1.2-3.4); LYMPH % 16.4 % (22.0-35.0); MEAN CELL VOLUME 75.5 fl (80.0-105.0); MEAN CORPUSCULAR HEMOGLOBIN 22.7 pg (25.0-35.0); MEAN CORPUSCULAR HGB CONC 30.1 g/dl (31.0-37.0); MEAN PLATELET VOLUME 9.8 fl (7.0-11.0); MONO # 0.5 (0.1-0.6); RBC 4.98 10^6/uL (3.5-6.1); RED CELL DISTRIBUTION WIDTH 16.5 % (11.5-14.5); WHITE BLOOD COUNT 11.4 10^3/uL (4.5-11.0)
[2018-10-03 12:04] LABS: BARBITURATES, UR NEGATIVE (NEGATIVE); BENZODIAZEPINES, UR NEGATIVE (NEGATIVE); OPIATES, UR NEGATIVE (NEGATIVE); PHENCYCLIDINE, UR NEGATIVE (NEGATIVE)
[2018-10-03 12:10] LABS: URINE BILIRUBIN NEGATIVE (NEGATIVE); URINE BLOOD NEGATIVE (NEGATIVE); URINE GLUCOSE (UA) NEGATIVE (NEGATIVE); URINE LEUKOCYTE ESTERASE NEGATIVE Leu/uL (NEGATIVE); URINE PROTEIN NEGATIVE mg/dL (<30 mg/dL); URINE UROBILINOGEN 0.2 E.U./dL (<1 E.U./dL)
[2018-10-03 12:15] LABS: URINE APPEARANCE CLEAR (CLEAR); URINE COLOR LIGHT YELLOW (YELLOW)
--- NOTE | 2018-10-03 13:50 | CT ---
Date of service: 10/03/2018 PROCEDURE: CT HEAD WITHOUT CONTRAST. HISTORY: Seizure COMPARISON: Comparison made with prior CT scan brain 05/28/2018. TECHNIQUE: Axial computed tomography images were obtained through the head/brain without intravenous contrast. Radiation dose: Total exam DLP = 859.94 mGy-cm. This CT exam was performed using one or more of the following dose reduction techniques: Automated exposure control, adjustment of the mA and/or kV according to patient size, and/or use of iterative reconstruction technique. FINDINGS: HEMORRHAGE: No acute parenchymal, subarachnoid or extra-axial hemorrhage. BRAIN: No mass effect or edema. No atrophy or chronic microvascular ischemic changes. VENTRICLES: No obstructive hydrocephalus however there is persistent asymmetry of the lateral ventricles right-sided which is slightly larger than the left side felt to represent an anatomic variation. CALVARIUM: Calvarium intact PARANASAL SINUSES: Minor mucosal thickening seen within 1 or 2 right-sided ethmoid air cells MASTOID AIR CELLS: Unremarkable as visualized. No inflammatory changes. OTHER FINDINGS: None. IMPRESSION: No acute intracranial hemorrhage
--- NOTE | 2018-10-03 16:04 | CP.PCM.HP ---
<Arturo Schwarz - Last Filed: 10/03/18 16:04> History of Present Illness - History of Present Illness History of Present Illness: 43 year old female with a past medical history of seizures, asthma, diverticulitis, and lead poisoning presents to the hospital after witnessed seizures this morning. Patient states she had a seizure yesterday that lasted 20 seconds as per her son, which lead to a loss of consciousness and post-ictal state. Today, the patient had a similar episode this morning and afternoon, then came to the hospital. Patient has had seizures before in the past. Patient is n oncompliant with her seizure medication. She last took it in March, before taking it after her first seizure last night. She states she does not like the way the medication makes her feel. Patient is still driving. Denies chest pain, shortness of breath, nausea, vomiting, diarrhea, fever, chills, numbness, tingling, loss of bowels/bladder, tongue biting. PMD: [facility] Hx: As above Surgical Hx: Appendectomy, tubal ligation Social Hx: Denies smoking, alcohol, or illicit drug use Family Hx: Denies Medications: Trileptal, noncompliant Allergies: NKDA Present on Admission - Present on Admission Any Indicators Present on Admission: No Review of Systems - Review of Systems Review of Systems: 12 point ROS as per HPI, otherwise negative Past Patient History - Infectious Disease Hx of Infectious Diseases: None - Tetanus Immunizations Tetanus Immunization: Unknown - Past Social History Smoking Status: Former Smoker - CARDIAC Hx Cardiac Disorders: No - PULMONARY Hx Asthma: Yes (as a child) - NEUROLOGICAL Hx Dizziness: Yes Hx Seizures: Yes (seizure disorder) - HEENT Hx HEENT Problems: No - RENAL Hx Chronic Kidney Disease: No - HEMATOLOGICAL/ONCOLOGICAL Hx Blood Disorders: Yes Other/Comment: lead poisoning as a child - INTEGUMENTARY Hx Dermatological Problems: No - MUSCULOSKELETAL/RHEUMATOLOGICAL Hx Musculoskeletal Disorders: No Hx Falls: No - GASTROINTESTINAL Hx Diverticulitis: Yes HX Swallowing Problems: Yes - GENITOURINARY/GYNECOLOGICAL Hx Genitourinary Disorders: No - PSYCHIATRIC Hx Anxiety: Yes Hx Substance Use: No - SURGICAL HISTORY Hx Appendectomy: Yes - ANESTHESIA Hx Anesthesia: Yes Hx Anesthesia Reactions: No Meds Home Medications: Home Medication List Medication Instructions Recorded Confirmed Type OXcarbazepine [Trileptal] 300 mg PO BID #20 tab 10/03/18 Rx Allergies/Adverse Reactions: Allergies Allergy/AdvReac Type Severity Reaction Status Date / Time No Known Allergies Allergy Verified 10/03/18 10:58 Physical Exam - Constitutional Appears: Non-toxic, No Acute Distress, Confused - Head Exam Head Exam: ATRAUMATIC, NORMAL INSPECTION, NORMOCEPHALIC - Eye Exam Eye Exam: EOMI, Normal appearance - ENT Exam ENT Exam: Mucous Membranes Moist, Normal Exam - Respiratory Exam Respiratory Exam: Clear to Auscultation Bilateral, NORMAL BREATHING PATTERN. absent: Rales, Rhonchi, Wheezes - Cardiovascular Exam Cardiovascular Exam: RRR, +S1, +S2. absent: Gallop, Rubs, Systolic Murmur - GI/Abdominal Exam GI & Abdominal Exam: Normal Bowel Sounds, Soft. absent: Tenderness - Extremities Exam Extremities exam: Positive for: normal inspection. Negative for: pedal edema - Neurological Exam Neurological exam: Alert, CN II-XII Intact, Oriented x3 - Psychiatric Exam Psychiatric exam: Normal Affect, Normal Mood - Skin Skin Exam: Dry, Intact, Normal Color, Warm Results - Vital Signs Recent Vital Signs: Last Vital Signs Temp 98.2 F 10/03/18 10:55 Pulse 63 10/03/18 15:47 Resp 18 10/03/18 15:47 BP 126/62 10/03/18 15:47 Pulse Ox 98 10/03/18 15:47 - Labs Result Diagrams: 10/03/18 11:29 10/03/18 11:29 Labs: Laboratory Results - last 24 hr 10/03/18 10/03/18 10/03/18 10:53 11:29 11:29 WBC 11.4 H D RBC 4.98 Hgb 11.3 L Hct 37.6 MCV 75.5 L MCH 22.7 L MCHC 30.1 L RDW 16.5 H Plt Count 392 MPV 9.8 Neut % (Auto) 78.6 H Lymph % (Auto) 16.4 L [place] % (Auto) 4.0 Eos % (Auto) 0.6 L Baso % (Auto) 0.4 Lymph # (Auto) 1.9 [place] # (Auto) 0.5 Eos # (Auto) 0.1 Baso # (Auto) 0.05 Absolute Neuts (auto) 8.97 H Sodium Potassium Chloride Carbon Dioxide Anion Gap BUN Creatinine Est GFR ( Amer) Est GFR (Non-Af Amer) POC Glucose (mg/dL) 115 H Random Glucose Calcium Magnesium Total Bilirubin AST ALT Alkaline Phosphatase Total Protein Albumin Globulin Albumin/Globulin Ratio Beta HCG, Quant Urine Color Light yellow Urine Appearance Clear Urine pH 6.0 Ur Specific Bath <= 1.005 Urine Protein Negative Urine Glucose (UA) Negative Urine Ketones Negative Urine Blood Negative Urine Nitrate Negative Urine Bilirubin Negative Urine Urobilinogen 0.2 Ur Leukocyte Esterase Negative Urine Opiates Screen Urine Methadone Screen Ur Barbiturates Screen Ur Phencyclidine Scrn Ur Amphetamines Screen U Benzodiazepines Scrn U Oth Cocaine Metabols U Cannabinoids Screen 10/03/18 10/03/18 10/03/18 11:29 11:29 11:29 WBC RBC Hgb Hct MCV MCH MCHC RDW Plt Count MPV Neut % (Auto) Lymph % (Auto) [place] % (Auto) Eos % (Auto) Baso % (Auto) Lymph # (Auto) [place] # (Auto) Eos # (Auto) Baso # (Auto) Absolute Neuts (auto) Sodium 139 Potassium 4.5 Chloride 108 H Carbon Dioxide 24 Anion Gap 12 BUN 13 Creatinine 0.6 L Est GFR ( Amer) > 60 Est GFR (Non-Af Amer) > 60 POC Glucose (mg/dL) Random Glucose 111 H Calcium 9.3 Magnesium 1.9 Total Bilirubin 0.2 AST 20 ALT 16 Alkaline Phosphatase 67 Total Protein 7.9 Albumin 4.3 Globulin 3.6 Albumin/Globulin Ratio 1.2 Beta HCG, Quant < 2.39 Urine Color Urine Appearance Urine pH Ur Specific Bath Urine Protein Urine Glucose (UA) Urine Ketones Urine Blood Urine Nitrate Urine Bilirubin Urine Urobilinogen Ur Leukocyte Esterase Urine Opiates Screen Negative Urine Methadone Screen Negative Ur Barbiturates Screen Negative Ur Phencyclidine Scrn Negative Ur Amphetamines Screen Negative U Benzodiazepines Scrn Negative U Oth Cocaine Metabols Negative U Cannabinoids Screen Negative Assessment & Plan - Assessment and Plan (Free Text) Plan: 43 year old female with a past medical history of seizures, asthma, diverticulitis, and lead poisoning presents with seizures secondary to noncompliance. Seizure Restart Trileptal Ativan prn for breakthrough seizures Head CT negative Trileptal level pending Neurochecks Seizure precautions Neuro consulted, Dr. Evangelista Asthma Duonebs prn Prophylaxis SCDs Pepdennise Schwarz, PGY-3 <Erasto No - Last Filed: 10/03/18 17:06> Results - Vital Signs Recent Vital Signs: Last Vital Signs Temp 98.2 F 10/03/18 10:55 Pulse 63 10/03/18 15:47 Resp 18 10/03/18 15:47 BP 126/62 10/03/18 15:47 Pulse Ox 98 10/03/18 15:47 - Labs Result Diagrams: 10/03/18 11:29 10/03/18 11:29 Labs: Laboratory Results - last 24 hr 10/03/18 10/03/18 10/03/18 10:53 11:29 11:29 WBC 11.4 H D RBC 4.98 Hgb 11.3 L Hct 37.6 MCV 75.5 L MCH 22.7 L MCHC 30.1 L RDW 16.5 H Plt Count 392 MPV 9.8 Neut % (Auto) 78.6 H Lymph % (Auto) 16.4 L [place] % (Auto) 4.0 Eos % (Auto) 0.6 L Baso % (Auto) 0.4 Lymph # (Auto) 1.9 [place] # (Auto) 0.5 Eos # (Auto) 0.1 Baso # (Auto) 0.05 Absolute Neuts (auto) 8.97 H Sodium Potassium Chloride Carbon Dioxide Anion Gap BUN Creatinine Est GFR ( Amer) Est GFR (Non-Af Amer) POC Glucose (mg/dL) 115 H Random Glucose Calcium Magnesium Total Bilirubin AST ALT Alkaline Phosphatase Total Protein Albumin Globulin Albumin/Globulin Ratio Beta HCG, Quant Urine Color Light yellow Urine Appearance Clear Urine pH 6.0 Ur Specific Bath <= 1.005 Urine Protein Negative Urine Glucose (UA) Negative Urine Ketones Negative Urine Blood Negative Urine Nitrate Negative Urine Bilirubin Negative Urine Urobilinogen 0.2 Ur Leukocyte Esterase Negative Urine Opiates Screen Urine Methadone Screen Ur Barbiturates Screen Ur Phencyclidine Scrn Ur Amphetamines Screen U Benzodiazepines Scrn U Oth Cocaine Metabols U Cannabinoids Screen 10/03/18 10/03/18 10/03/18 11:29 11:29 11:29 WBC RBC Hgb Hct MCV MCH MCHC RDW Plt Count MPV Neut % (Auto) Lymph % (Auto) [place] % (Auto) Eos % (Auto) Baso % (Auto) Lymph # (Auto) [place] # (Auto) Eos # (Auto) Baso # (Auto) Absolute Neuts (auto) Sodium 139 Potassium 4.5 Chloride 108 H Carbon Dioxide 24 Anion Gap 12 BUN 13 Creatinine 0.6 L Est GFR ( Amer) > 60 Est GFR (Non-Af Amer) > 60 POC Glucose (mg/dL) Random Glucose 111 H Calcium 9.3 Magnesium 1.9 Total Bilirubin 0.2 AST 20 ALT 16 Alkaline Phosphatase 67 Total Protein 7.9 Albumin 4.3 Globulin 3.6 Albumin/Globulin Ratio 1.2 Beta HCG, Quant < 2.39 Urine Color Urine Appearance Urine pH Ur Specific [place] Urine Protein Urine Glucose (UA) Urine Ketones Urine Blood Urine Nitrate Urine Bilirubin Urine Urobilinogen Ur Leukocyte Esterase Urine Opiates Screen Negative Urine Methadone Screen Negative Ur Barbiturates Screen Negative Ur Phencyclidine Scrn Negative Ur Amphetamines Screen Negative U Benzodiazepines Scrn Negative U Oth Cocaine Metabols Negative U Cannabinoids Screen Negative Attending/Attestation - Attestation I have personally seen and examined this patient.: Yes I have fully participated in the care of the patient.: Yes I have reviewed all pertinent clinical information: Yes Notes (Text): 10/03/18 17:03 Patient was seen and examined with medical scientist. Agreed with assessment and plan. 43 year old female with a past medical history of seizures, asthma, and non compliance with medication is admitted with H/O seizure followed by post ictal state. Patient does not any focal deficit. CT head is negative for acute finding. Patient is non compliance with her epileptic medication Trileptal which is restarted. We will get Neurology consult. Patient was advised not to drive, will inform DMV . Management plan was discussed in detail with patient. Education was provided.
[2018-10-03] MEDS ORDERED: Albuterol-Ipratrop 3 mg / 0.5 (3 ml) UD IH PRN (16:09)
[2018-10-03 19:27] VITALS: BP 129/74; PULSE 86
--- NOTE | 2018-10-03 19:42 | CARD ---
APPROVED REPORT Date of service: 10/03/2018 EKG Measurement Heart [id number] <Conclusion> Normal sinus rhythm NDSTT abnormalities Borderline ECG
== END 2018-10-03 19:49 | disposition left against medical advice (07) ==
LOC: ED 10:46 → UNDOADMOB 14:55 → ERH 14:55 → UNDOADMOB 17:09 → ERH 17:12
DX: R56.9 Unspecified convulsions (principal); J45.909 Unspecified asthma, uncomplicated; K57.92 Diverticulitis of intestine, part unspecified, without perforation or abscess without bleeding; Z87.891 Personal history of nicotine dependence
CPT/HCPCS: 70450; 80053; 80183; 80324; 80345; 80346; 80349; 80353; 80358; 80361; 81003; 81025; 82948; 83735; 83992; 84702; 85025; 93005; 96374; 96375; 99285; J2060; J2405; J7030